=== PATIENT | male | born 1945 | race Caucasian/White ===

== ENCOUNTER → 2017-02-28 | Outpatient (CLI) | payer MEDICARE, OTHER ==
[2017-02-28 10:41] LABS: Prostate Specific Antigen 2.44 ng/mL (0.00-4.00)
== END | disposition home or self-care (01) ==
LOC: LABWHC1 07:01
PROVIDERS: ATTEND Internal Medicine Interventional Cardiology
DX: E78.2 Mixed hyperlipidemia (principal)
CPT/HCPCS: 36415; 80061; 84153; 84450; 84460

== ENCOUNTER → 2018-01-12 | Outpatient (CLI) | payer MEDICARE, OTHER ==
[2018-01-12 19:12] LABS: ALT 25 U/L (21-72); AST 18 U/L (17-59); Alkaline Phosphatase 74 U/L (38-126); Anion Gap 9 mmol/L; Blood Urea Nitrogen 16 mg/dL (9-20); Calcium 9.3 mg/dL (8.4-10.2); Carbon Dioxide 29 mmol/L (22-30); Chloride 97 mmol/L (98-107); Cholesterol 132 mg/dL (<200); Glucose 93 mg/dL (74-99); HDL Cholesterol 58 mg/dL (40-60); LDL Cholesterol,Calculated 61 mg/dL (0-99); Sodium 135 mmol/L (137-145); Total Bilirubin 1.5 mg/dL (0.2-1.3); Total Protein 6.9 g/dL (6.3-8.2); Triglycerides 64 mg/dL (<150)
[2018-01-13 01:30] LABS: Hemoglobin A1C 5.9 % (4.0-6.0)
== END | disposition home or self-care (01) ==
LOC: MMGSC 10:31
PROVIDERS: ATTEND Family Medicine
DX: E78.5 Hyperlipidemia, unspecified (principal); I10 Essential (primary) hypertension; R73.02 Impaired glucose tolerance (oral)
CPT/HCPCS: 36415; 80053; 80061; 83036

== ENCOUNTER → 2018-02-25 | Outpatient (CLI) | payer MEDICARE, OTHER ==
[2018-02-25 09:28] LABS: ALT 17 U/L (21-72); AST 16 U/L (17-59); Albumin 3.7 g/dL (3.5-5.0); Alkaline Phosphatase 64 U/L (38-126); Anion Gap 10 mmol/L; Blood Urea Nitrogen 16 mg/dL (9-20); Calcium 9.1 mg/dL (8.4-10.2); Carbon Dioxide 27 mmol/L (22-30); Chloride 100 mmol/L (98-107); Cholesterol 114 mg/dL (<200); Glucose 102 mg/dL (74-99); HDL Cholesterol 59 mg/dL (40-60); LDL Cholesterol,Calculated 47 mg/dL (0-99); Sodium 137 mmol/L (137-145); Total Bilirubin 1.4 mg/dL (0.2-1.3); Total Protein 6.6 g/dL (6.3-8.2); Triglycerides 41 mg/dL (<150)
== END | disposition home or self-care (01) ==
LOC: LABWHC1 08:19
PROVIDERS: ATTEND Internal Medicine Interventional Cardiology
DX: E78.2 Mixed hyperlipidemia (principal)
CPT/HCPCS: 36415; 80053; 80061

== ENCOUNTER 2018-03-07 07:54 | Day surgery (SDC) | payer MEDICARE, OTHER ==
[2018-03-03 11:42] VITALS: BMI 29.5
[~2018-03-07 07:54] MED LIST: LACTATED RINGERS 1,000 ML IV SCH; LIDOCAINE 1% 20 ML VIAL (10MG/ML) FOR IV START INTRADERMA PRN
[2018-03-07 08:36] VITALS: TEMP 97.8
[2018-03-07] MEDS ORDERED: PROPOFOL 10 MG/ML 20 ML VIAL IV ONE (09:14)
--- NOTE | 2018-03-07 09:59 | P.PCN ---
Date of Procedure: 03/07/18 Procedure(s) Performed: Procedure: Colonoscopy and biopsy and polypectomy. Preoperative diagnosis: Positive cologuard test. Postoperative diagnosis: 1. 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 2. Two sigmoid polyps snared at 30 and 50 cm from the anal verge. 3. Significant sigmoid diverticulosis with no evidence of acute diverticulitis or strictures. Preparation: HalfLytely prep. Sedation: Was provided by anesthesia. Brief clinical history: The patient is a 72-year-old male who is scheduled for this evaluation because of finding of cologuard positive test. The patient has no abdominal complaints, overt bleeding or anemia. No family history of colon cancer. This would be his first colonoscopy. Procedure: With the patient on his left lateral decubitus position and after informed consent and adequate sedation, the perianal area was inspected and it did not show any fissures or fistulas. There were no masses felt on digital rectal examination. The Olympus CFQ 160L video colonoscope was then inserted in the rectum in the usual fashion and advanced to the cecum. There was an extensive, flat and spread out polypoid area in the proximal right colon covering circumferentially a segment of 5-7 cm probably representing tubulovillous adenoma. Multiple biopsies obtained to rule out cancer. I also obtained picture of that area. There was significant diverticulosis in the sigmoid with no evidence of acute diverticulitis or strictures. At 50 cm from the anal verge, there was a medium-sized flat polyp which I removed piecemeal with the snare and at 30 cm from the anal verge, there was a pedunculated polyp measuring around 2 cm which was snared and retrieved by suctioning it to the tip of the endoscope and withdrawing the endoscope and restarting the examination. I retroflexed the endoscope in the rectum before the endoscope was withdrawn. The patient tolerated the procedure well. Plan: I summarized the findings to the patient. Will await pathology results and make further plans. I will keep you updated on his progress. He will follow up with you as planned.
[2018-03-07 10:01] VITALS: RESP 16
[2018-03-07 10:12] VITALS: BP 137/90; PULSE 83
== END 2018-03-07 10:43 | disposition home or self-care (01) ==
LOC: ORWHC2ENDO 07:54
DX: D12.2 Benign neoplasm of ascending colon (principal); D12.5 Benign neoplasm of sigmoid colon; K57.30 Diverticulosis of large intestine without perforation or abscess without bleeding; I10 Essential (primary) hypertension; E78.5 Hyperlipidemia, unspecified; J44.9 Chronic obstructive pulmonary disease, unspecified; M19.90 Unspecified osteoarthritis, unspecified site; I48.91 Unspecified atrial fibrillation; E66.9 Obesity, unspecified; Z68.29 Body mass index [BMI] 29.0-29.9, adult; Z79.02 Long term (current) use of antithrombotics/antiplatelets; Z79.899 Other long term (current) drug therapy
CPT/HCPCS: 88305; 45380; 45385; J2704

== ENCOUNTER → 2018-04-05 | Outpatient (CLI) | payer MEDICARE, OTHER ==
[2018-04-05 08:38] LABS: Anisocytosis Slight; HCT 41.1 % (39.0-53.0); HGB 13.2 gm/dL (13.0-17.5); Hypochromasia Slight; MCH 26.7 pg (25.0-35.0); MCHC 32.1 g/dL (31.0-37.0); MCV 83.4 fL (80.0-100.0); Mean Platelet Volume 7.1; Platelet Count 291 k/uL (150-450); RBC 4.93 m/uL (4.30-5.90); RDW 16.4 % (11.5-15.5); WBC 6.4 k/uL (3.8-10.6)
[2018-04-05 09:02] LABS: Anion Gap 13 mmol/L; Blood Urea Nitrogen 14 mg/dL (9-20); Carbon Dioxide 25 mmol/L (22-30); Chloride 98 mmol/L (98-107); Potassium 4.7 mmol/L (3.5-5.1); Sodium 136 mmol/L (137-145)
== END | disposition home or self-care (01) ==
LOC: LABPAT 08:01
PROVIDERS: ATTEND Internal Medicine Interventional Cardiology
DX: Z01.812 Encounter for preprocedural laboratory examination (principal); I25.10 Atherosclerotic heart disease of native coronary artery without angina pectoris
CPT/HCPCS: 36415; 80051; 82565; 84520; 85027

== ENCOUNTER 2018-04-18 06:19 | Day surgery (SDC) | payer MEDICARE, OTHER ==
[2018-04-07 12:11] VITALS: BMI 29.5
[2018-04-18] MEDS ORDERED: NITROGLYCERIN SL TABS 0.4 MG TAB SUBLINGUAL PRN (06:22)
[2018-04-18] MEDS ORDERED: ASPIRIN 325 MG TAB PO STA (06:22)
[2018-04-18] MEDS ORDERED: ATORVASTATIN 80 MG TAB PO STA (06:22)
[2018-04-18] MEDS ORDERED: ALPRAZolam 0.5 MG TAB PO PRN (06:22)
[2018-04-18] MEDS ORDERED: ALPRAZolam 0.25 MG TAB PO PRN (06:22)
[2018-04-18] MEDS ORDERED: SODIUM CHLORIDE 0.9% 1,000 ML in EMPTY BAG 1 BAG IV ONE (06:22)
[2018-04-18 06:53] VITALS: TEMP 97.55
[2018-04-18] MEDS ORDERED: VERAPAMIL 2.5 MG/ML 2 ML AMP ONE (07:14)
[2018-04-18] MEDS ORDERED: diphenhydrAMINE 50 MG/ML 1 ML VIAL ONE (07:25)
[2018-04-18] MEDS ORDERED: fentaNYL (PF) 50 MCG/ML 2 ML AMP ONE (07:25)
[2018-04-18] MEDS ORDERED: diphenhydrAMINE 50 MG/ML 1 ML VIAL IVP ONE (07:37)
[2018-04-18] MEDS ORDERED: fentaNYL (PF) 50 MCG/ML 2 ML AMP IV ONE (07:37)
[2018-04-18] MEDS ORDERED: IV FLUID CONTINUATION 950 ML IV ONE (07:38)
[2018-04-18] MEDS ORDERED: LIDOCAINE 2% INJ 20 MG/ML SQ ONE (07:43)
[2018-04-18] MEDS ORDERED: VERAPAMIL SYRINGE (5 MG/10 ML) INTRAARTER ONE (07:45)
[2018-04-18] MEDS ORDERED: HEPARIN SODIUM 1,000 UN/ML (10ML VL) ONE (07:54)
[2018-04-18] MEDS ORDERED: HEPARIN SODIUM 1,000 UN/ML (10ML VL) IV ONE (07:55)
[2018-04-18] MEDS ORDERED: IOPAMIDOL-370 125ML BTL INJ ONE (07:58)
[2018-04-18] MEDS ORDERED: RX INFO: IV CONTRAST WAS GIVEN 1 EACH MISC MISCELLANE PRN (08:18)
[2018-04-18] MEDS ORDERED: SODIUM CHLORIDE 0.9% 1,000 ML IV SCH (08:30)
--- NOTE | 2018-04-18 08:51 | CC ---
CARDIAC CATHETERIZATION REPORT Mr. Frank is a 72-year-old male with a known history of chronic persistent atrial fibrillation, history of hypertension who has been complaining of symptoms of dyspnea. He underwent a myocardial perfusion imaging that revealed evidence of inducible ischemia involving the inferior wall. In view of that, recommendation was made regarding cardiac catheterization. The procedure as well as the risks and the complications were discussed with the patient who is in full understanding and agreement. PROCEDURE: Patient was brought to [facility] in a fasting semi-sedated state after receiving fentanyl and Benadryl and achieving moderate conscious sedated state. He was using Xylocaine anesthesia in the Seldinger technique, a 6-Guamanian sheath was introduced in the right radial artery. Selective right and left angiography performed using 5-Guamanian 3.5 bend right right and left Taylor catheter. Multiple views of the coronary artery including hemiaxial views were obtained. Following that 5-Guamanian tight pigtail catheter was introduced in the left ventricle and 30-degree ABRAHAM view of the left ventricle was obtained. Following that, the catheter and sheaths were removed. Hemostasis was obtained with deployment of a TR band. There was no immediate complication. Patient was returned to his room in stable condition. Of note, the patient received 5000 units of intravenous heparin as well as intra- arterial verapamil. FINDINGS: FLUOROSCOPY: There was calcification involving the left anterior descending artery. LEFT MAIN: This is a large-sized vessel trifurcating in the left circumflex, left anterior descending artery and ramus intermedius. Left main coronary artery has no evidence of high-grade stenosis. LEFT ANTERIOR DESCENDING ARTERY: This is a large-sized vessel reaching to the apex with a wraparound apex segment giving rise to a small diagonal branch proximally. After the takeoff of the diagonal branch and first septal life sciences manager, there is tubular lesion of about 40% without any evidence of high-grade stenosis. LEFT CIRCUMFLEX: This is a nondominant vessel giving rise to large obtuse marginal branch. The left circumflex obtuse marginal branch has intimal disease of about 30% to 40% without any evidence of high-grade stenosis. RAMUS INTERMEDIUS: This is a small size vessel that has intimal disease without any evidence of high-grade stenosis. RIGHT CORONARY ARTERY: This is a dominant vessel large in caliber bifurcating distally PDA and posterolateral segment and branches. The right coronary artery in mid segment has an eccentric lesion of about 30% to 40%. The rest of the vessel has no high-grade stenosis. LEFT VENTRICULOGRAM: Left ventriculogram was performed in 30-degree ABRAHAM view and revealed normal left ventricular size asystolic function, ejection fraction 60%. There was no significant mitral regurgitation. HEMODYNAMICS: There was no gradient across the aortic valve. The left ventricular end- diastolic pressure was 16 to 20 mmHg. CONCLUSION: 1. Mild to moderate triple-vessel coronary artery disease. 2. Calcified left anterior descending artery. 3. Normal left ventricular size and systolic function. RECOMMENDATION: In view of finding anatomy, I recommend continue medical therapy with aggressive coronary risk modifications being initiated. Those findings and recommendation were discussed with the patient and his family and are in full understanding and agreement. Duration of procedure is 18 minutes. MMODL / PETEN: [id number] /
[2018-04-18] MEDS ORDERED: amLODIPine 5 MG TAB PO SCH (09:00)
[2018-04-18] MEDS ORDERED: CHOLECALCIFEROL 1,000 UNIT TAB PO SCH (09:00)
[2018-04-18] MEDS ORDERED: METOPROLOL TARTRATE 50 MG TAB PO SCH (09:00)
--- NOTE | 2018-04-18 09:00 | LTR ---
April 18, 2018 Re: Curtis Frank Dear Dr. Rivas: I had the opportunity to perform cardiac catheterization on Mr. Frank at [facility] on the 18 of April and a full copy of the procedure note will be forwarded to you. In brief, he was found to have [id number] coronary artery disease without any significant progression compared with the images obtained in 2015. Based on those findings, I recommend continue medical therapy with aggressive coronary risk modification that has been initiated. Thank you again for allowing me the opportunity to participate in his care. Please feel free to call for any questions. Sincerely yours, MD ARLET SalmeronL / PETEN: [id number] /
[2018-04-18 12:06] VITALS: RESP 16
[2018-04-18 13:35] VITALS: BP 152/78; PULSE 63
[2018-04-19] MEDS ORDERED: NON-FORMULARY DRUG (Lovastatin 20 MG) PO SCH (08:20)
== END 2018-04-18 13:35 | disposition home or self-care (01) ==
LOC: CATHCVL 06:19
PROVIDERS: ATTEND Internal Medicine Interventional Cardiology
DX: I25.10 Atherosclerotic heart disease of native coronary artery without angina pectoris (principal); I25.84 Coronary atherosclerosis due to calcified coronary lesion; I10 Essential (primary) hypertension; I42.8 Other cardiomyopathies; E78.2 Mixed hyperlipidemia; F17.210 Nicotine dependence, cigarettes, uncomplicated; Z82.49 Family history of ischemic heart disease and other diseases of the circulatory system; I48.1 Persistent atrial fibrillation; Z79.01 Long term (current) use of anticoagulants; Z79.899 Other long term (current) drug therapy
CPT/HCPCS: 93458; C1894; C1769; J2001; J1200; J3010; J1644; Q9967

== ENCOUNTER → 2018-11-17 | Outpatient (CLI) | payer MEDICARE, OTHER ==
[2018-11-17 07:31] LABS: Anisocytosis Slight; HCT 34.8 % (39.0-53.0); HGB 10.6 gm/dL (13.0-17.5); Hypochromasia Marked; MCH 24.6 pg (25.0-35.0); MCHC 30.5 g/dL (31.0-37.0); MCV 80.9 fL (80.0-100.0); Mean Platelet Volume 7.4; Platelet Count 304 k/uL (150-450); RDW 16.2 % (11.5-15.5); WBC 6.8 k/uL (3.8-10.6)
[2018-11-17 16:02] LABS: ALT 11 U/L (10-49); AST 15 U/L (14-35); Alkaline Phosphatase 80 U/L (41-126); Calcium 8.6 mg/dL (8.7-10.3); Carbon Dioxide 26.8 mmol/L (21.6-31.8); Chloride 102 mmol/L (96-109); Cholesterol 111 mg/dL (0-200); Glucose 105 mg/dL (70-110); Potassium 4.6 mmol/L (3.5-5.5); Sodium 135 mmol/L (135-145); Total Bilirubin 1.2 mg/dL (0.3-1.2); Triglycerides <50.0 mg/dL (0.0-149.0); VLDL Calculation 9.98 mg/dL (5.00-40.00)
== END ==
LOC: LABWHC1 06:52
PROVIDERS: ATTEND Family Medicine
DX: Z00.00 Encounter for general adult medical examination without abnormal findings (principal); E78.2 Mixed hyperlipidemia
CPT/HCPCS: 36415; 80053; 80061; 84439; 84443; 85027

== ENCOUNTER 2019-01-16 10:40 | Day surgery (SDC) | payer MEDICARE, OTHER ==
[2019-01-12 10:58] VITALS: BMI 31.7
[2019-01-16 11:23] VITALS: TEMP 97.1
[2019-01-16] MEDS ORDERED: PROPOFOL 10 MG/ML 20 ML VIAL IV ONE (12:07)
[2019-01-16] MEDS ORDERED: LIDOCAINE 1% INJ 10MG/ML (20 ML MDV) ONE (12:07)
[2019-01-16] MEDS ORDERED: KETAMINE 10 MG/ML 20 ML VIAL ONE (12:07)
[2019-01-16 12:46] VITALS: RESP 18
--- NOTE | 2019-01-16 12:54 | P.PCN ---
Date of Procedure: 01/16/19 Procedure(s) Performed: Procedure: 1. Esophagogastroduodenoscopy and biopsy. 2. Colonoscopy and biopsy. Preoperative diagnosis: Anemia, history of positive cologuard and history of tubulovillous adenoma. Postoperative diagnosis: 1. Hiatal hernia with low-grade distal esophagitis. 2. Gastritis and duodenitis. 3. Sigmoid diverticulosis with no evidence of acute diverticulitis or strictures. 4. Previously described extensive flat and spread out polypoid area in the proximal right colon and is again visualized and biopsied. Preparation: HalfLytely prep. Sedation: Was provided by anesthesia. Brief clinical history: The patient is a 73-year-old male who was evaluated in the office last month because of positive cologuard test. The patient has anemia with decreased MCV but no overt bleeding. He had colonoscopy with me in February 2018 and had an extensive spread out lesion in the right colon that on biopsies showed tubulovillous adenoma with no dysplasia. 2 sigmoid polyps were snared at that time and those showed tubulovillous adenoma with no dysplasia. This evaluation is to assess for a possible upper GI source of bleeding and re- evaluate the right colon area to make further plans. Procedure: With the patient on his left lateral decubitus position and after informed consent and adequate sedation, I passed the Olympus GIF H190 video upper endoscope through the cricopharyngeus down the esophagus. There was a small sliding hiatal hernia but no obvious esophagitis or complicated reflux disease. The endoscope was then passed into the stomach which was insufflated with air and inspected in detail including the retroflex view in the cardia. There was some mottling and erythema in the antrum and few erosions but no ulcers or bleeding. Pyloric channel did not show any ulcers. Duodenal bulb showed erythema, edema and multiple erosions but no ulcers or active bleeding. Post bulbar area and descending duodenum appeared within normal limits. I obtained biopsies from the antrum and esophagus then the endoscope was withdrawn and I proceeded with the colonoscopy. The perianal area was inspected and it did not show any fissures or fistulas. There were no masses felt on digital rectal examination. The Olympus CFH 190L video colonoscope was then inserted in the rectum in the usual fashion and advanced to the cecum. There was extensive, flat and spread out polypoid area in the proximal right colon covering circumferentially a segment of 5-7 cm as previously described. A picture and multiple biopsies were obtained. There was significant diverticulosis in the sigmoid with no evidence of acute diverticulitis or strictures. No other pathology was noted. I retroflexed the endoscope in the rectum before the endoscope was withdrawn. The patient tolerated the procedure well. Plan: I summarized the findings to the patient. Will await pathology results and make further plans. Consideration can be made for resection of the involved area in the right colon if cleared by you and by surgery. I will keep you updated on his progress.
[2019-01-16 13:02] VITALS: BP 131/82; PULSE 75
== END 2019-01-16 13:36 | disposition home or self-care (01) ==
LOC: ORWHC2ENDO 10:40
DX: D12.2 Benign neoplasm of ascending colon (principal); K29.50 Unspecified chronic gastritis without bleeding; K20.9 Esophagitis, unspecified; D64.9 Anemia, unspecified; K57.30 Diverticulosis of large intestine without perforation or abscess without bleeding; K29.80 Duodenitis without bleeding; Z86.010 Personal history of colon polyps; I10 Essential (primary) hypertension; M19.90 Unspecified osteoarthritis, unspecified site; I48.91 Unspecified atrial fibrillation; E78.5 Hyperlipidemia, unspecified; I25.10 Atherosclerotic heart disease of native coronary artery without angina pectoris; E66.9 Obesity, unspecified; Z68.31 Body mass index [BMI] 31.0-31.9, adult; Z79.01 Long term (current) use of anticoagulants; Z79.899 Other long term (current) drug therapy
CPT/HCPCS: 45380; 43239; 88305; J2001; J2704

== ENCOUNTER 2019-03-27 11:07 | Inpatient (IN) | payer MEDICARE, OTHER ==
[2019-03-27] MEDS ORDERED: IPRATROPIUM-ALBUTEROL 3 ML NEB INHALATION STA (11:22)
[2019-03-27 11:46] LABS: Anisocytosis Slight; Basophils # (A) 0.1 k/uL (0-0.2); Basophils % (A) 1 %; Eosinophils # (A) 0.4 k/uL (0-0.7); Eosinophils % (A) 5 %; HCT 33.9 % (39.0-53.0); HGB 10.1 gm/dL (13.0-17.5); Hypochromasia Marked; Lymphocytes # (A) 1.4 k/uL (1.0-4.8); Lymphocytes % (A) 19 %; MCHC 29.7 g/dL (31.0-37.0); MCV 74.2 fL (80.0-100.0); Mean Platelet Volume 7.9; Microcytosis Slight; Monocytes # (A) 0.6 k/uL (0-1.0); Monocytes % (A) 9 %; Neutrophils # (A) 4.5 k/uL (1.3-7.7); Neutrophils % (A) 63 %; Platelet Count 329 k/uL (150-450); Poikilocytosis Slight; RBC 4.57 m/uL (4.30-5.90); RDW 16.8 % (11.5-15.5); WBC 7.1 k/uL (3.8-10.6)
--- NOTE | 2019-03-27 11:49 | ED ---
SOB HPI - General Chief Complaint: Shortness of Breath Stated Complaint: fluid on lungs Time Seen by Provider: 03/27/19 11:17 Source: patient, RN notes reviewed, old records reviewed Mode of arrival: ambulatory Limitations: no limitations - History of Present Illness Initial Comments: This is a 73-year-old male the ER for evaluation. He is presented today for evaluation of shortness of breath. Patient has long history of smoking with risk factors for heart disease no history of heart failure. Recent travel to and from [place] in a car, he has significant swelling of his lower extremities and significant shortness of breath. Positive cough no fever. No current chest pain. MD Complaint: shortness of breath, cough -: days(s), week(s) Severity: moderate Severity scale (1-10): 4 Consistency: constant Improves With: oxygen, rest Worsens With: exertion Known History Of: COPD, congestive heart failure Context: recent URI Associated Symptoms: chest pain, pain with inspiration Treatments Prior to Arrival: none - Related Data Home Medications Medication Instructions Recorded Confirmed Lovastatin [Mevacor] 20 mg PO MOWEFR 04/29/15 03/27/19 Metoprolol Tartrate [Lopressor] 100 mg PO BID 03/03/18 03/27/19 amLODIPine [Norvasc] 5 mg PO DAILY 03/03/18 03/27/19 Apixaban [Eliquis] 5 mg PO DAILY 01/12/19 03/27/19 Furosemide [Lasix] 20 mg PO DAILY 03/27/19 03/27/19 Allergies Allergy/AdvReac Type Severity Reaction Status Date / Time No Known Allergies Allergy Verified 03/27/19 11:19 Review of Systems ROS Statement: Those systems with pertinent positive or pertinent negative responses have been documented in the HPI. ROS Other: All systems not noted in ROS Statement are negative. Past Medical History Past Medical History: Atrial Fibrillation, Hyperlipidemia, Hypertension, Osteoa rthritis (OA) Additional Past Medical History / Comment(s): ARTHRITIS RIGHT ANKLE- USES CANE PRN. hx:A-Fib tx with cardioversion History of Any Multi-Drug Resistant Organisms: None Reported Past Surgical History: Heart Catheterization, Orthopedic Surgery, Tonsillectomy Additional Past Surgical History / Comment(s): ORIF LEFT ELBOW X 3. LEFT GANGLION CYST. , CARDIOVERSION, fx- rt femur repair with plates and screws 03/29 Past Anesthesia/Blood Transfusion Reactions: No Reported Reaction Past Psychological History: No Psychological Hx Reported Smoking Status: Current every day smoker Past Alcohol Use History: Daily Past Drug Use History: None Reported - Past Family History Daughter(s) Family Medical History: Neurologic Disorder Father Family Medical History: Myocardial Infarction (ME) Mother Family Medical History: Cancer Sister(s) Family Medical History: Myocardial Infarction (ME) General Exam Limitations: no limitations General appearance: alert, in no apparent distress, anxious Head exam: Present: atraumatic, normocephalic, normal inspection Eye exam: Present: normal appearance, PERRL, EOMI. Absent: scleral icterus, conjunctival injection, periorbital swelling ENT exam: Present: normal exam, mucous membranes moist Neck exam: Present: normal inspection. Absent: tenderness, meningismus, lymphadenopathy Respiratory exam: Present: respiratory distress, wheezes, accessory muscle use, decreased breath sounds, prolonged expiratory. Absent: rales, rhonchi, stridor Cardiovascular Exam: Present: regular rate, normal rhythm, normal heart sounds. Absent: systolic murmur, diastolic murmur, rubs, gallop, clicks GI/Abdominal exam: Present: soft, normal bowel sounds. Absent: distended, tenderness, guarding, rebound, rigid Extremities exam: Present: normal inspection, full ROM, normal capillary refill. Absent: tenderness, pedal edema, joint swelling, calf tenderness Back exam: Present: normal inspection Neurological exam: Present: alert, oriented X3, CN II-XII intact Psychiatric exam: Present: normal affect, normal mood Skin exam: Present: warm, dry, intact, normal color. Absent: rash Course Vital Signs 03/27/19 03/27/19 03/27/19 11:11 12:11 12:20 Temperature 98 F Pulse Rate 74 69 74 Respiratory 24 Rate Blood Pressure 126/71 O2 Sat by Pulse 94 L Oximetry 03/27/19 13:11 Temperature Pulse Rate 69 Respiratory 22 Rate Blood Pressure 145/93 O2 Sat by Pulse 95 Oximetry - Reevaluation(s) Reevaluation #1: 03/27/19 12:35 Medical record is reviewed Reevaluation #2: 03/27/19 12:35 Patient feels short of breath despite breathing treatment Medical Decision Making - Medical Decision Making 73 male the ER for shortness of breath persistent shortness of breath history of COPD and heart disease. Heart failure. Patient be admitted for cardiology and pulmonology evaluation. Breathing treatments and monitoring of cardiopulmonary status - Lab Data Result diagrams: 03/27/19 11:35 03/27/19 11:35 Lab Results 03/27/19 03/27/19 03/27/19 Range/Units 11:35 11:35 11:35 WBC 7.1 (3.8-10.6) k/uL RBC 4.57 (4.30-5.90) m/uL Hgb 10.1 L (13.0-17.5) gm/dL Hct 33.9 L (39.0-53.0) % MCV 74.2 L (80.0-100.0) fL MCH 22.0 L (25.0-35.0) pg MCHC 29.7 L (31.0-37.0) g/dL RDW 16.8 H (11.5-15.5) % Plt Count 329 (150-450) k/uL Neutrophils % 63 % Lymphocytes % 19 % Monocytes % 9 % Eosinophils % 5 % Basophils % 1 % Neutrophils # 4.5 (1.3-7.7) k/uL Lymphocytes # 1.4 (1.0-4.8) k/uL Monocytes # 0.6 (0-1.0) k/uL Eosinophils # 0.4 (0-0.7) k/uL Basophils # 0.1 (0-0.2) k/uL Hypochromasia Marked Poikilocytosis Slight Anisocytosis Slight Microcytosis Slight PT (9.0-12.0) sec INR (<1.2) APTT (22.0-30.0) sec Sodium 133 L (137-145) mmol/L Potassium 4.4 (3.5-5.1) mmol/L Chloride 96 L (98-107) mmol/L Carbon Dioxide 29 (22-30) mmol/L Anion Gap 8 mmol/L BUN 18 (9-20) mg/dL Creatinine 0.85 (0.66-1.25) mg/dL Est GFR (CKD-EPI)AfAm >90 (>60 ml/min/1.73 sqM) Est GFR (CKD-EPI)NonAf 88 (>60 ml/min/1.73 sqM) Glucose 106 H (74-99) mg/dL Calcium 9.4 (8.4-10.2) mg/dL Magnesium 1.6 (1.6-2.3) mg/dL Total Bilirubin 1.6 H (0.2-1.3) mg/dL AST 13 L (17-59) U/L ALT 24 (21-72) U/L Alkaline Phosphatase 96 (38-126) U/L Troponin I (0.000-0.034) ng/mL NT-Pro-B Natriuret Pep 2980 pg/mL Total Protein 7.0 (6.3-8.2) g/dL Albumin 3.9 (3.5-5.0) g/dL 03/27/19 03/27/19 Range/Units 11:35 11:35 WBC (3.8-10.6) k/uL RBC (4.30-5.90) m/uL Hgb (13.0-17.5) gm/dL Hct (39.0-53.0) % MCV (80.0-100.0) fL MCH (25.0-35.0) pg MCHC (31.0-37.0) g/dL RDW (11.5-15.5) % Plt Count (150-450) k/uL Neutrophils % % Lymphocytes % % Monocytes % % Eosinophils % % Basophils % % Neutrophils # (1.3-7.7) k/uL Lymphocytes # (1.0-4.8) k/uL Monocytes # (0-1.0) k/uL Eosinophils # (0-0.7) k/uL Basophils # (0-0.2) k/uL Hypochromasia Poikilocytosis Anisocytosis Microcytosis PT 10.9 (9.0-12.0) sec INR 1.0 (<1.2) APTT 28.1 (22.0-30.0) sec Sodium (137-145) mmol/L Potassium (3.5-5.1) mmol/L Chloride (98-107) mmol/L Carbon Dioxide (22-30) mmol/L Anion Gap mmol/L BUN (9-20) mg/dL Creatinine (0.66-1.25) mg/dL Est GFR (CKD-EPI)AfAm (>60 ml/min/1.73 sqM) Est GFR (CKD-EPI)NonAf (>60 ml/min/1.73 sqM) Glucose (74-99) mg/dL Calcium (8.4-10.2) mg/dL Magnesium (1.6-2.3) mg/dL Total Bilirubin (0.2-1.3) mg/dL AST (17-59) U/L ALT (21-72) U/L Alkaline Phosphatase (38-126) U/L Troponin I <0.012 (0.000-0.034) ng/mL NT-Pro-B Natriuret Pep pg/mL Total Protein (6.3-8.2) g/dL Albumin (3.5-5.0) g/dL - EKG Data -: EKG Interpreted by Me (EKG shows undetermined rhythm rate of 77, QRS 02, QTc 482) - Radiology Data Radiology results: report reviewed (Chest x-rays positive for CHF), image reviewed Disposition Clinical Impression: Congestive heart failure, Acute pulmonary edema, Acute exacerbation of chronic obstructive airways disease Disposition: ADMITTED IP TO THIS HOSP Condition: Good Is patient prescribed a controlled substance at d/c from ED?: No Referrals: Summer Vickers MD [Primary Care Provider] - 1-2 days
[2019-03-27 11:55] LABS: ALT 24 U/L (21-72); AST 13 U/L (17-59); Albumin 3.9 g/dL (3.5-5.0); Alkaline Phosphatase 96 U/L (38-126); Anion Gap 8 mmol/L; Blood Urea Nitrogen 18 mg/dL (9-20); Calcium 9.4 mg/dL (8.4-10.2); Carbon Dioxide 29 mmol/L (22-30); Chloride 96 mmol/L (98-107); Glucose 106 mg/dL (74-99); Magnesium 1.6 mg/dL (1.6-2.3); Potassium 4.4 mmol/L (3.5-5.1); Sodium 133 mmol/L (137-145); Total Bilirubin 1.6 mg/dL (0.2-1.3)
[2019-03-27 11:58] LABS: Partial Thromboplastin Time 28.1 sec (22.0-30.0); Prothrombin Time 10.9 sec (9.0-12.0)
--- NOTE | 2019-03-27 12:11 | XR ---
EXAMINATION TYPE: XR chest 2V DATE OF EXAM: 03/27/2019 COMPARISON: 03/18/2016 HISTORY: Difficulty breathing TECHNIQUE: Frontal and lateral views of the chest are obtained. FINDINGS: There is a new small right pleural effusion and mild pulmonary vascular congestion with en larged cardiac mediastinal silhouette. Right basilar airspace disease is also new. No acute osseous p athology. Minimal degenerative change of the thoracic spine. Small hiatal hernia is present. IMPRESSION: New mild pulmonary vascular congestion and small right pleural effusion with right basil ar atelectasis favors decompensated congestive heart failure.
[2019-03-27] MEDS ORDERED: methylPREDNISolone SOD SUCCI 125 MG/2 ML VIAL IV STA (13:10)
[2019-03-27] MEDS ORDERED: IPRATROPIUM-ALBUTEROL 3 ML NEB INHALATION PRN (13:10)
[2019-03-27] MEDS ORDERED: ASPIRIN 325 MG TAB PO STA (13:10)
[2019-03-27] MEDS: FUROSEMIDE 10 MG/ML 4 ML VIAL IV SCH ×2 (14:00→19:59)
[2019-03-27] MEDS: IPRATROPIUM-ALBUTEROL 3 ML NEB INHALATION SCH ×2 (15:37→20:56)
--- NOTE | 2019-03-27 17:15 | CONS ---
CONSULTATION Mr. Frank is a 73-year-old male with known history of chronic persistent atrial fibrillation, history of coronary artery disease, chronic tobacco use and hyperlipidemia who presented from Dr. Rivas's office with symptoms of dyspnea. He was recently seen in our office with worsening peripheral edema and was initiated on diuretics, with some improvement in his peripheral edema and some weight loss. He had an x-ray done today at Dr. Rivas's office that revealed a pleural effusion. The patient continues to have dyspnea on exertion with no significant improvement. He has no chest pain. He has some cough. No wheezing. No clear PND or orthopnea. He is trying to quit smoking. He is better with his tobacco use. In the past his left ventricular systolic function was preserved and he underwent cardiac catheterization in April of 2018, was found to have mild to moderate triple-vessel coronary artery disease with preserved systolic function. His coronary risk factors are remarkable for smoking, hypertension and hyperlipidemia. He is nondiabetic. HOME MEDICATIONS: Include: 1. Eliquis 5 mg twice a day. 2. Amlodipine 5 mg daily. 3. Metoprolol tartrate 100 mg twice a day. 4. Lovastatin 20 mg 6 days a week. 5. Lasix 20 mg daily. REVIEW OF SYSTEMS: RESPIRATORY SYSTEM: He has chronic dyspnea on exertion with chronic obstructive lung disease. GI SYSTEM: No recent GI bleeding. No peptic ulcer disease. SYSTEM: No dysuria or hematuria. NERVOUS SYSTEM: No stroke or seizure. PHYSICAL EXAMINATION: He is a 73-year-old male, alert, oriented, in no apparent distress, lying supine. Blood pressure 145/90 with a heart rate in the 70s. HEAD: Normocephalic. Eyes: Sclerae anicteric. NECK: Good carotid upstroke. No bruit. LUNGS: Diffuse decreased breath sounds bilaterally with decreased breath sounds at the bases, more noted on the right base. HEART: Irregularly irregular. S1, S2. No S3, with a systolic murmur heard at the base. No diastolic murmur. No rub. ABDOMEN: Soft, nontender, obese. Bowel sounds. No organomegaly. EXTREMITIES: Plus 2 edema bilaterally. LAB DATA: Lab data revealed a hemoglobin of 10.1, MCV of 74.2, BUN and creatinine of 18 and 0.8. Troponin less than 0.012. NT proBNP of 2980. Chest x-ray is consistent with CHF with a right-sided effusion. EKG revealed atrial fibrillation with nonspecific ST-T wave changes with a rate of 77. IMPRESSION: 1. Findings consistent with congestive heart failure with a preserved systolic function. 2. Probably an element of chronic obstructive pulmonary disease. 3. Chronic tobacco use. 4. Mild to moderate coronary artery disease. 5. Chronic persistent atrial fibrillation. 6. Anemia, microcytic, of unclear etiology. No documentation of bleeding in the past. 7. History of hypertension. 8. Hyperlipidemia. RECOMMENDATIONS: From the cardiac standpoint, I will start him on IV Lasix. I will resume his anticoagulation as well as beta svetlana. I will obtain a repeat echocardiogram. The effusion does not appear to be large enough that thoracentesis is needed at this point. Depending on his progress, further recommendations will be made. Thank you for this consult. Will follow with you. FRANK / LOVE: [phone] /
[2019-03-27] MEDS ORDERED: NALOXONE 0.4 MG/ML 1 ML VIAL IV PRN (18:39)
[2019-03-27] MEDS ORDERED: ACETAMINOPHEN TAB 325 MG TAB PO PRN (18:39)
--- NOTE | 2019-03-27 18:43 | P.HPIM ---
History of Present Illness H&P Date: 03/27/19 Chief Complaint: Shortness of breath 73 year old M with PMH of hypertension and hyperlipidemia presents the ED for shortness of breath. Patient reports dyspnea on exertion is in ongoing since December. Prior to December, patient reports his exercise tolerance to be at least 1 mile which is been progressively getting worse, can't walk more than 1/4 of a block this time. Patient also reports swelling from his toes to his knees that improve with lower extremity elevation. also reports that the patient has been fatigued and generalized weakness. Of note, patient reports going to [place] in December, drove both ways. Patient reports smoking one half packs per day for the past 60 years. He has no diagnosis of COPD or CHF. Patient reports seeing Dr. Guzman for atrial fibrillation, underwent cardioversion 2-3 years ago. Patient denies any headache, nausea, vomiting, fever, chest pain, palpitations, changes in urination or bowel habits. No changes in appetite or weight. Patient denies dizziness, numbness/weakness/tingling of the extremities. He does complain of dry cough. In the ED, vital signs are stable. CBC showed anemia with hemoglobin at 10.1, microcytosis. Correlation panel was negative. CMP showed a sodium of 133, chloride of 96, glucose of 106. Total bilirubin is 1.6, AST of 13. Troponin was less than 0.012, EKG showing sinus rhythm with prolonged QT. BNP was 2980 with chest x-ray showing signs of decompensated CHF. Patient is admitted for COPD and CHF exacerbation. Cardiology was consulted. Review of Systems Pertinent positives and negatives as discussed in HPI, a complete review of systems was performed and all other systems are negative. Past Medical History Past Medical History: Atrial Fibrillation, Hyperlipidemia, Hypertension, Osteoarthritis (OA) Additional Past Medical History / Comment(s): Afib, nonischemic cardiomyopathy per past medical record but pt states he is not aware of this, past arthritis R ankle, colon polyps-benign, hiatal hernis, gastritis, duodenitis, recent bilateral ankle edema-started on lasix History of Any Multi-Drug Resistant Organisms: None Reported Past Surgical History: Heart Catheterization, Orthopedic Surgery, Tonsillectomy Additional Past Surgical History / Comment(s): 01/2019 EGD with bx and colonoscopy with bx, ORIF LEFT ELBOW X 3, LEFT GANGLION CYST. , CARDIOVERSION, fx- rt femur repair with plates and screws 03/29 Past Anesthesia/Blood Transfusion Reactions: No Reported Reaction Smoking Status: Current every day smoker - Past Family History Daughter(s) Family Medical History: Neurologic Disorder Additional Family Medical History / Comment(s): Daughter is . Father Family Medical History: Myocardial Infarction (OK) Additional Family Medical History / Comment(s): Father of a OK at the age of 60yrs. Mother Family Medical History: Cancer Additional Family Medical History / Comment(s): Mother of cancer at the age of 81 yrs. Pt cannot recall type of cancer. Sister(s) Family Medical History: Myocardial Infarction (OK) Additional Family Medical History / Comment(s): Sister of a OK at the age of 48yrs. Medications and Allergies Home Medications Medication Instructions Recorded Confirmed Type Lovastatin [Mevacor] 20 mg PO MOWEFR 04/29/15 03/27/19 History Metoprolol Tartrate [Lopressor] 100 mg PO BID 03/03/18 03/27/19 History amLODIPine [Norvasc] 5 mg PO DAILY 03/03/18 03/27/19 History Apixaban [Eliquis] 5 mg PO DAILY 01/12/19 03/27/19 History Furosemide [Lasix] 20 mg PO DAILY 03/27/19 03/27/19 History Allergies Allergy/AdvReac Type Severity Reaction Status Date / Time No Known Allergies Allergy Verified 03/27/19 11:19 Physical Exam Vitals: Vital Signs Temp Pulse Resp BP Pulse Ox 03/27/19 16:32 97 F L 85 22 156/98 97 03/27/19 16:00 86 22 144/93 03/27/19 15:50 76 03/27/19 15:37 76 03/27/19 15:30 76 22 138/87 03/27/19 15:00 24 157/83 03/27/19 14:30 66 22 150/95 03/27/19 14:00 75 22 145/93 96 03/27/19 13:30 75 20 145/93 98 03/27/19 13:11 69 22 145/93 95 03/27/19 13:00 74 22 133/82 95 03/27/19 12:20 74 03/27/19 12:11 69 03/27/19 12:00 133/81 05/14/19 11:11 98 F 74 24 126/71 94 L Intake and Output 03/27/19 03/27/19 03/27/19 06:59 14:59 22:59 Output Total 2189 Balance -2189 Output: Urine 2189 Other: # Voids 3 Weight 102.058 kg 102.27 kg General: [non toxic], [no distress], [appears at stated age] Derm: [warm], [dry] Head: [atraumatic], [normocephalic], [symmetric] Eyes: [EOMI], [no lid lag], [anicteric sclera] Mouth: [no lip lesion], [mucus membranes moist] Cardiovascular: [S1S2 reg], [no murmur], [positive posterior tibial pulse bilateral], Lungs: [Clear to auscultation bilaterally], [rales at the bases] , [no accessory muscle use] Abdominal: [soft], [ nontender to palpation], [no guarding], [no appreciable organomegaly] Ext: [no gross muscle atrophy], [1+ lower extremity edema, left greater than right], [no contractures] Neuro: [ CN II-XI grossly intact], [no focal neuro deficits] Psych: [Alert], [oriented], [appropriate affect] Results CBC & Chem 7: 03/27/19 11:35 03/27/19 11:35 Labs: Abnormal Lab Results - Last 24 Hours (Table) 03/27/19 03/27/19 Range/Units 11:35 11:35 Hgb 10.1 L (13.0-17.5) gm/dL Hct 33.9 L (39.0-53.0) % MCV 74.2 L (80.0-100.0) fL MCH 22.0 L (25.0-35.0) pg MCHC 29.7 L (31.0-37.0) g/dL RDW 16.8 H (11.5-15.5) % Sodium 133 L (137-145) mmol/L Chloride 96 L (98-107) mmol/L Glucose 106 H (74-99) mg/dL Total Bilirubin 1.6 H (0.2-1.3) mg/dL AST 13 L (17-59) U/L Thrombosis Risk Factor Assmnt - Choose All That Apply Any of the Below Risk Factors Present?: Yes Each Factor Represents 1 point: Obesity (BMI >25), Swollen legs (current) Other Risk Factors: Yes Each Risk Factor Represents 2 Points: Age 61-74 years Other congenital or acquired thrombophilia - If yes, enter type in comment: No Thrombosis Risk Factor Assessment Total Risk Factor Score: 4 Thrombosis Risk Factor Assessment Level: Moderate Risk Assessment and Plan Assessment: Assessment and Plan Shortness of breath likely secondary to mixed COPD and CHF exacerbation. COPD exacerbation CHF exacerbation Atrial fibrillation Hypertension Anemia Active smoker Obesity Patient is afebrile with no leukocytosis. Troponin is less than 0.012, EKG showing sinus rhythm with prolonged QT. BNP 2980, Chest x-ray showing mild pulmonary vascular congestion and small right pleural effusion. Plan: Optimize COPD medications. Trend 2/EKG to rule out ACS. Lasix IV for diuresis of CHF exacerbation. Follow cardiology consult. Follow pulmonology consult. Active smoker. Plan: DuoNeb 4 times a day scheduled and as needed for shortness of breath and wheezing. Continue Solu-Medrol IV. O2 per NC to maintain O2 saturation greater than 92%. Follow pulmonology consult. Plan: Diuresis with Lasix 40 mg IV twice a day. Continue metoprolol by mouth. Strict intake and output. Daily weights. Follow-up echocardiogram. Follow cardiology consultation. Plan: Continue metoprolol for rate control. Continue Eliquis for anticoagulation. Keep K > 4 and Mg > 2. Follow cardiology consultation. BP 156/98. Plan: Continue metoprolol and amlodipine. Monitor vitals, adjust medications as necessary. Hemoglobin 10.1 with microcytosis. Unknown etiology. Plan: Daily CBC. Follow iron studies. Transfuse if hemoglobin less than 7. Contributes to COPD. Plan: Nicotine patch. Quit. BMI 33.3. Plan: Structured weight loss program. DVT prophylaxis: [SCD boots] Discussed with: [Patient and family] Anticipated discharge: [2 days] Anticipated discharge place: [Home] A total of [45] minutes was spent on the care of this complex patient more than 50% of the time was spent in counseling and care coordination. Patient would like to make his decision-maker in the case that he can't make decisions for himself. Patient reiterates that he would like to remain full code.
[2019-03-27] MEDS: methylPREDNISolone SOD SUCCI 125 MG/2 ML VIAL IV SCH ×2 (18:47→22:29)
[2019-03-27] MEDS: NICOTINE 21MG/24HR PATCH TRANSDERM SCH (18:48)
[2019-03-27] MEDS: METOPROLOL TARTRATE 50 MG TAB PO SCH (19:59)
[2019-03-27] MEDS: APIXABAN 5 MG TAB PO SCH (19:59)
[2019-03-28 05:59] LABS: Glucose,Whole Blood 181 mg/dL (75-99)
[2019-03-28] MEDS: methylPREDNISolone SOD SUCCI 125 MG/2 ML VIAL IV SCH ×4 (06:08→23:20)
[2019-03-28] MEDS: INSULIN ASPART (NovoLOG) 100 UNIT/ML VIAL SQ SCH ×4 (06:08→21:17)
[2019-03-28 07:08] LABS: Anisocytosis Slight; HCT 34.7 % (39.0-53.0); HGB 10.2 gm/dL (13.0-17.5); Hypochromasia Marked; MCH 21.7 pg (25.0-35.0); MCHC 29.4 g/dL (31.0-37.0); MCV 73.6 fL (80.0-100.0); Mean Platelet Volume 7.1; Microcytosis Slight; Platelet Count 336 k/uL (150-450); Poikilocytosis Slight; RBC 4.71 m/uL (4.30-5.90); RDW 16.5 % (11.5-15.5); WBC 3.7 k/uL (3.8-10.6)
[2019-03-28 07:34] LABS: Anion Gap 9 mmol/L; Blood Urea Nitrogen 17 mg/dL (9-20); Calcium 9.4 mg/dL (8.4-10.2); Carbon Dioxide 32 mmol/L (22-30); Chloride 92 mmol/L (98-107); Glucose 163 mg/dL (74-99); Potassium 4.1 mmol/L (3.5-5.1); Sodium 133 mmol/L (137-145)
[2019-03-28] MEDS: amLODIPine 5 MG TAB PO SCH (08:23)
[2019-03-28] MEDS: ATORVASTATIN 10 MG TAB PO SCH (08:23)
[2019-03-28] MEDS: METOPROLOL TARTRATE 50 MG TAB PO SCH ×2 (08:23→20:16)
[2019-03-28] MEDS: APIXABAN 5 MG TAB PO SCH ×2 (08:23→20:16)
[2019-03-28] MEDS: NICOTINE 21MG/24HR PATCH TRANSDERM SCH (08:24)
[2019-03-28] MEDS: FUROSEMIDE 10 MG/ML 4 ML VIAL IV SCH ×2 (08:24→20:16)
[2019-03-28] MEDS: IPRATROPIUM-ALBUTEROL 3 ML NEB INHALATION SCH ×4 (08:40→19:36)
[2019-03-28] MEDS ORDERED: ENOXAPARIN 40 MG/0.4 ML SYRINGE SQ SCH (09:00)
[2019-03-28] MEDS ORDERED: APIXABAN 5 MG TAB PO SCH (09:00)
[2019-03-28 11:10] VITALS: BMI 31.4
--- NOTE | 2019-03-28 11:36 | P.PN ---
Subjective Progress Note Date: 03/28/19 Principal diagnosis: CHF, COPD exacerbation Patient was seen and examined. No acute events overnight. Patient reports significant improvement in his breathing but continues to complain shortness of breath with exertion. Ambulated to the nurses station for coffee this morning. He denies any chest pain or palpitations. No fever or chills. No nausea or vomiting. Lost about 12 pounds overnight. Objective - Vital Signs Vital signs: Vital Signs Temp 97.4 F L 03/28/19 07:45 Pulse 80 03/28/19 11:16 Resp 20 03/28/19 11:16 BP 144/79 03/28/19 07:45 Pulse Ox 92 L 03/28/19 07:45 Intake & Output 03/27/19 03/28/19 03/28/19 18:59 06:59 18:59 Intake Total 100 220 Output Total 2190 1600 0 Balance -2089 -1599 220 Weight 102.27 kg 96.6 kg Intake: IV 20 Invasive Line 1 20 Oral 100 200 Output: Urine 2189 1600 0 Other: Voiding Method Urinal Urinal # Voids 3 1 - Exam General: [non toxic], [no distress], [appears at stated age] Derm: [warm], [dry] Head: [atraumatic], [normocephalic], [symmetric] Eyes: [EOMI], [no lid lag], [anicteric sclera] Mouth: [no lip lesion], [mucus membranes moist] Cardiovascular: [S1S2 reg], [no murmur], [positive posterior tibial pulse bilateral], Lungs: [Clear to auscultation bilaterally], [no rales or rhonchi] , [no accessory muscle use] Abdominal: [soft], [ nontender to palpation], [no guarding], [no appreciable organomegaly] Ext: [no gross muscle atrophy], [1+ lower extremity edema, left greater than right], [no contractures] Neuro: [ CN II-XI grossly intact], [no focal neuro deficits] Psych: [Alert], [oriented], [appropriate affect] - Labs CBC & Chem 7: 03/28/19 06:20 03/28/19 06:20 Labs: Abnormal Lab Results - Last 24 Hours (Table) 03/27/19 03/27/19 03/28/19 Range/Units 11:35 11:35 05:58 WBC (3.8-10.6) k/uL Hgb 10.1 L (13.0-17.5) gm/dL Hct 33.9 L (39.0-53.0) % MCV 74.2 L (80.0-100.0) fL MCH 22.0 L (25.0-35.0) pg MCHC 29.7 L (31.0-37.0) g/dL RDW 16.8 H (11.5-15.5) % Sodium 133 L (137-145) mmol/L Chloride 96 L (98-107) mmol/L Carbon Dioxide (22-30) mmol/L Glucose 106 H (74-99) mg/dL POC Glucose (mg/dL) 181 H (75-99) mg/dL Total Bilirubin 1.6 H (0.2-1.3) mg/dL AST 13 L (17-59) U/L 03/28/19 03/28/19 Range/Units 06:20 06:20 WBC 3.7 L (3.8-10.6) k/uL Hgb 10.2 L (13.0-17.5) gm/dL Hct 34.7 L (39.0-53.0) % MCV 73.6 L (80.0-100.0) fL MCH 21.7 L (25.0-35.0) pg MCHC 29.4 L (31.0-37.0) g/dL RDW 16.5 H (11.5-15.5) % Sodium 133 L (137-145) mmol/L Chloride 92 L (98-107) mmol/L Carbon Dioxide 32 H (22-30) mmol/L Glucose 163 H (74-99) mg/dL POC Glucose (mg/dL) (75-99) mg/dL Total Bilirubin (0.2-1.3) mg/dL AST (17-59) U/L Assessment and Plan Assessment: Assessment and Plan Shortness of breath likely secondary to mixed COPD and CHF exacerbation. COPD exacerbation CHF exacerbation Atrial fibrillation Hypertension Anemia Active smoker Obesity Patient is afebrile with no leukocytosis. Troponin is less than 0.0123, EKG showing sinus rhythm with prolonged QT, ACS ruled out. BNP 2980, Chest x-ray showing mild pulmonary vascular congestion and small right pleural effusion. Plan: Optimize COPD medications. Lasix IV for diuresis of CHF exacerbation. Follow cardiology consult. Follow pulmonology consult. Active smoker. Plan: DuoNeb 4 times a day scheduled and as needed for shortness of breath and wheezing. Continue Solu-Medrol IV. O2 per NC to maintain O2 saturation greater than 92%. Follow pulmonology consult. Plan: Diuresis with Lasix 40 mg IV twice a day. Continue metoprolol by mouth. Strict intake and output. Daily weights. Follow-up echocardiogram. Follow cardiology consultation. Plan: Continue metoprolol for rate control. Continue Eliquis for anticoagulation. Keep K > 4 and Mg > 2. Follow cardiology consultation. BP 144/79. Plan: Continue metoprolol and amlodipine. Monitor vitals, adjust medications as necessary. Hemoglobin 10.1 with microcytosis. Unknown etiology. Plan: Daily CBC. Follow iron studies. Transfuse if hemoglobin less than 7. Contributes to COPD. Plan: Nicotine patch. Quit. BMI 33.3. Plan: Structured weight loss program. Patient made of his CHF exacerbation, also COPD exacerbation. Diuresing well on Lasix IV. Echocardiogram read pending. Follow cardiology recommendations. Likely DC in 1-2 days.
[2019-03-28 11:41] LABS: Glucose,Whole Blood 138 mg/dL (75-99)
--- NOTE | 2019-03-28 12:37 | ECHOF ---
Referral Reason:cad MEASUREMENTS -------- HEIGHT: 177.8 cm WEIGHT: 102.1 kg BP: 157/83 RVIDd: 5.0 cm (< 3.3) IVSd: 1.1 cm (0.6 - 1.1) LVIDd: 5.1 cm (3.9 - 5.3) LVPWd: 1.1 cm (0.6 - 1.1) IVSs: 1.8 cm LVIDs: 3.0 cm LVPWs: 1.5 cm LAESV Index (A-L): 51.11 ml/m Ao Diam: 3.5 cm (2.0 - 3.7) AV Cusp: 2.1 cm (1.5 - 2.6) LA Diam: 4.3 cm (2.7 - 3.8) MV EXCURSION: 23.427 mm (> 18.000) MV EF SLOPE: 125 mm/s (70 - 150) EPSS: 0.4 cm MV E Cortez: 1.00 m/s MV DecT: 147 ms MV A Cort[place]: 0.24 m/s MV E/A Ratio: 4.19 RAP: 20.00 mmHg RVSP: 58.29 mmHg FINDINGS -------- Sinus rhythm. This was a technically adequate study. The left ventricular size is normal. Left ventricular wall thickness is normal. Overall left vent ricular systolic function is normal with, an EF between 55 - 60 %. The right ventricle is severely enlarged. LA is severely dilated >40 ml/m2 The right atrium is mildly enlarged. Interatrial and interventricular septum intact. Aortic valve is trileaflet and is mildly thickened. The mitral valve leaflets are mildly thickened. Mild mitral regurgitation is present. Moderate tricuspid regurgitation present. There is moderate to severe pulmonary hypertension. The right ventricular systolic pressure, as measured by Doppler, is 58.29mmHg. Trace/mild (physiologic) pulmonic regurgitation. The aortic root size is normal. The inferior vena cava is dilated with no significant inspiratory collapse which is consistent estima naresh right atrial pressure of >20 mmHg. There is no pericardial effusion. CONCLUSIONS -------- 1. Sinus rhythm. 2. This was a technically adequate study. 3. The left ventricular size is normal. 4. Left ventricular wall thickness is normal. 5. Overall left ventricular systolic function is normal with, an EF between 55 - 60 %. 6. The right ventricle is severely enlarged. 7. LA is severely dilated >40 ml/m2 8. The right atrium is mildly enlarged. 9. Interatrial and interventricular septum intact. 10. Aortic valve is trileaflet and is mildly thickened. 11. The mitral valve leaflets are mildly thickened. 12. Mild mitral regurgitation is present. 13. Moderate tricuspid regurgitation present. 14. There is moderate to severe pulmonary hypertension. 15. The right ventricular systolic pressure, as measured by Doppler, is 58.29mmHg. 16. Trace/mild (physiologic) pulmonic regurgitation. 17. The aortic root size is normal. 18. The inferior vena cava is dilated with no significant inspiratory collapse which is consistent es timated right atrial pressure of >20 mmHg. 19. There is no pericardial effusion. PCAS: Ev Castaneda RDCS
--- NOTE | 2019-03-28 12:50 | P.PN ---
Subjective Progress Note Date: 03/28/19 Is is a 73-year-old gentleman with history of chronic persistent atrial fibrillation, coronary artery disease, chronic tobacco use, hyperlipidemia, hypertension, who presented to the hospital with symptoms of worsening dyspnea. He had been seen in cardiology's office recently because of worsening peripheral edema and was initiated on diuretics. He did have some improvement in his edema, but continued to have progressively worsening breathing for this reason came to the hospital for further evaluation and treatment in the past his left ventricular systolic function was preserved, he underwent a cardiac catheterization in April 2018 and was found to have mild to moderate triple-vessel coronary artery disease with preserved systolic function. Patient had been seen yesterday in consultation by Dr. Guzman, and was initiated on IV Lasix. Patient diuresed well through the night last night. His weight is down 6 kg from yesterday, white blood cell count 3.7, hemoglobin 10.2, platelet count 336. Sodium 133, potassium 4.1, BUN 17 and creatinine 0.8. Echocardiogram with Doppler study revealed an ejection fraction of 55-60%. Moderate tricuspid regurgitation. Objective - Vital Signs Vital signs: Vital Signs Temp 97.4 F L 03/28/19 07:45 Pulse 79 03/28/19 11:52 Resp 20 03/28/19 11:16 BP 144/79 03/28/19 07:45 Pulse Ox 92 L 03/28/19 07:45 Intake & Output 03/27/19 03/28/19 03/28/19 18:59 06:59 18:59 Intake Total 100 220 Output Total 2190 1600 0 Balance -2089 -1599 220 Weight 102.27 kg 96.6 kg Intake: IV 20 Invasive Line 1 20 Oral 100 200 Output: Urine 2190 1600 0 Other: Voiding Method Urinal Urinal # Voids 3 1 - Exam PHYSICAL EXAMINATION: GENERAL: 73-year-old gentleman in no acute distress at the time of my examination HEENT: Head is atraumatic, normocephalic. Pupils equal, round. Sclera anicteric. Conjunctiva are clear. Mucous membranes of the mouth are moist. Neck is supple. There is no elevated jugular venous pressure. No carotid bruit is heard. HEART EXAMINATION: Heart S1 and S2 irregularly irregular a systolic murmur is heard CHEST EXAMINATION: Lungs are clear to auscultation and precussion. No chest wall tenderness is noted on palpation or with deep breathing. ABDOMEN: Soft, obese, nontender. Bowel sounds are heard. No organomegaly noted. EXTREMITIES: 2+ peripheral pulses with 2+ evidence of peripheral edema and no calf tenderness noted]. NEUROLOGIC [ptient is awake, alert and oriented X3. . - Labs CBC & Chem 7: 03/28/19 06:20 03/28/19 06:20 Labs: Abnormal Lab Results - Last 24 Hours (Table) 03/28/19 03/28/19 03/28/19 Range/Units 05:58 06:20 06:20 WBC 3.7 L (3.8-10.6) k/uL Hgb 10.2 L (13.0-17.5) gm/dL Hct 34.7 L (39.0-53.0) % MCV 73.6 L (80.0-100.0) fL MCH 21.7 L (25.0-35.0) pg MCHC 29.4 L (31.0-37.0) g/dL RDW 16.5 H (11.5-15.5) % Sodium 133 L (137-145) mmol/L Chloride 92 L (98-107) mmol/L Carbon Dioxide 32 H (22-30) mmol/L Glucose 163 H (74-99) mg/dL POC Glucose (mg/dL) 181 H (75-99) mg/dL 03/28/19 Range/Units 11:30 WBC (3.8-10.6) k/uL Hgb (13.0-17.5) gm/dL Hct (39.0-53.0) % MCV (80.0-100.0) fL MCH (25.0-35.0) pg MCHC (31.0-37.0) g/dL RDW (11.5-15.5) % Sodium (137-145) mmol/L Chloride (98-107) mmol/L Carbon Dioxide (22-30) mmol/L Glucose (74-99) mg/dL POC Glucose (mg/dL) 138 H (75-99) mg/dL Assessment and Plan Plan: Assessment and plan #1 diastolic congestive heart failure acute on chronic #2 COPD #3 chronic nicotine dependence #4 mild to moderate coronary artery disease #5 chronic persistent atrial fibrillation #6 anemia, microcytic #7 hypertension #8 hyperlipidemia Plan From cardiology's perspective, we will recommend to continue the patient on his current dose of IV Lasix, continue to monitor his intake and output along with daily weights and daily lytes BUN and creatinine. DNP note has been reviewed, I agree with a documented findings and plan of care. Patient was seen and examined.
[2019-03-28] MEDS ORDERED: ASPIRIN 325 MG TAB PO SCH (13:12)
[2019-03-28 17:13] LABS: Glucose,Whole Blood 194 mg/dL (75-99)
[2019-03-28] MEDS: SYMBICORT 160-4.5 MCG INHALER INHALATION SCH (19:36)
[2019-03-28 21:57] LABS: Glucose,Whole Blood 193 mg/dL (75-99)
--- NOTE | 2019-03-29 02:50 | CONS ---
CONSULTATION PULMONARY/CRITICAL CARE CONSULTATION: March 28, 2019 REASON FOR THE CONSULTATION: Shortness of breath. This is a 73-year-old male who was sent in for evaluation. The patient apparently presents with shortness of breath. The patient has a 60 pack-year history of tobacco use at more than 1 pack a day. He continues to smoke up until recently. The patient apparently was seen in the emergency room and was admitted with a diagnosis of shortness of breath secondary to chronic obstructive pulmonary disease exacerbation, but also CHF. The patient did develop significant swelling of the lower extremities. The patient did cough, but is not producing much or any phlegm. There is no fever or chills. There is no chest pain or chest discomfort. The patient was admitted to the hospital on March 27 through the emergency room. I was asked to see the patient for some underlying COPD, although he apparently has an appointment to see me sometime in early April. That was made in advance. He is feeling much better now. He states that he probably will be discharged home tomorrow. I told him never to smoke again and I also told him he needs to followup with me in the office. His primary care physician is Dr. Rivas in [place]. HOME MEDICATIONS: Include Mevacor, metoprolol, amlodipine, Eliquis, and Lasix. ALLERGIES: Denied. MEDICAL HISTORY: Included atrial fibrillation, hyperlipidemia, hypertension and DJD. He also has likely underlying COPD that he has not been tested. He also has DJD. SURGICAL HISTORY: Includes a heart catheterization, tonsillectomy, ORIF left elbow x3, left ganglion cyst, cardioversion, fractured right femur repair with plates and screws back in 2016. SOCIAL HISTORY: Positive for ongoing tobacco use. He has been smoking since the age of 14. He states he is now going to quit. He smokes about a pack a day but at times has smoked much more than that. He denies alcohol use or illicit drug use. FAMILY HISTORY: Positive for cardiac disease/myocardial infarction as well as cancer. REVIEW OF SYSTEMS: CONSTITUTIONAL: Negative. NEUROLOGIC: Negative. HEENT: Negative. CARDIOVASCULAR: Shortness of breath. PULMONARY: Shortness of breath, cough without phlegm. GI: Negative. : Negative. RHEUMATOLOGIC: Negative. IMMUNOLOGIC: Negative. ENDOCRINOLOGIC: Negative. DERMATOLOGIC: Negative. Current vital signs are reviewed. Temperature 98.2, heart rate 78, respiratory rate 16, blood pressure 144/77, mean 99, room air saturation 93%, on 2 L he was 100%. Appears in no acute distress. HEENT: Grossly unremarkable. Mucous membranes are moist. No oral lesions. NECK: Supple. Full range of motion. No adenopathy or thyromegaly. Neck veins are flat. CARDIOVASCULAR: Examination reveals regular rhythm and rate. Heart sounds are distant. S1, S2 normal. No distinct murmur noted. LUNGS: Reveal mostly clear but diminished breath sounds. No wheezes or rhonchi. Not much in the way of crackles either. ABDOMEN: Obese. Bowel sounds are heard. EXTREMITIES: Reveal some mild chronic venous stasis changes and some mild pitting edema. There is no evidence of cyanosis or clubbing. SKIN: Without rash. NEUROLOGIC: Brief but nonfocal. LABORATORY DATA: Includes a white count that was 3.7, hemoglobin 10.2, hematocrit 34.7, platelet count that is normal. Sodium 132, potassium 4.1, chloride 92, CO2 of 32, anion gap of 9. BUN and creatinine were 17 and 0.86. His initial troponins were negative x2. N terminal proBNP was 2980. Chest x-ray showed evidence of some fluid overload with a small right-sided pleural effusion. Medications are reviewed. Currently, he is on updrafts with DuoNeb, Solu-Medrol 60 mg q.6 and his usual cardiac medications. I will just add some Symbicort. He also was placed on some nicotine replacement. ASSESSMENT: 1. Shortness of breath, multifactorial, in part related to underlying congestive heart failure as well as chronic obstructive pulmonary disease exacerbation. 2. History of significant tobacco use for more than 60 years at more than 1 pack a day, likely the patient has likely the patient does have chronic obstructive pulmonary disease. 3. History of atrial fibrillation. 4. History of hyperlipidemia. 5. History of hypertension. 6. History of arthritis. 7. Previous history of cardioversion. 8. History of ongoing tobacco use with nicotine addiction. 9. Obesity. PLAN: The patient will have Symbicort added to the regimen. We will make sure that we see the patient in followup. The patient apparently already has an appointment to see me in early April. We will have him keep that appointment. We counseled him about the importance of smoking cessation. Overall though he is doing very well and feels much improved. Possible discharge tomorrow. MMODL / IJN: [id number] /
[2019-03-29 06:03] LABS: Glucose,Whole Blood 160 mg/dL (75-99)
[2019-03-29] MEDS: methylPREDNISolone SOD SUCCI 125 MG/2 ML VIAL IV SCH ×4 (06:31→23:21)
[2019-03-29] MEDS: INSULIN ASPART (NovoLOG) 100 UNIT/ML VIAL SQ SCH ×4 (06:32→21:15)
[2019-03-29] MEDS: SYMBICORT 160-4.5 MCG INHALER INHALATION SCH ×2 (07:49→20:57)
[2019-03-29] MEDS: IPRATROPIUM-ALBUTEROL 3 ML NEB INHALATION SCH ×4 (07:49→20:57)
[2019-03-29] MEDS: NICOTINE 21MG/24HR PATCH TRANSDERM SCH (09:04)
[2019-03-29] MEDS: FUROSEMIDE 20 MG TAB PO SCH ×2 (09:04→17:00)
[2019-03-29] MEDS: APIXABAN 5 MG TAB PO SCH ×2 (09:05→21:14)
[2019-03-29] MEDS: METOPROLOL TARTRATE 50 MG TAB PO SCH ×2 (09:05→21:14)
[2019-03-29] MEDS: amLODIPine 5 MG TAB PO SCH (09:05)
--- NOTE | 2019-03-29 10:58 | PN ---
PROGRESS NOTE Mr. Frank is a 73-year-old male who presented with symptoms of worsening dyspnea, has a history of chronic tobacco use, chronic persistent atrial fibrillation with mild coronary disease. He is feeling better this morning. His breathing is better. His cough has improved. He denies any symptoms of chest pain. He denies any dizziness or palpitation. He denies any nausea. He has been ambulating. He continues to be on amlodipine 5 mg daily, Eliquis 5 mg twice a day, Lipitor 10 mg 5 times a week, Lasix 40 mg twice a day and metoprolol tartrate 100 mg twice a day, in addition to nicotine patch and methyl prednisolone. PHYSICAL EXAMINATION: Blood pressure 124/60 with a heart rate in 90s. LUNGS: With decreased air exchange, no wheezes. HEART: Irregular regular S1, S2. No S3. No rub. ABDOMEN: Soft, obese, nontender. EXTREMITIES: 1+ edema. LAB DATA: Revealed BUN and creatinine 17 and 0.86, potassium 4.1. IMPRESSION: 1. Worsening dyspnea with a combination of exacerbation of chronic obstructive pulmonary disease and evidence of congestive heart failure with preserved systolic function. 2. Chronic persistent atrial fibrillation. 3. Chronic tobacco use. 4. Hyperlipidemia. 5. Hypertension. RECOMMENDATION: I will switch him to oral diuretics today, increase his level of activity. If remains stable, I am hopeful he will be able to be discharged home tomorrow. MMOBDULIAL / PETEN: [id number] /
[2019-03-29 11:16] LABS: Glucose,Whole Blood 210 mg/dL (75-99)
--- NOTE | 2019-03-29 12:23 | P.PN ---
Subjective Progress Note Date: 03/29/19 Principal diagnosis: COPD exacerbation Patient was seen and examined. No acute events overnight. Patient reports slight improvement in his breathing from yesterday but states that his oxygen saturation went down. He is currently on 2 L saturating low 90s. He does not have O2 at home. Transitioned from IV Lasix to by mouth. Objective - Vital Signs Vital signs: Vital Signs Temp 97.6 F 03/29/19 11:26 Pulse 90 03/29/19 11:44 Resp 20 03/29/19 11:26 BP 131/71 03/29/19 11:26 Pulse Ox 90 L 03/29/19 11:26 Intake & Output 03/28/19 03/29/19 03/29/19 18:59 06:59 18:59 Intake Total 1160 20 240 Output Total 1000 Balance 160 20 240 Weight 96.6 kg 95.8 kg Intake: IV 30 20 Invasive Line 1 30 20 Oral 1130 240 Output: Urine 1000 Other: Voiding Method Urinal Urinal # Voids 2 2 - Exam General: [non toxic], [no distress], [appears at stated age] Derm: [warm], [dry] Head: [atraumatic], [normocephalic], [symmetric] Eyes: [EOMI], [no lid lag], [anicteric sclera] Mouth: [no lip lesion], [mucus membranes moist] Cardiovascular: [S1S2 reg], [no murmur], [positive posterior tibial pulse bilateral], Lungs: [Clear to auscultation bilaterally], [no rales or rhonchi] , [no acce ssory muscle use] Abdominal: [soft], [ nontender to palpation], [no guarding], [no appreciable organomegaly] Ext: [no gross muscle atrophy], [1+ lower extremity edema, left greater than right], [no contractures] Neuro: [ CN II-XI grossly intact], [no focal neuro deficits] Psych: [Alert], [oriented], [appropriate affect] - Labs CBC & Chem 7: 03/28/19 06:20 03/28/19 06:20 Labs: Abnormal Lab Results - Last 24 Hours (Table) 03/28/19 03/28/19 03/29/19 Range/Units 16:58 20:42 06:01 POC Glucose (mg/dL) 194 H 193 H 160 H (75-99) mg/dL 03/29/19 Range/Units 11:14 POC Glucose (mg/dL) 210 H (75-99) mg/dL Assessment and Plan Assessment: Assessment and Plan Shortness of breath likely secondary to mixed COPD and CHF exacerbation. COPD exacerbation CHF exacerbation Atrial fibrillation Hypertension Anemia Active smoker Obesity Patient is afebrile with no leukocytosis. Troponin is less than 0.0123, EKG showing sinus rhythm with prolonged QT, ACS ruled out. BNP 2980, Chest x-ray showing mild pulmonary vascular congestion and small right pleural effusion. Plan: Optimize COPD medications. Lasix for diuresis of CHF exacerbation. Follow cardiology consult. Follow pulmonology consult. Active smoker. Plan: DuoNeb 4 times a day scheduled and as needed for shortness of breath and wheezing. Continue Solu-Medrol IV. O2 per NC to maintain O2 saturation greater than 92%. Follow pulmonology consult. Echocardiogram shows EF between 55-60% with moderate to severe pulmonary hypertension. Plan: Transition from Lasix IV to by mouth. Continue metoprolol by mouth. Strict intake and output. Daily weights. Follow cardiology consultation. Plan: Continue metoprolol for rate control. Continue Eliquis for anticoagulation. Keep K > 4 and Mg > 2. Follow cardiology consultation. BP 131/71. Plan: Continue metoprolol and amlodipine. Monitor vitals, adjust medications as necessary. Hemoglobin 10.1 with microcytosis. Unknown etiology. Plan: Daily CBC. Follow iron studies. Transfuse if hemoglobin less than 7. Contributes to COPD. Plan: Nicotine patch. Quit. BMI 31.2. Plan: Structured weight loss program. Patient made of his CHF exacerbation, also COPD exacerbation. Transition from Lasix IV to oral. Likely DC tomorrow as per cardiology recommendations. Need 6 minute walk test prior to discharge.
--- NOTE | 2019-03-29 13:04 | PN ---
PROGRESS NOTE DATE OF SERVICE: March 29, 2019. This is a patient we saw yesterday for shortness of breath. He is a pleasant 73-year- old male. We thought his shortness of breath was likely related primarily to CHF, but also to a component of COPD exacerbation. Anyway, the patient does have an appointment to see me in the office in early April. In addition to CHF and COPD, he has a history of chronic atrial fibrillation, hyperlipidemia, hypertension, arthritis, previous history of cardioversion, obesity, and history of ongoing tobacco use. He is feeling much better. He has been weaned off oxygen. He states he does not really have any shortness of breath. His saturations on room at rest is 94%. He denies any chest pain or chest pressure. He is not coughing or producing any phlegm. He is not wheezing. Current vital signs are reviewed. Temperature 97.6, heart rate 88, respiratory rate 20, room air saturation 94%. Blood pressure 131/71. Appears in no acute distress. HEENT examination is grossly unremarkable. Mucous membranes are moist. No oral lesions. NECK: Supple. Full range of motion. No adenopathy. Neck veins are flat. CARDIOVASCULAR: Examination reveals regular rhythm and rate. Heart sounds are distant. Heart rate 88 beats per minute. S1, S2 normal. No murmur noted. LUNGS: Reveal diminished breath sounds throughout. A few scattered rhonchi noted. There is no wheezes or crackles. Breath sounds are equal. ABDOMEN: Soft, but obese. Bowel sounds are heard. EXTREMITIES: Are intact. No cyanosis or clubbing. There is some mild edema. Some mild chronic venous stasis changes as well. SKIN: Without rash. NEUROLOGIC: Examination is brief but nonfocal. Labs are reviewed. No new labs today to speak of. Chest x-ray was reviewed yesterday. ASSESSMENT: 1. Shortness of breath, multifactorial, in part related to underlying congestive heart failure, but also chronic obstructive pulmonary disease exacerbation. 2. History of significant tobacco use for more than 60 years at more than 1 pack a day, likely causing the patient to have chronic obstructive pulmonary disease. 3. History of chronic atrial fibrillation. 4. History of hyperlipidemia. 5. History of hypertension. 6. History of arthritis. 7. Previous history of cardioversion. 8. History of ongoing tobacco use with nicotine addiction until this admission. 9. Obesity. 10.Rule out sleep apnea syndrome. PLAN: The patient will see me in the office. I would like to get him set up for sleep study. In addition, he will have complete pulmonary function test. Will reassess him at that time. Additional recommendations and suggestions are forthcoming. We counseled him about the importance of smoking cessation. He does understand. FRANK / PETEN: [phone] /
[2019-03-29 14:19] LABS: Iron Saturation 3.01 (15.00-50.00)
[2019-03-29 16:25] LABS: Glucose,Whole Blood 158 mg/dL (75-99)
[2019-03-29 20:45] LABS: Glucose,Whole Blood 162 mg/dL (75-99)
[2019-03-30 06:05] LABS: Glucose,Whole Blood 153 mg/dL (75-99)
[2019-03-30] MEDS: methylPREDNISolone SOD SUCCI 125 MG/2 ML VIAL IV SCH ×2 (06:33→11:59)
[2019-03-30] MEDS: INSULIN ASPART (NovoLOG) 100 UNIT/ML VIAL SQ SCH ×2 (06:33→11:59)
[2019-03-30] MEDS: IPRATROPIUM-ALBUTEROL 3 ML NEB INHALATION SCH ×2 (07:00→11:43)
[2019-03-30] MEDS: SYMBICORT 160-4.5 MCG INHALER INHALATION SCH (07:00)
[2019-03-30 08:34] LABS: Calcium 9.3 mg/dL (8.4-10.2); Potassium 4.4 mmol/L (3.5-5.1)
[2019-03-30 08:48] VITALS: BP 133/63; RESP 18; TEMP 97.6
[2019-03-30] MEDS: APIXABAN 5 MG TAB PO SCH (08:51)
[2019-03-30] MEDS: amLODIPine 5 MG TAB PO SCH (08:51)
[2019-03-30] MEDS: METOPROLOL TARTRATE 50 MG TAB PO SCH (08:51)
[2019-03-30] MEDS: FUROSEMIDE 20 MG TAB PO SCH (08:51)
[2019-03-30] MEDS: ATORVASTATIN 10 MG TAB PO SCH (08:51)
[2019-03-30] MEDS: NICOTINE 21MG/24HR PATCH TRANSDERM SCH (08:52)
--- NOTE | 2019-03-30 09:27 | PN ---
PROGRESS NOTE Mr. Frank is a 73-year-old male with a known history of chronic persistent atrial fibrillation, history of chronic tobacco use, who presented with symptoms of progressive dyspnea with evidence of congestive heart failure as well as exacerbation of COPD. He is feeling much better since yesterday. He is ambulating. He denies any dizziness. No palpitation. He denies any nausea. He denies any palpitations. He had an echocardiogram that showed a preserved systolic function with mild mitral and moderate tricuspid regurgitation with moderate pulmonary hypertension. He continues to be at this time on amlodipine 5 mg daily, Eliquis 5 mg twice a day, Lipitor 10 mg 6 times a week, furosemide 40 mg orally twice a day, methylprednisolone, metoprolol tartrate 100 mg twice a day. PHYSICAL EXAMINATION: Blood pressure 133/70 with the heart rate in the 80s. LUNGS: With decreased air exchange, no wheezes. HEART: Irregular, irregular. S1, S2. No S3. No rub with a systolic murmur. ABDOMEN: Soft, nontender. EXTREMITIES: Trace edema. LAB DATA: Lab data revealed BUN and creatinine 37 and 1.0. Potassium 4.4. IMPRESSION: 1. Symptoms of progressive dyspnea with a combination of congestive heart failure with preserved systolic function and exacerbation of chronic obstructive pulmonary disease. 2. Chronic persistent atrial fibrillation, anticoagulated. 3. Chronic obstructive lung disease with chronic tobacco use. 4. Hypertension. 5. Hyperlipidemia. RECOMMENDATION: From the cardiac standpoint, he is stable. We will continue present therapy. I would expect he should be able to be discharged home soon and followed as an outpatient. MMODL / IJN: [id number] /
--- NOTE | 2019-03-30 10:28 | P.DS ---
Providers Date of admission: 03/28/19 15:05 Expected date of discharge: 03/30/19 Attending physician: Sammie Dawson MD Consults: 03/27/19 13:10 Consult Physician Routine Consulting Provider: Ingrid Echevarria Consult Reason/Comments: copd Do you want consulting provider notified?: Yes Consult Physician Routine Consulting Provider: Vipul Guzman Consult Reason/Comments: chf Do you want consulting provider notified?: Yes Primary care physician: [facility] Course: 73 year old M with PMH of hypertension and hyperlipidemia presents the ED for shortness of breath. Patient reports dyspnea on exertion is in ongoing since December. Prior to December, patient reports his exercise tolerance to be at least 1 mile which is been progressively getting worse, can't walk more than 1/4 of a block this time. Patient also reports swelling from his toes to his knees that improve with lower extremity elevation. also reports that the patient has been fatigued and generalized weakness. Of note, patient reports going to [place] in December, drove both ways. Patient reports smoking one half packs per day for the past 60 years. He has no diagnosis of COPD or CHF. Patient reports seeing Dr. Guzman for atrial fibrillation, underwent cardioversion 2-3 years ago. Patient denies any headache, nausea, vomiting, fever, chest pain, palpitations, changes in urination or bowel habits. No changes in appetite or weight. Patient denies dizziness, numbness/weakness/tingling of the extremities. He does complain of dry cough. In the ED, vital signs are stable. CBC showed anemia with hemoglobin at 10.1, microcytosis. Correlation panel was negative. CMP showed a sodium of 133, chloride of 96, glucose of 106. Total bilirubin is 1.6, AST of 13. Troponin was less than 0.012, EKG showing sinus rhythm with prolonged QT. BNP was 2980 with chest x-ray showing signs of decompensated CHF. Patient is admitted for COPD and CHF exacerbation. Cardiology was consulted. Regarding his shortness of breath, this was thought to be secondary to mixed COPD and preserved CHF exacerbation. Patient is afebrile with no leukocytosis. Troponin was less than 0.0123 with EKG showing sinus rhythm and prolonged QT. Acute coronary syndrome was ruled out. BNP was 2980, chest x-ray showing mild pulmonary vascular congestion and small right pleural effusion. For his COPD, patient started on DuoNeb 4 times a day scheduled and as needed for shortness of breath and wheezing. He was started on Solu-Medrol and transitioned to prednisone on discharge. Echocardiogram was performed which showed an EF between 55-60% with moderate to severe pulmonary hypertension. Patient was initially diuresed with Lasix IV which was transitioned to oral on discharge. He was continued on metoprolol. Cardiology and pulmonology was involved in his case. Patient was seen and examined prior to discharge. No acute events overnight. Patient reports significant improvement in his breathing since admission. He denies any cough, shortness of breath or palpitations. No chest pain. Ambulating the hallways without any difficulties. General: [non toxic], [no distress], [appears at stated age] Derm: [warm], [dry] Head: [atraumatic], [normocephalic], [symmetric] Eyes: [EOMI], [no lid lag], [anicteric sclera] Mouth: [no lip lesion], [mucus membranes moist] Cardiovascular: [S1S2 reg], [no murmur], [positive posterior tibial pulse bilateral], Lungs: [Clear to auscultation bilaterally], [no rales or rhonchi] , [no accessory muscle use] Abdominal: [soft], [ nontender to palpation], [no guarding], [no appreciable organomegaly] Ext: [no gross muscle atrophy], [no lower extremity edema, left greater than right], [no contractures] Neuro: [ CN II-XI grossly intact], [no focal neuro deficits] Psych: [Alert], [oriented], [appropriate affect Assessment and Plan Shortness of breath likely secondary to mixed COPD and CHF exacerbation. Hypochloremic metabolic alkalosis COPD exacerbation CHF exacerbation Atrial fibrillation Hypertension Anemia Active smoker Obesity Patient is afebrile with no leukocytosis. Troponin is less than 0.0123, EKG showing sinus rhythm with prolonged QT, ACS ruled out. BNP 2980, Chest x-ray showing mild pulmonary vascular congestion and small right pleural effusion. Plan: Optimize COPD medications. Lasix for diuresis of CHF exacerbation. Follow cardiology consult. Follow pulmonology consult. Chloride 91 Bicarbonate 34. Likely secondary to Lasix. Plan: Repeat BMP in the outpatient setting. Active smoker. Plan: DuoNeb 4 times a day scheduled and as needed for shortness of breath and wheezing. Transitioned Solu-Medrol to prednisone. O2 per NC to maintain O2 saturation greater than 92%. Follow pulmonology consult. Echocardiogram shows EF between 55-60% with moderate to severe pulmonary hypertension. Plan: Transition from Lasix IV to by mouth. Continue metoprolol by mouth. Strict intake and output. Daily weights. Follow cardiology consultation. Plan: Continue metoprolol for rate control. Continue Eliquis for anticoagulation. Keep K > 4 and Mg > 2. Follow cardiology consultation. BP 133/63. Plan: Continue metoprolol and amlodipine. Monitor vitals, adjust medications as necessary. Hemoglobin 10.1 with microcytosis. Unknown etiology. Plan: Daily CBC. Follow iron studies. Transfuse if hemoglobin less than 7. Contributes to COPD. Plan: Nicotine patch. Quit. BMI 31.3. Plan: Structured weight loss program. Patient made of his CHF exacerbation, also COPD exacerbation. Transition from Lasix IV to oral. Obtain 6 minute walk test for possible discharge. Prescription sent for nebulizer machine. DC home on prednisone. Pertinent Studies: Chest x-ray, echocardiogram Patient Condition at Discharge: Stable Plan - Discharge Summary Discharge Rx Participant: No New Discharge Prescriptions: New predniSONE [Deltasone] 40 mg PO DAILY #4 tablet Ipratropium-Albuterol Nebulize [Duoneb 0.5 mg-3 mg/3 ml Soln] 3 ml INHALATION RT-QID #90 ampul.neb Apixaban [Eliquis] 5 mg PO BID tab Furosemide [Lasix] 40 mg PO BID@0900,1600 #60 tab Budesonide-Formot 160-4.5 Mcg [Symbicort 160-4.5 Mcg Inhaler] 2 puff INHALATION RT-BID #1 inhaler Continue Lovastatin [Mevacor] 20 mg PO MOWEFR amLODIPine [Norvasc] 5 mg PO DAILY Metoprolol Tartrate [Lopressor] 100 mg PO BID Discontinued Apixaban [Eliquis] 5 mg PO DAILY Furosemide [Lasix] 20 mg PO DAILY Discharge Medication List Lovastatin [Mevacor] 20 mg PO MOWEFR 04/29/15 [History] Metoprolol Tartrate [Lopressor] 100 mg PO BID 03/03/18 [History] amLODIPine [Norvasc] 5 mg PO DAILY 03/03/18 [History] Apixaban [Eliquis] 5 mg PO BID tab 03/30/19 [Rx] Budesonide-Formot 160-4.5 Mcg [Symbicort 160-4.5 Mcg Inhaler] 2 puff INHALATION RT-BID #1 inhaler 03/30/19 [Rx] Furosemide [Lasix] 40 mg PO BID@0900,1600 #60 tab 03/30/19 [Rx] Ipratropium-Albuterol Nebulize [Duoneb 0.5 mg-3 mg/3 ml Soln] 3 ml INHALATION RT-QID #90 ampul.neb 03/30/19 [Rx] predniSONE [Deltasone] 40 mg PO DAILY #4 tablet 03/30/19 [Rx] Follow up Appointment(s)/Referral(s): Summer Vickers MD [Primary Care Provider] - 04/10/19 9:45 am (Tuesday) Vipul Guzman MD [STAFF PHYSICIAN] - 1 Week Pranav Su DO [Doctor of Osteopathic Medicine] - 1 Week Ambulatory/Diagnostic Orders: Basic Metabolic Panel [LAB.AMB] Time Frame: 3 Days, Location: None Selected Activity/Diet/Wound Care/Special Instructions: Diet: Low-salt diet Follow-up with PCP within 1-2 days of discharge. Follow-up with cardiology within 1 week of discharge. Follow-up with pulmonology within 1 week of discharge. Physical medications as advised. Repeat BMP in 3 days. Follow-up results with PCP. Discharge Disposition: HOME SELF-CARE
--- NOTE | 2019-03-30 10:58 | P.PN ---
Subjective Progress Note Date: 03/30/19 Principal diagnosis: Shortness of breath, multifactorial, related to underlying congestive heart failure, and acute exacerbation of COPD On 03/30/2019 patient seen in follow-up on selective care unit, he is awake and alert, in no acute distress, he is on room air, he is been ambulating about the room, tolerating activity well, pulse ox is 93%, patient is afebrile, hemodynamically stable, no couplets a worsening shortness of breath or chest pain, patient is on oral Lasix, nebulized bronchodilator, IV steroids, clinically improved, and his echocardiogram showed preserved left ventricular systolic function with an EF of 55-60% mild mitral regurgitation, moderate tricuspid regurgitation, moderate to severe pulmonary hypertension with right- sided pressures of 58 mmHg. Lung sounds are clear, minimal crackles at the bases, patient overall is stable, he is been cleared for discharge by cardiology, and he is going home today. His weight is down by 5.9 kg since admission. Improved lower extremity edema. Objective - Vital Signs Vital signs: Vital Signs Temp 97.6 F 03/30/19 08:20 Pulse 95 03/30/19 08:20 Resp 18 03/30/19 08:20 BP 133/63 03/30/19 08:20 Pulse Ox 93 L 03/30/19 08:20 Intake & Output 03/29/19 03/30/19 03/30/19 18:59 06:59 18:59 Intake Total 1054 480 236 Output Total 300 Balance 754 480 236 Weight 96.1 kg Intake: Oral 1054 480 236 Output: Urine 300 Other: Voiding Method Urinal # Voids 2 - Constitutional General appearance: Present: average body habitus, cooperative, no acute distress - EENT Eyes: Present: PERRLA ENT: Present: NA/AT - Neck Carotids: bilateral: upstroke normal Thyroid: bilateral: normal size - Respiratory Respiratory: bilateral: diminished - Cardiovascular Rhythm: irregularly irregular Heart sounds: normal: S1, S2 - Peripheral edema leg Peripheral Edema: bilateral: Trace ankle Peripheral Edema: bilateral: Trace - Neurologic Neurologic: Present: CNII-XII intact - Musculoskeletal Musculoskeletal: Present: gait normal - Psychiatric Psychiatric: Present: A&O x's 3, appropriate affect, intact judgment & insight - Labs CBC & Chem 7: 03/28/19 06:20 03/30/19 06:32 Labs: Abnormal Lab Results - Last 24 Hours (Table) 03/29/19 03/29/19 03/29/19 Range/Units 05:15 11:14 16:24 Sodium (137-145) mmol/L Chloride (98-107) mmol/L Carbon Dioxide (22-30) mmol/L BUN (9-20) mg/dL Glucose (74-99) mg/dL POC Glucose (mg/dL) 210 H 158 H (75-99) mg/dL Iron 13 L (65-175) ug/dL Iron Saturation 3.01 L (15.00-50.00) Ferritin 13.2 L (22.0-322.0) ng/mL 03/29/19 03/30/19 03/30/19 Range/Units 20:44 06:04 06:32 Sodium 135 L (137-145) mmol/L Chloride 91 L (98-107) mmol/L Carbon Dioxide 34 H (22-30) mmol/L BUN 37 H (9-20) mg/dL Glucose 111 H (74-99) mg/dL POC Glucose (mg/dL) 162 H 153 H (75-99) mg/dL Iron (65-175) ug/dL Iron Saturation (15.00-50.00) Ferritin (22.0-322.0) ng/mL - Imaging and Cardiology Chest x-ray: report reviewed Assessment and Plan Plan: Assessment: 1. Dyspnea multifactorial, related to acute exacerbation of chronic congestive heart failure with diastolic dysfunction, and acute exacerbation of chronic objective pulmonary disease #2. Chronic and tobacco use for more than 60 years of more than pack a day #3. History of chronic atrial fibrillation on chronic anticoagulation with Eliquis, with history of cardioversion #4. Hypertension #5. Hyperlipidemia #6. arthritis #7. Obesity #8. Rule out obstructive sleep apnea syndrome Plan: She is doing well, breathing easier, vital signs stable, no complaints of shortness of breath or chest pain, has been diuresed, has been treated with IV steroids and nebulized treatments, from pulmonary perspective patient is stable for discharge home today. I performed a history & physical examination of the patient and discussed their management with my nurse practitioner, Juana Wright. I reviewed the nurse practitioner's note and agree with the documented findings and plan of care. Lung sounds are positive for limited crackles at the bases. The findings and the impression was discussed with the patient. I attest to the documentation by the nurse practitioner. Time with Patient: Less than 30
[2019-03-30 11:41] LABS: Glucose,Whole Blood 138 mg/dL (75-99)
[2019-03-30 11:56] VITALS: PULSE 82
== END 2019-03-30 12:55 | disposition home or self-care (01) | DRG 190 ==
LOC: EC 11:07 → 3SCARD 13:10 → OBSVTOIN 03-28 15:05
PROVIDERS: ADMIT Family Medicine; ATTEND Family Medicine
DX: J44.1 Chronic obstructive pulmonary disease with (acute) exacerbation (principal); I50.33 Acute on chronic diastolic (congestive) heart failure; E87.3 Alkalosis; I42.9 Cardiomyopathy, unspecified; I11.0 Hypertensive heart disease with heart failure; E66.9 Obesity, unspecified; E78.5 Hyperlipidemia, unspecified; I27.20 Pulmonary hypertension, unspecified; I48.2 Chronic atrial fibrillation; M19.90 Unspecified osteoarthritis, unspecified site; I25.10 Atherosclerotic heart disease of native coronary artery without angina pectoris; I08.1 Rheumatic disorders of both mitral and tricuspid valves; F17.200 Nicotine dependence, unspecified, uncomplicated; D50.9 Iron deficiency anemia, unspecified; I87.8 Other specified disorders of veins; T50.1X5A Adverse effect of loop [high-ceiling] diuretics, initial encounter; Z90.89 Acquired absence of other organs; Z98.890 Other specified postprocedural states; Z68.33 Body mass index [BMI] 33.0-33.9, adult; Z79.01 Long term (current) use of anticoagulants; Z79.899 Other long term (current) drug therapy; Z80.9 Family history of malignant neoplasm, unspecified; Z82.49 Family history of ischemic heart disease and other diseases of the circulatory system
CPT/HCPCS: 36415; 71046; 80048; 80053; 82728; 83540; 83550; 83735; 83880; 84484; 85025; 85027; 85610; 85730; 93005; 93306; 94640; 94760; 96374; 96375; 99285

== ENCOUNTER → 2019-05-10 | Outpatient (CLI) | payer MEDICARE, OTHER ==
[2019-05-10 11:07] LABS: African American GFR (CKD) 87.4 (60.0-200.0); Anion Gap 8.3 mmol/L (4.00-12.00); Calcium 9.5 mg/dL (8.7-10.3); Carbon Dioxide 26.7 mmol/L (21.6-31.8); LDL Cholesterol,Calculated 57.4 mg/dL (0.0-131.0); Potassium 5.2 mmol/L (3.5-5.5); Total Bilirubin 1.2 mg/dL (0.2-1.2); VLDL Calculation 10.6 mg/dL (5.00-40.00)
== END | disposition home or self-care (01) ==
LOC: LABWHC1 07:31
PROVIDERS: ATTEND Internal Medicine Interventional Cardiology
DX: E78.2 Mixed hyperlipidemia (principal)
CPT/HCPCS: 36415; 80053; 80061

== ENCOUNTER → 2019-06-05 | Outpatient (CLI) | payer MEDICARE, OTHER ==
--- NOTE | 2019-06-05 20:14 | CONS ---
CONSULTATION Referring physician is Dr. Guzman. This is a 73-year-old male patient coming in to be investigated for sleep apnea upon the request of Dr. Guzman. The patient is known to have COPD and chronic atrial fibrillation along with hypertension and coronary artery disease and hyperlipidemia. He is accompanied today by his . He has been noted to have snoring and occasional witnessed apneas. He goes to bed between 9-11 p.m. Wakes up between 5 and 6 a.m. in the morning. Averaging around 6-7 hours of sleep. He is currently retired from . He is still smoking half to 1 pack of cigarettes a day. His room air pulse ox is in the order of 92-93 percent. No major hypersomnia or sleepiness. [place] score is 0. No recent weight gain. He weighs around 216 pounds and his current BMI is at 33.8. No sleep paralysis. No hallucinations. No cataplexy. No naps during the day. No history of any motor vehicle accident because of feeling drowsy or sleepy. PAST MEDICAL HISTORY: Chronic atrial fibrillation, coronary artery disease, hypertension, hyperlipidemia and COPD. PAST SURGICAL HISTORY: Includes elbow surgeries,/ORIF with a cast in addition to a right femur surgery with ORIF. DRUG ALLERGIES: Not known. OUTPATIENT MEDICATION LIST: Includes Eliquis 5 mg twice a day, lovastatin 20 mg p.o. 3 times a week, Norvasc 5 mg p.o. daily, Lopressor 100 mg twice a day, Lasix 20 mg p.o. b.i.d. and iron pills. SOCIAL HISTORY: Chronic smoker between half to 1 pack of cigarettes a day. Smoking more than 60 years and drinks around 4 beers a day and 2-3 cups of coffee in the morning. No history of alcohol use. No history of any substance abuse. FAMILY HISTORY: Mother of metastatic breast cancer. Father of heart attack. No family history of obstructive sleep apnea. REVIEW OF SYSTEMS: Fourteen-point review of system was done and positive findings were all mentioned above in the history of present illness. No fever. No recent weight gain or weight loss. He has history of snoring. He is a mouth breather. No cough or sputum production, or hemoptysis. He has positive snoring and some exertional dyspnea and hypoxemia. He has no angina. No palpitation. He has chronic atrial fibrillation. No nausea vomiting or diarrhea. No heartburn. No hematuria. No dementia. No body aches or pains at this point in time. No falls. No wounds or ulceration of the skin. PHYSICAL EXAMINATION: BP is 149/83, pulse 84, respirations 16, temp 98.2. Saturation 93% on room air. Weight is 216, height 5 feet 7 inches. [place] score is at 0. BMI 33.8. Neck size is 17-1/4 of an inch. GENERAL APPEARANCE: Calm, comfortable. HEENT atraumatic, normocephalic. NECK: Supple. Short neck. Crowding of posterior pharynx is present with Mallampati class 4. No goiter or neck masses. LUNGS: Diminished breath sounds bilaterally. Scattered expiratory wheezes. HEART: Sounds are irregular rhythm. Normal S1, S2. No S3, S4. No murmurs. ABDOMEN: Obese, soft, nontender, no direct tenderness, rebound tenderness or guarding. EXTREMITIES: Trace edema. There is no cyanosis or clubbing. NEUROLOGIC: Alert and oriented x3. There are no focal neurological deficits. PSYCHIATRIC: Negative for anxiety or depression. SKIN is negative for any wounds or ulceration. IMPRESSION: 1. Snoring with occasional witnessed apneas. Consider sleep apnea. Never the less, the patient has no major hypersomnia or sleepiness. [place] score is down to 0. 2. Obesity, BMI 33.8. 3. Mallampati class IV with significant crowding of posterior pharynx. The patient wears dentures. 4. Chronic atrial fibrillation. 5. Coronary artery disease. 6. Hypertension. 7. Hyperlipidemia. 8. Obesity, BMI 33.8. 9. Chronic obstructive pulmonary disease. 10.Chronic hypoxic respiratory failure with a pulse ox on room air is around 93%. PLAN: 1. Encourage weight loss. 2. Smoking cessation counseling was done. 3. Cut down alcohol drinking especially at nighttime. 4. Implement good sleep hygiene measures. 5. Proceed with a home sleep study to screen the patient for obstructive sleep apnea and treat accordingly. MMODL / IJN: [id number] /
== END | disposition home or self-care (01) ==
LOC: SLEEP 13:29
PROVIDERS: ATTEND Internal Medicine Critical Care Medicine
DX: J96.11 Chronic respiratory failure with hypoxia (principal); E66.9 Obesity, unspecified; I48.2 Chronic atrial fibrillation; I25.10 Atherosclerotic heart disease of native coronary artery without angina pectoris; I10 Essential (primary) hypertension; E78.5 Hyperlipidemia, unspecified; J44.9 Chronic obstructive pulmonary disease, unspecified; F17.210 Nicotine dependence, cigarettes, uncomplicated; Z68.33 Body mass index [BMI] 33.0-33.9, adult; Z79.01 Long term (current) use of anticoagulants; Z79.899 Other long term (current) drug therapy
CPT/HCPCS: 99211

== ENCOUNTER → 2019-08-08 | Outpatient (CLI) | payer MEDICARE, OTHER | END | disposition home or self-care (01) | LOC: CPPFTMAIN 07:20 | PROVIDERS: ATTEND Internal Medicine Critical Care Medicine | DX: J44.9 Chronic obstructive pulmonary disease, unspecified (principal); J98.8 Other specified respiratory disorders | CPT/HCPCS: 94060; 94726; 94729 ==

== ENCOUNTER → 2019-09-10 | Outpatient (CLI) | payer MEDICARE, OTHER ==
[2019-09-10 12:09] LABS: Chol/HDL Ratio 2.66; LDL Cholesterol,Calculated 69.4 mg/dL (0.0-131.0); VLDL Calculation 13.6 mg/dL (5.00-40.00)
== END | disposition home or self-care (01) ==
LOC: LABWHC1 07:44
PROVIDERS: ATTEND Nurse Practitioner Adult Health
DX: E78.2 Mixed hyperlipidemia (principal)
CPT/HCPCS: 36415; 80061; 84450; 84460

== ENCOUNTER → 2020-01-21 | Outpatient (CLI) | payer MEDICARE, OTHER ==
[2020-01-21 08:49] LABS: HCT 53.1 % (39.0-53.0); HGB 17.4 gm/dL (13.0-17.5); MCH 32.7 pg (25.0-35.0); MCHC 32.7 g/dL (31.0-37.0); MCV 100.1 fL (80.0-100.0); Mean Platelet Volume 7.5; Platelet Count 254 k/uL (150-450); RBC 5.31 m/uL (4.30-5.90); RDW 13.4 % (11.5-15.5); WBC 7.4 k/uL (3.8-10.6)
[2020-01-21 16:17] LABS: African American GFR (CKD) 103.4 (60.0-200.0); Albumin 4.1 g/dL (3.80-4.90); Albumin/Globulin Ratio 1.78 (1.60-3.17); Anion Gap 5.6 mmol/L (4.00-12.00); BUN/Creat Ratio 16.25 Ratio (12.00-20.00); Calcium 9.3 mg/dL (8.7-10.3); Carbon Dioxide 29.4 mmol/L (21.6-31.8); Globulin 2.3 g/dL (1.6-3.3); Non-African American GFR(CKD) 89.2 (60.0-200.0); Potassium 5.3 mmol/L (3.5-5.5); Total Bilirubin 1.6 mg/dL (0.3-1.2); Total Protein 6.4 g/dL (6.2-8.2)
== END | disposition home or self-care (01) ==
LOC: LABWHC1 08:03
PROVIDERS: ATTEND Family Medicine
DX: I48.91 Unspecified atrial fibrillation (principal); D64.9 Anemia, unspecified
CPT/HCPCS: 36415; 80053; 85027

== ENCOUNTER 2020-06-23 13:52 | Observation (INO) | payer MEDICARE, OTHER ==
[2020-06-23 14:27] LABS: Basophils # (A) 0.1 k/uL (0-0.2); Basophils % (A) 1 %; Eosinophils # (A) 0.4 k/uL (0-0.7); Eosinophils % (A) 4 %; HCT 52.9 % (39.0-53.0); HGB 17.4 gm/dL (13.0-17.5); Lymphocytes # (A) 1.2 k/uL (1.0-4.8); Lymphocytes % (A) 11 %; MCH 32.9 pg (25.0-35.0); MCHC 32.8 g/dL (31.0-37.0); MCV 100.2 fL (80.0-100.0); Mean Platelet Volume 7.4; Monocytes # (A) 1.1 k/uL (0-1.0); Monocytes % (A) 10 %; Neutrophils # (A) 7.9 k/uL (1.3-7.7); Neutrophils % (A) 73 %; Platelet Count 306 k/uL (150-450); RBC 5.28 m/uL (4.30-5.90); RDW 13.1 % (11.5-15.5); WBC 10.8 k/uL (3.8-10.6)
--- NOTE | 2020-06-23 14:49 | ED ---
General Adult HPI - General Chief complaint: Recheck/Abnormal Lab/Rx Stated complaint: Leg/Back Pain Time Seen by Provider: 06/23/20 13:58 Source: patient, EMS, RN notes reviewed, old records reviewed Mode of arrival: EMS Limitations: no limitations - History of Present Illness Initial comments: 74-year-old male presenting with flank pain, leg pain, and bruising. Patient developed right lower back pain and flank pain radiating into his leg several we eks ago, approximately 4 days ago the patient noted a developing bruise on his inner thigh and scrotum on the right. He denies trauma. He states that he had been prescribed a steroid Dosepak by his primary care physician for his pain which was thought to be attributed to sciatica. He states that his flank pain and pain rating into his leg have not improved. He noticed this developing bruise approximate 4 days prior and has had persistent pain. He denies any pain distal to the knee. He has history of both tobacco use and he is a daily drinker. Patient denies any trauma but states that he's having difficulty ambulating secondary to the pain. - Related Data Home Medications Medication Instructions Recorded Confirmed Lovastatin [Mevacor] 20 mg PO MOWEFR 04/29/15 03/27/19 Metoprolol Tartrate [Lopressor] 100 mg PO BID 03/03/18 03/27/19 amLODIPine [Norvasc] 5 mg PO DAILY 03/03/18 03/27/19 Previous Rx's Medication Instructions Recorded Apixaban [Eliquis] 5 mg PO BID tab 03/30/19 Budesonide-Formot 160-4.5 Mcg 2 puff INHALATION RT-BID #1 inhaler 03/30/19 [Symbicort 160-4.5 Mcg Inhaler] Furosemide [Lasix] 40 mg PO BID@0900,1600 #60 tab 03/30/19 Ipratropium-Albuterol Nebulize 3 ml INHALATION RT-QID #90 03/30/19 [Duoneb 0.5 mg-3 mg/3 ml Soln] ampul.neb predniSONE [Deltasone] 40 mg PO DAILY #4 tablet 03/30/19 Allergies Allergy/AdvReac Type Severity Reaction Status Date / Time No Known Allergies Allergy Verified 06/23/20 14:03 Review of Systems ROS Statement: Those systems with pertinent positive or pertinent negative responses have been documented in the HPI. ROS Other: All systems not noted in ROS Statement are negative. Past Medical History Past Medical History: Atrial Fibrillation, Hyperlipidemia, Hypertension, Osteoarthritis (OA) Additional Past Medical History / Comment(s): Afib, nonischemic cardiomyopathy per past medical record but pt states he is not aware of this, past arthritis R ankle, colon polyps-benign, hiatal hernis, gastritis, duodenitis, recent bilateral ankle edema-started on lasix History of Any Multi-Drug Resistant Organisms: None Reported Past Surgical History: Heart Catheterization, Orthopedic Surgery, Tonsillectomy Additional Past Surgical History / Comment(s): 01/2019 EGD with bx and colonoscopy with bx, ORIF LEFT ELBOW X 3, LEFT GANGLION CYST. , CARDIOVERSION, fx- rt femur repair with plates and screws 03/29 Past Anesthesia/Blood Transfusion Reactions: No Reported Reaction Past Psychological History: No Psychological Hx Reported Smoking Status: Current every day smoker Past Alcohol Use History: Daily Past Drug Use History: None Reported - Past Family History Daughter(s) Family Medical History: Neurologic Disorder Additional Family Medical History / Comment(s): Daughter is . Father Family Medical History: Myocardial Infarction (SC) Additional Family Medical History / Comment(s): Father of a SC at the age of 60yrs. Mother Family Medical History: Cancer Additional Family Medical History / Comment(s): Mother of cancer at the age of 81 yrs. Pt cannot recall type of cancer. Sister(s) Family Medical History: Myocardial Infarction (SC) Additional Family Medical History / Comment(s): Sister of a SC at the age of 48yrs. General Exam Limitations: no limitations General appearance: alert, in no apparent distress Head exam: Present: atraumatic, normocephalic Eye exam: Present: normal appearance, PERRL, EOMI ENT exam: Present: normal exam Neck exam: Present: normal inspection. Absent: tenderness, meningismus Respiratory exam: Present: normal lung sounds bilaterally. Absent: respiratory distress, wheezes Cardiovascular Exam: Present: regular rate, irregular rhythm GI/Abdominal exam: Present: soft. Absent: distended, tenderness, guarding exam: Present: other (Scrotal ecchymosis, no tenderness, no induration, fluctuance no crepitus) Extremities exam: Present: other (Large hematoma and ecchymosis right groin, pedal pulses are present bilaterally. Compartments are soft, no tenderness. Range of motion of the right hip and knee are within normal limits.) Back exam: Present: CVA tenderness (R), paraspinal tenderness Neurological exam: Present: alert, oriented X3, CN II-XII intact. Absent: motor sensory deficit Psychiatric exam: Present: normal affect, normal mood Skin exam: Present: warm, dry, intact, other (Large ecchymosis as above) Course Vital Signs 06/23/20 06/23/20 06/23/20 13:59 14:56 15:20 Temperature 97.3 F L Pulse Rate 79 89 84 Respiratory 18 18 18 Rate Blood Pressure 167/105 148/91 144/86 O2 Sat by Pulse 98 96 96 Oximetry 06/23/20 06/23/20 06/23/20 15:30 16:00 18:03 Temperature Pulse Rate 82 89 84 Respiratory 16 16 16 Rate Blood Pressure 140/80 136/92 144/100 O2 Sat by Pulse 95 97 96 Oximetry EKG Findings - EKG Comments: EKG Findings:: Atrial fibrillation, controlled rate of 81, QRS duration 96, QTC [address] segment elevation. Medical Decision Making - Medical Decision Making 74-year-old male with worsening flank pain, low back pain, and right leg pain. Patient has normal pulse exam. He has a large hematoma and ecchymosis on the medial thigh as well as scrotum. There is no crepitus, no induration, no fluctuance. Patient has stable hemoglobin. He has a normal lactic acid. He has an elevated bilirubin. He has a normal CK. CT shows arterial flow with no active bleeding into the bilateral lower extremities. No aneurysm or dissection. He does have some stenosis in the left superficial femoral artery as well as diffuse muscular edema suggestive of a myositis. He does have a normal CK. Given his difficulty in breathing will admit. Case is been discussed with Dr. Johnson who accepts admission. - Lab Data Result diagrams: 06/23/20 14:14 06/23/20 14:50 Lab Results 06/23/20 06/23/20 06/23/20 Range/Units 14:14 14:14 14:14 WBC 10.8 H (3.8-10.6) k/uL RBC 5.28 (4.30-5.90) m/uL Hgb 17.4 (13.0-17.5) gm/dL Hct 52.9 (39.0-53.0) % MCV 100.2 H (80.0-100.0) fL MCH 32.9 (25.0-35.0) pg MCHC 32.8 (31.0-37.0) g/dL RDW 13.1 (11.5-15.5) % Plt Count 306 (150-450) k/uL Neutrophils % 73 % Lymphocytes % 11 % Monocytes % 10 % Eosinophils % 4 % Basophils % 1 % Neutrophils # 7.9 H (1.3-7.7) k/uL Lymphocytes # 1.2 (1.0-4.8) k/uL Monocytes # 1.1 H (0-1.0) k/uL Eosinophils # 0.4 (0-0.7) k/uL Basophils # 0.1 (0-0.2) k/uL PT 11.1 (9.0-12.0) sec INR 1.1 (<1.2) APTT 25.3 (22.0-30.0) sec Sodium (137-145) mmol/L Potassium (3.5-5.1) mmol/L Chloride (98-107) mmol/L Carbon Dioxide (22-30) mmol/L Anion Gap mmol/L BUN (9-20) mg/dL Creatinine (0.66-1.25) mg/dL Est GFR (CKD-EPI)AfAm (>60 ml/min/1.73 sqM) Est GFR (CKD-EPI)NonAf (>60 ml/min/1.73 sqM) Glucose (74-99) mg/dL Plasma Lactic Acid Eric 1.2 (0.7-2.0) mmol/L Calcium (8.4-10.2) mg/dL Total Bilirubin (0.2-1.3) mg/dL AST (17-59) U/L ALT (4-49) U/L Alkaline Phosphatase (38-126) U/L Creatine Kinase (55-170) U/L CK-MB (CK-2) (0.0-2.4) ng/mL Total Protein (6.3-8.2) g/dL Albumin (3.5-5.0) g/dL Amylase (30-110) U/L Lipase (23-300) U/L Urine Color Urine Appearance (Clear) Urine pH (5.0-8.0) Ur Specific [place] (1.001-1.035) Urine Protein (Negative) Urine Glucose (UA) (Negative) Urine Ketones (Negative) Urine Blood (Negative) Urine Nitrite (Negative) Urine Bilirubin (Negative) Urine Urobilinogen (<2.0) mg/dL Ur Leukocyte Esterase (Negative) Urine RBC (0-5) /hpf Urine WBC (0-5) /hpf Urine Mucus (None) /hpf 06/23/20 06/23/20 06/23/20 Range/Units 14:50 14:50 14:50 WBC (3.8-10.6) k/uL RBC (4.30-5.90) m/uL Hgb (13.0-17.5) gm/dL Hct (39.0-53.0) % MCV (80.0-100.0) fL MCH (25.0-35.0) pg MCHC (31.0-37.0) g/dL RDW (11.5-15.5) % Plt Count (150-450) k/uL Neutrophils % % Lymphocytes % % Monocytes % % Eosinophils % % Basophils % % Neutrophils # (1.3-7.7) k/uL Lymphocytes # (1.0-4.8) k/uL Monocytes # (0-1.0) k/uL Eosinophils # (0-0.7) k/uL Basophils # (0-0.2) k/uL PT (9.0-12.0) sec INR (<1.2) APTT (22.0-30.0) sec Sodium 133 L (137-145) mmol/L Potassium 4.8 (3.5-5.1) mmol/L Chloride 97 L (98-107) mmol/L Carbon Dioxide 29 (22-30) mmol/L Anion Gap 7 mmol/L BUN 19 (9-20) mg/dL Creatinine 0.64 L (0.66-1.25) mg/dL Est GFR (CKD-EPI)AfAm >90 (>60 ml/min/1.73 sqM) Est GFR (CKD-EPI)NonAf >90 (>60 ml/min/1.73 sqM) Glucose 104 H (74-99) mg/dL Plasma Lactic Acid Eric (0.7-2.0) mmol/L Calcium 9.1 (8.4-10.2) mg/dL Total Bilirubin 3.5 H (0.2-1.3) mg/dL AST 24 (17-59) U/L ALT 17 (4-49) U/L Alkaline Phosphatase 68 (38-126) U/L Creatine Kinase 27 L (55-170) U/L CK-MB (CK-2) 1.2 (0.0-2.4) ng/mL Total Protein 6.1 L (6.3-8.2) g/dL Albumin 3.6 (3.5-5.0) g/dL Amylase 42 (30-110) U/L Lipase 90 (23-300) U/L Urine Color Urine Appearance (Clear) Urine pH (5.0-8.0) Ur Specific [place] (1.001-1.035) Urine Protein (Negative) Urine Glucose (UA) (Negative) Urine Ketones (Negative) Urine Blood (Negative) Urine Nitrite (Negative) Urine Bilirubin (Negative) Urine Urobilinogen (<2.0) mg/dL Ur Leukocyte Esterase (Negative) Urine RBC (0-5) /hpf Urine WBC (0-5) /hpf Urine Mucus (None) /hpf 06/23/20 Range/Units 15:56 WBC (3.8-10.6) k/uL RBC (4.30-5.90) m/uL Hgb (13.0-17.5) gm/dL Hct (39.0-53.0) % MCV (80.0-100.0) fL MCH (25.0-35.0) pg MCHC (31.0-37.0) g/dL RDW (11.5-15.5) % Plt Count (150-450) k/uL Neutrophils % % Lymphocytes % % Monocytes % % Eosinophils % % Basophils % % Neutrophils # (1.3-7.7) k/uL Lymphocytes # (1.0-4.8) k/uL Monocytes # (0-1.0) k/uL Eosinophils # (0-0.7) k/uL Basophils # (0-0.2) k/uL PT (9.0-12.0) sec INR (<1.2) APTT (22.0-30.0) sec Sodium (137-145) mmol/L Potassium (3.5-5.1) mmol/L Chloride (98-107) mmol/L Carbon Dioxide (22-30) mmol/L Anion Gap mmol/L BUN (9-20) mg/dL Creatinine (0.66-1.25) mg/dL Est GFR (CKD-EPI)AfAm (>60 ml/min/1.73 sqM) Est GFR (CKD-EPI)NonAf (>60 ml/min/1.73 sqM) Glucose (74-99) mg/dL Plasma Lactic Acid Eric (0.7-2.0) mmol/L Calcium (8.4-10.2) mg/dL Total Bilirubin (0.2-1.3) mg/dL AST (17-59) U/L ALT (4-49) U/L Alkaline Phosphatase (38-126) U/L Creatine Kinase (55-170) U/L CK-MB (CK-2) (0.0-2.4) ng/mL Total Protein (6.3-8.2) g/dL Albumin (3.5-5.0) g/dL Amylase (30-110) U/L Lipase (23-300) U/L Urine Color Yellow Urine Appearance Cloudy (Clear) Urine pH 7.0 (5.0-8.0) Ur Specific [place] 1.032 (1.001-1.035) Urine Protein Negative (Negative) Urine Glucose (UA) Negative (Negative) Urine Ketones Negative (Negative) Urine Blood Negative (Negative) Urine Nitrite Negative (Negative) Urine Bilirubin Negative (Negative) Urine Urobilinogen 8.0 (<2.0) mg/dL Ur Leukocyte Esterase Small H (Negative) Urine RBC 1 (0-5) /hpf Urine WBC 7 H (0-5) /hpf Urine Mucus Rare H (None) /hpf Disposition Clinical Impression: Hematoma of right thigh, Myositis Disposition: ADMITTED IP TO THIS [facility] Condition: Stable Is patient prescribed a controlled substance at d/c from ED?: No Referrals: Summer Vickers MD [Primary Care Provider] - 1-2 days Decision to Admit Reason: Admit from EC Decision Date: 06/23/20 Decision Time: 18:33
[2020-06-23 14:59] LABS: INR 1.1 (<1.2); Partial Thromboplastin Time 25.3 sec (22.0-30.0); Prothrombin Time 11.1 sec (9.0-12.0)
[2020-06-23 15:18] LABS: ALT 17 U/L (4-49); AST 24 U/L (17-59); African American GFR (CKD) >90 (>60 ml/min/1.73 sqM); Albumin 3.6 g/dL (3.5-5.0); Alkaline Phosphatase 68 U/L (38-126); Amylase 42 U/L (30-110); Anion Gap 7 mmol/L; Blood Urea Nitrogen 19 mg/dL (9-20); Calcium 9.1 mg/dL (8.4-10.2); Carbon Dioxide 29 mmol/L (22-30); Chloride 97 mmol/L (98-107); Glucose 104 mg/dL (74-99); Lipase 90 U/L (23-300); Non-African American GFR(CKD) >90 (>60 ml/min/1.73 sqM); Potassium 4.8 mmol/L (3.5-5.1); Sodium 133 mmol/L (137-145); Total Bilirubin 3.5 mg/dL (0.2-1.3); Total Protein 6.1 g/dL (6.3-8.2)
[2020-06-23 16:21] LABS: Appearance,Urine Cloudy (Clear); Bilirubin,Urine Negative (Negative); Blood,Urine Negative (Negative); Color,Urine Yellow; Glucose,Urine (UA) Negative (Negative); Ketones,Urine Negative (Negative); Leukocyte Esterase,Urine Small (Negative); Mucus,Urine Rare /hpf; Nitrite,Urine Negative (Negative); Protein,Urine Negative (Negative); RBC,Urine 1 /hpf (0-5); Specific Gravity,Urine 1.032 (1.001-1.035); WBC,Urine 7 /hpf (0-5)
--- NOTE | 2020-06-23 16:39 | CT ---
EXAM: CT ANGIOGRAPHY OF THE ABDOMEN, PELVIS AND LOWER EXTREMITIES DATE OF SERVICE: 06/23/2020 INDICATION: Abdominal pain, flank pain, ecchymosis of left leg. No known injury. COMPARISON: None. TECHNIQUE: Multiple thin slice sub-millimeter images were obtained through the abdomen, pelvis, and l ower extremities after administration of contrast. Patient was given Isovue 370, 100 cc intravenousl y. 3-D reconstructed images were generated on a separate workstation. Maximum intensity projection i mages were obtained and reviewed. FINDINGS: CTA Abdomen and pelvis: Precontrast imaging demonstrates no evidence of intramural hematoma or retroperitoneal hematoma. The abdominal aorta does not demonstrate aneurysmal dilatation. Calcified atherosclerotic disease of the abdominal aorta by iliac vasculature. The origins of the superior mesenteric artery, inferior m esenteric artery, and celiac axis are patent. The bilateral single renal arteries are patent, with a pproximately 50% narrowing of the right renal artery ostium. The iliac vessels are patent without estefany dence of aneurysm or occlusion. Lower extremities: Multifocal narrowing of the left superficial femoral artery of greater than 50%. Multiple foci of atherosclerotic calcific plaquing are seen involving both superficial femoral arteri es. The bilateral popliteal arteries are not opacified, nor are the infrapopliteal arteries of the bi lateral lower extremities. 3-dimensional and MIP images are consistent with the above findings. VISCERA: Cardiomegaly. Calcified coronary artery disease. No pericardial effusion. Mild bibasilar atelectasis. Heterogenous liver and spleen likely due to early arterial enhancement. Cholelithiasis. No intrahepat ic or extra hepatic biliary ductal dilatation. Pancreas normal. No hydronephrosis. 3.1 cm simple left renal cyst. There is thickened left adrenal gland. Right adrenal gland is normal. No evidence of bowel obstruction. Colonic diverticulosis. No acute diverticulitis. No pneumoperitoneu m or free fluid. Urinary bladder normal. There is mild edema of the inferior scrotum. No lymphadenopa thy. MUSCULOSKELETAL: Degenerative changes of the spine and hips. Old right femoral fracture deformity wit h intramedullary nail and femoral head fixation screw. There is haziness and edema involving the musc les of the bilateral buttocks, right anterior and posterior thigh, left posterior thigh, and posterio r compartments of the bilateral lower legs. The right posterior thigh demonstrates anasarca and poste rior skin thickening. IMPRESSIONS: 1. CTA runoff examination with contrast opacification to the level of the distal superficial femoral arteries. Popliteal and infrapopliteal runoff is not evaluated. 2. No evidence of abdominal aortic aneurysm, dissection, or rupture. 3. Significant stenosis of the right renal artery ostium. 4. Multifocal significant stenosis of the left superficial femoral artery. 5. Hazy, edematous appearance involving several muscle groups including the bilateral buttocks, the a nterior and posterior compartments of the right thigh, the posterior compartment of the left thigh, a nd the posterior compartments of the bilateral lower extremities. Differential includes myositis. The re is also edema and skin thickening of the posterior right thigh, which may represent cellulitis. Dr. Gay Doll discussed findings with Dr. Pranav Mireles via the phone on 06/23/2020 at 4:25 PM, and results were acknowledged.
[2020-06-23] MEDS ORDERED: HYDROmorphone 1 MG/ML 1 ML SYRINGE IVP STA (17:23)
[2020-06-23] MEDS ORDERED: ACETAMINOPHEN TAB 325 MG TAB PO PRN (18:27)
[2020-06-23] MEDS ORDERED: NALOXONE 0.4 MG/ML 1 ML VIAL IV PRN (18:27)
[2020-06-23] MEDS ORDERED: HYDROmorphone 0.5 MG/0.5 ML SYRINGE IVP PRN (18:27)
[2020-06-23] MEDS: SODIUM CHLORIDE 0.9% 1,000 ML IV SCH (20:42)
[2020-06-23] MEDS ORDERED: cloNIDine HCL 0.2 MG TAB PO PRN (23:39)
[2020-06-23] MEDS ORDERED: CYCLOBENZAPRINE 10 MG TAB PO SCH (23:45)
[2020-06-24] MEDS: METOPROLOL TARTRATE 50 MG TAB PO SCH ×2 (00:01→08:18)
--- NOTE | 2020-06-24 00:02 | P.HPIM ---
History of Present Illness H&P Date: 06/23/20 Chief Complaint: flank and low back pain radiating to the leg 74 year old male with hypertension , P afib, hyperlipidemia patient comes in with 4 days history of enlarging echymosis and bruising over his right inner thing and scrotum. he denies any associated injury trauma or fall. he is on eliquis for Afib, and has recently finished a five day course of medrol dose pack 2 days ago, he adds, that for the past few weeks he has been experiencing right flank pain and low back pain that radiates to his right thigh, denies any focal neuro deficits associated, however pain today was limiting his ability to stand up or walk for which he decided to come to the hospital . he saw his PCP for it, who has prescribed him 5 day course of medrole dose pack for suspected acute sciatica causing the pain that he just finished 2 days ago . he otherwise, denies any other bleeding, denies any injuries, denies hematuria or bloody bowel movement. he denies any chest pain or trouble breathing, denies fever, chills. or any other rashes. he admits to daily drinking of alcohol, and tobacco smoking, no other drugs. in the ED, CTA of the abd pelvis, rule out any AAA, or disection , no evidence of active bleeding, it did show edema around the muscles over his lower extremities especially behind his right thigh , creatine kinase level is normal , hemoglobin level is normal , however elevated total bilirubin level. EKG showed rate controlled Afib Review of Systems Pertinent positives as noted in HPI. All other systems were reviewed and are n egative Past Medical History Past Medical History: Atrial Fibrillation, Hyperlipidemia, Hypertension, Osteoarthritis (OA) Additional Past Medical History / Comment(s): Afib, nonischemic cardiomyopathy per past medical record but pt states he is not aware of this, past arthritis R ankle, colon polyps-benign, hiatal hernis, gastritis, duodenitis, recent bilateral ankle edema-started on lasix History of Any Multi-Drug Resistant Organisms: None Reported Past Surgical History: Heart Catheterization, Orthopedic Surgery, Tonsillectomy Additional Past Surgical History / Comment(s): 01/2019 EGD with bx and colonoscopy with bx, ORIF LEFT ELBOW X 3, LEFT GANGLION CYST. , CARDIOVERSION, fx- rt femur repair with plates and screws 03/29 Past Anesthesia/Blood Transfusion Reactions: No Reported Reaction Past Psychological History: No Psychological Hx Reported Smoking Status: Current every day smoker Past Alcohol Use History: Daily Past Drug Use History: None Reported - Past Family History Daughter(s) Family Medical History: Neurologic Disorder Additional Family Medical History / Comment(s): Daughter is . Father Family Medical History: Myocardial Infarction ([place]) Additional Family Medical History / Comment(s): Father of a NC at the age of 60yrs. Mother Family Medical History: Cancer Additional Family Medical History / Comment(s): Mother of cancer at the age of 81 yrs. Pt cannot recall type of cancer. Sister(s) Family Medical History: Myocardial Infarction ([place]) Additional Family Medical History / Comment(s): Sister of a NC at the age of 48yrs. Medications and Allergies Home Medications Medication Instructions Recorded Confirmed Type Metoprolol Tartrate [Lopressor] 100 mg PO BID 03/03/18 06/23/20 History amLODIPine [Norvasc] 5 mg PO DAILY 03/03/18 06/23/20 History Apixaban [Eliquis] 5 mg PO BID 06/23/20 06/23/20 History Cyclobenzaprine [Flexeril] 10 mg PO HS 06/23/20 06/23/20 History Ferrous Sulfate [Feosol] 325 mg PO DAILY 06/23/20 06/23/20 History Allergies Allergy/AdvReac Type Severity Reaction Status Date / Time No Known Allergies Allergy Verified 06/23/20 22:04 Physical Exam Vitals: Vital Signs Temp Pulse Resp BP Pulse Ox 06/23/20 18:03 84 16 144/100 96 06/23/20 16:00 89 16 136/92 97 06/23/20 15:30 82 16 140/80 95 06/23/20 15:20 84 18 144/86 96 06/23/20 14:56 89 18 148/91 96 06/23/20 13:59 97.3 F L 79 18 167/105 98 Intake and Output 06/23/20 06/23/20 06/23/20 06:59 14:59 22:59 Other: Weight 95.254 kg Constitutional: No acute distress, conversant, pleasant Eyes: Anicteric sclerae, moist conjunctiva, Pupils equal round reactive to light ENMT: NC/AT Oropharynx clear, no erythema, or exudates Neck: Supple, FROM, no masses, or JVD No carotid bruits No thyromegaly Lungs: Clear to auscultation Clear to percussion Normal respiratory effort, no accessory muscle use Cardiovascular: Heart irregular in rate and rhythm, No murmurs, gallops, or rubs No peripheral edema Abdominal: Soft Nontender, no guarding, rebound or rigidity Abdomen moving with respiration Normoactive bowel sounds No hepatomegaly, No splenomegaly No palpable mass No abdominal wall hernia noted Skin: large echymosis involving right inner thigh extending to the right side of the scrotum , soft to palpation , no tenderness, no warmth to the touch , slight induration over the lower third of the inner thigh , no open wounds no active bleeding , otherwise Normal temperature, tone, texture, turgor chronic skin congestion and varicose veins over bilateral lower third of the legs and feet. Extremities: No digital cyanosis No clubbing Pedal pulses intact and symmetrical Radial pulses intact and symmetrical No calf tenderness Psychiatric: Alert and oriented to person, place and time Appropriate affect fair judgement Neuro Muscles Strength 5/5 in all 4 extremities Sensation to light touch grossly present throughout Cranial nerves II-XII grossly intact No focal sensory deficits Lymphatics: no palpable cervical or supraclavicular , or inguinal lymph nodes Results CBC & Chem 7: 06/23/20 14:14 06/23/20 14:50 Labs: Abnormal Lab Results - Last 24 Hours (Table) 06/23/20 06/23/20 06/23/20 Range/Units 14:14 14:50 14:50 WBC 10.8 H (3.8-10.6) k/uL MCV 100.2 H (80.0-100.0) fL Neutrophils # 7.9 H (1.3-7.7) k/uL Monocytes # 1.1 H (0-1.0) k/uL Sodium 133 L (137-145) mmol/L Chloride 97 L (98-107) mmol/L Creatinine 0.64 L (0.66-1.25) mg/dL Glucose 104 H (74-99) mg/dL Total Bilirubin 3.5 H (0.2-1.3) mg/dL Creatine Kinase (55-170) U/L Total Protein 6.1 L (6.3-8.2) g/dL Ur Leukocyte Esterase (Negative) Urine WBC (0-5) /hpf Urine Mucus (None) /hpf Blood Bank Comment Sent to [facility] A Reference Lab Result See [facility] REF Reports A 06/23/20 06/23/20 Range/Units 14:50 15:56 WBC (3.8-10.6) k/uL MCV (80.0-100.0) fL Neutrophils # (1.3-7.7) k/uL Monocytes # (0-1.0) k/uL Sodium (137-145) mmol/L Chloride (98-107) mmol/L Creatinine (0.66-1.25) mg/dL Glucose (74-99) mg/dL Total Bilirubin (0.2-1.3) mg/dL Creatine Kinase 27 L (55-170) U/L Total Protein (6.3-8.2) g/dL Ur Leukocyte Esterase Small H (Negative) Urine WBC 7 H (0-5) /hpf Urine Mucus Rare H (None) /hpf Blood Bank Comment Reference Lab Result Assessment and Plan Assessment: acute sudden onset echymosis over right inner thigh lower back pain P afib hypertension hyperlipidemia plan close monitoring of hemoglobin hold Eliquis resume blood pressure meds norvasc and metoprolol clonidin PRN for systolic blood pressure >180 pain control muscle relaxant orthopedic eval CODE STATUS:full code DVT prophylaxis: on eliquis , currently on hold secondary to right thigh hematoma Discussed with: Patient, ER, RN Anticipated length of stay < than [address]: home A total of 75 minutes was spent on the care of this complex patient more than 50% of the time was spent in counseling and care coordination.
[2020-06-24] MEDS ORDERED: LORazepam 2 MG/ML INJ IV PRN ×3 (00:03)
[2020-06-24 05:45] LABS: Basophils # (A) 0.1 k/uL (0-0.2); Basophils % (A) 1 %; Eosinophils # (A) 0.6 k/uL (0-0.7); Eosinophils % (A) 5 %; HCT 51.4 % (39.0-53.0); HGB 16.7 gm/dL (13.0-17.5); Lymphocytes # (A) 1.3 k/uL (1.0-4.8); Lymphocytes % (A) 12 %; MCH 33.1 pg (25.0-35.0); MCHC 32.4 g/dL (31.0-37.0); Macrocytosis Slight; Mean Platelet Volume 7.5; Monocytes % (A) 9 %; Neutrophils # (A) 8.1 k/uL (1.3-7.7); Neutrophils % (A) 72 %; Platelet Count 274 k/uL (150-450); RBC 5.04 m/uL (4.30-5.90); RDW 12.7 % (11.5-15.5); WBC 11.3 k/uL (3.8-10.6)
[2020-06-24] MEDS: SODIUM CHLORIDE 0.9% 1,000 ML IV SCH ×2 (05:51→13:59)
[2020-06-24 06:00] LABS: ALT 15 U/L (4-49); AST 20 U/L (17-59); African American GFR (CKD) >90 (>60 ml/min/1.73 sqM); Albumin 3.2 g/dL (3.5-5.0); Alkaline Phosphatase 61 U/L (38-126); Anion Gap 4 mmol/L; Bilirubin, Delta 0.3 mg/dL (0.0-0.2); Bilirubin,Unconjugated 3.1 mg/dL (0.0-1.1); Blood Urea Nitrogen 16 mg/dL (9-20); Calcium 8.8 mg/dL (8.4-10.2); Carbon Dioxide 30 mmol/L (22-30); Chloride 96 mmol/L (98-107); Glucose 101 mg/dL (74-99); Non-African American GFR(CKD) >90 (>60 ml/min/1.73 sqM); Potassium 3.8 mmol/L (3.5-5.1); Sodium 130 mmol/L (137-145); Total Bilirubin 3.4 mg/dL (0.2-1.3); Total Protein 5.6 g/dL (6.3-8.2)
[2020-06-24] MEDS ORDERED: amLODIPine 5 MG TAB PO SCH (09:00)
--- NOTE | 2020-06-24 13:23 | P.CNOR ---
History of Present Illness - [facility] Consult date: 06/24/20 Requesting physician: Stephen Estrada Consult reason: low back pain History of present illness: Patient is a pleasant 74-year-old male who is seen exam at bedside for consultation was placed for low back pain. Patient states prior to his admission in the hospital he has been experiencing right-sided low back pain for 10 days without injury. Since his admission his symptoms have completely subsided. He is not currently experiencing any low back pain. He denies any lower extremity weakness radiculopathy bilaterally. He is able to ambulate without difficulty. He has no complaints at the bedside in regards to his lumbar spine. Patient is currently being seen and examined by medicine for further evaluation in regards to ecchymosis and swelling along the right medial thigh and scrotum which had been worsening over the past [address] angiogram was performed in the emergency room to rule out AAA or dissection. Patient is known to be on anticoagulation medication. This medication is currently being held. He is voiding without any difficulty. He does not feel he needs further evaluation regards to his lumbar spine. He would be willing to follow-up outpatient setting as needed. He does have a history of previous right hip fracture with subsequent surgical fixation performed by Dr. Palomares. Patient's past medical history includes atrial fibrillation, hyperlipidemia, and hypertension. Past Medical History Past Medical History: Atrial Fibrillation, Hyperlipidemia, Hypertension, Osteoarthritis (OA) Additional Past Medical History / Comment(s): Afib, nonischemic cardiomyopathy per past medical record but pt states he is not aware of this, past arthritis R ankle, colon polyps-benign, hiatal hernis, gastritis, duodenitis, recent bilateral ankle edema-started on lasix History of Any Multi-Drug Resistant Organisms: None Reported Past Surgical History: Heart Catheterization, Orthopedic Surgery, Tonsillectomy Additional Past Surgical History / Comment(s): 01/2019 EGD with bx and colonoscopy with bx, ORIF LEFT ELBOW X 3, LEFT GANGLION CYST. , CARDIOVERSION, fx- rt femur repair with plates and screws 03/29 Past Anesthesia/Blood Transfusion Reactions: No Reported Reaction Past Psychological History: No Psychological Hx Reported Smoking Status: Current every day smoker Past Alcohol Use History: Daily Past Drug Use History: None Reported - Past Family History Daughter(s) Family Medical History: Neurologic Disorder Additional Family Medical History / Comment(s): Daughter is . Father Family Medical History: Myocardial Infarction ([place]) Additional Family Medical History / Comment(s): Father of a [place] at the age of 60yrs. Mother Family Medical History: Cancer Additional Family Medical History / Comment(s): Mother of cancer at the age of 81 yrs. Pt cannot recall type of cancer. Sister(s) Family Medical History: Myocardial Infarction ([place]) Additional Family Medical History / Comment(s): Sister of a SC at the age of 48yrs. Medications and Allergies Home Medications Medication Instructions Recorded Confirmed Type Metoprolol Tartrate [Lopressor] 100 mg PO BID 03/03/18 06/23/20 History amLODIPine [Norvasc] 5 mg PO DAILY 03/03/18 06/23/20 History Apixaban [Eliquis] 5 mg PO BID 06/23/20 06/23/20 History Cyclobenzaprine [Flexeril] 10 mg PO HS 06/23/20 06/23/20 History Ferrous Sulfate [Feosol] 325 mg PO DAILY 06/23/20 06/23/20 History Allergies Allergy/AdvReac Type Severity Reaction Status Date / Time No Known Allergies Allergy Verified 06/23/20 22:04 Physical Examination Physical exam: Patient is awake, alert, and oriented 3 Vital signs stable Good chest excursion with deep inspiration and expiration Abdomen soft nontender Examination of lumbar spine reveals skin is intact with no abrasions, lacerations, or bruises; no erythema, purulence or signs of infection No pain with palpation over the lumbar spine or over the sacroiliac joints bilaterally Dorsiflexion, plantarflexion, and extensor hallucis longus positive sustained bilaterally Lower extremity strength 5/5 bilaterally Some coldness to palpation over the feet bilaterally Normal sensation to palpation of the bilateral feet and ankles Straight leg test negative bilateral lower extremities No signs or symptoms of DVT; no calf pain No pain with internal and external rotation of the hips bilaterally Neurovascularly intact Results CT angiogram reviewed for orthopedic purposes taken on 06/23/2020: Overall alignment of the visualized thoracic and lumbar spine is well maintained with no evidence of spondylolisthesis; no evidence of vertebral body compression fracture; evidence of right intramedullary nail fixation were previous right hip fracture; haziness and edema involving muscles of the bilateral buttocks, right anterior thigh, right posterior thigh, left posterior thigh, and posterior compartments of the bilateral lower extremities - Labs Labs: Abnormal Lab Results - Last 24 Hours (Table) 06/23/20 06/23/20 06/23/20 Range/Units 14:14 14:50 14:50 WBC 10.8 H (3.8-10.6) k/uL MCV 100.2 H (80.0-100.0) fL Neutrophils # 7.9 H (1.3-7.7) k/uL Monocytes # 1.1 H (0-1.0) k/uL Sodium 133 L (137-145) mmol/L Chloride 97 L (98-107) mmol/L Creatinine 0.64 L (0.66-1.25) mg/dL Glucose 104 H (74-99) mg/dL Total Bilirubin 3.5 H (0.2-1.3) mg/dL Unconjugated Bilirubin (0.0-1.1) mg/dL Delta Bilirubin (0.0-0.2) mg/dL Creatine Kinase (55-170) U/L Total Protein 6.1 L (6.3-8.2) g/dL Albumin (3.5-5.0) g/dL Ur Leukocyte Esterase (Negative) Urine WBC (0-5) /hpf Urine Mucus (None) /hpf Blood Bank Comment Sent to [facility] A Reference Lab Result See [facility] REF Reports A 06/23/20 06/23/20 06/23/20 Range/Units 14:50 15:56 18:49 WBC (3.8-10.6) k/uL MCV (80.0-100.0) fL Neutrophils # (1.3-7.7) k/uL Monocytes # (0-1.0) k/uL Sodium (137-145) mmol/L Chloride (98-107) mmol/L Creatinine (0.66-1.25) mg/dL Glucose (74-99) mg/dL Total Bilirubin (0.2-1.3) mg/dL Unconjugated Bilirubin (0.0-1.1) mg/dL Delta Bilirubin (0.0-0.2) mg/dL Creatine Kinase 27 L (55-170) U/L Total Protein (6.3-8.2) g/dL Albumin (3.5-5.0) g/dL Ur Leukocyte Esterase Small H (Negative) Urine WBC 7 H (0-5) /hpf Urine Mucus Rare H (None) /hpf Blood Bank Comment Sent to [facility] A Reference Lab Result 06/24/20 06/24/20 Range/Units 05:30 05:30 WBC 11.3 H (3.8-10.6) k/uL MCV 102.0 H (80.0-100.0) fL Neutrophils # 8.1 H (1.3-7.7) k/uL Monocytes # (0-1.0) k/uL Sodium 130 L (137-145) mmol/L Chloride 96 L (98-107) mmol/L Creatinine (0.66-1.25) mg/dL Glucose 101 H (74-99) mg/dL Total Bilirubin 3.4 H (0.2-1.3) mg/dL Unconjugated Bilirubin 3.1 H (0.0-1.1) mg/dL Delta Bilirubin 0.3 H (0.0-0.2) mg/dL Creatine Kinase (55-170) U/L Total Protein 5.6 L (6.3-8.2) g/dL Albumin 3.2 L (3.5-5.0) g/dL Ur Leukocyte Esterase (Negative) Urine WBC (0-5) /hpf Urine Mucus (None) /hpf Blood Bank Comment Reference Lab Result H & H 06/23/20 06/24/20 Range/Units 14:14 05:30 Hgb 17.4 16.7 (13.0-17.5) gm/dL Hct 52.9 51.4 (39.0-53.0) % Coagulation 06/23/20 Range/Units 14:14 INR 1.1 (<1.2) Result Diagrams: 06/24/20 05:30 06/24/20 05:30 Assessment and Plan Assessment: Assessment: Right-sided low back pain for 10 days without known injury resolved Haziness and edema involving muscles of the bilateral buttocks, right anterior t high, right posterior thigh, left posterior thigh, and posterior compartments of the bilateral lower extremities Right medial thigh and scrotal ecchymosis and swelling of unknown cause History of atrial fibrillation on anticoagulation Hypertension Hyperlipidemia History of right hip intramedullary nail fixation for previous fracture (1) Acute right-sided low back pain Current Visit: Yes Status: Acute Code(s): M54.5 - LOW BACK PAIN SNOMED Code(s): 028446546 (2) History of atrial fibrillation Current Visit: Yes Status: Acute Code(s): Z86.79 - PERSONAL HISTORY OF OTHER DISEASES OF THE CIRCULATORY SYSTEM SNOMED Code(s): 176158252 (3) Hypertension Current Visit: Yes Status: Acute Code(s): I10 - ESSENTIAL (PRIMARY) HYPERTENSION SNOMED Code(s): 45116818 (4) Hyperlipidemia Current Visit: Yes Status: Acute Code(s): E78.5 - HYPERLIPIDEMIA, UNSPECIFIED SNOMED Code(s): 64592061 (5) History of fracture of right hip Current Visit: Yes Status: Acute Code(s): Z87.81 - PERSONAL HISTORY OF (HEALED) TRAUMATIC FRACTURE SNOMED Code(s): 752652168 (6) Hematoma of right thigh Current Visit: Yes Status: Acute Code(s): S70.11XA - CONTUSION OF RIGHT THIGH, INITIAL ENCOUNTER SNOMED Code(s): 14514609600490755 Plan: Plan: 1. After physical examination of the patient, reviewing available imaging, and further discussion with the patient, we will plan to continue conservative treatment at this time. Patient states he is not experiencing any low back pain currently. He was expressing right-sided low back pain for approximately 10 days prior to admittance to the hospital. His symptoms have completely resolved. He denies any lower extremity weakness radiculopathy bilaterally. At this time he does not feel he needs any further evaluation regards to his spine. From an orthopedic spine standpoint, patient is clear for discharge was cleared by other medical providers. We will plan to have him follow-up in the outpatient setting on an as-needed basis. We did discuss if he has an exacerbation of the symptoms he may call the office to set up a follow-up appointment time. At that time patient may follow-up with Evgeny Bentley PA-C or Dr. Shashank Mcginnis at [facility]. 2. Patient will continue to be seen examined by medicine for his other medical diagnoses including ecchymosis and swelling of the right medial thigh and scrotum Time with Patient: Greater than 30 (Including obtaining history, physical examination, reviewing of imaging, and dictation.)
[2020-06-24 15:36] VITALS: BP 129/71; PULSE 84; RESP 18; TEMP 97.7
--- NOTE | 2020-06-24 17:19 | P.GSCN ---
History of Present Illness Consult date: 06/24/20 Reason for Consult: Right groin hematoma, stenosis History of present illness: The patient is 74-year-old male who came in for complaints of right sided flank pain and leg pain . The pain started approximately 1-2 weeks ago, he had seen his primary care provider who started him on prednisone a week ago. Approximately 4 days ago he noticed some bruising to his right groin that progressively got worse. He denies any trauma or injury. He does have a past medical history of atrial fibrillation, hypertension, hyperlipidemia, alcohol abuse, and current smoker half to 1 pack per day for the past 60 years. Patient currently is taking Ahlquist for his atrial fibrillation. He states he's had 2 cardiac catheters most recent was 3-4 years ago. The patient states he also broke his right femur approximately 4 years ago and [facility] He denies any pain to his right lower extremity, denies any difficulty with walking. He states that the right back and flank pain has improved as well. Patient states he uses a walker at home due to imbalance issues. He denies any shortness of breath or chest pain, bleeding, or abdominal pain. The patient underwent a CT angiogram of the abdomen and pelvis and lower extremities. CTA runoff examination with contrast opacification to the left lobe of the distal superficial femoral arteries. Popliteal and infrapopliteal runoff is not evaluated. There is no evidence of abdominal aortic aneurysm, dissection, or rupture. Significant stenosis of the right renal artery ostium is seen. There is multifocal significant stenosis of the left superficial femoral artery. Hazy, edematous appearance involving several muscle groups including the bilateral buttocks, the anterior and posterior compartments of the right thigh, the posterior compartment of the left thigh, in the posterior compartments of the bilateral lower extremities. Differential includes myositis. There is also edema and skin thickening of the posterior right thigh, which may represent cellulitis. His WBC is 11.3, hemoglobin is 16.7, hematocrit 51.4, platelets are 274. INR is 1.1. Review of Systems A 14 point review of systems was completed. All pertinent positives and negatives as stated in the HPI Past Medical History Past Medical History: Atrial Fibrillation, Hyperlipidemia, Hypertension, Osteoarthritis (OA) Additional Past Medical History / Comment(s): Afib, nonischemic cardiomyopathy per past medical record but pt states he is not aware of this, past arthritis R ankle, colon polyps-benign, hiatal hernis, gastritis, duodenitis, recent bilateral ankle edema-started on lasix History of Any Multi-Drug Resistant Organisms: None Reported Past Surgical History: Heart Catheterization, Orthopedic Surgery, Tonsillectomy Additional Past Surgical History / Comment(s): 01/2019 EGD with bx and colonoscopy with bx, ORIF LEFT ELBOW X 3, LEFT GANGLION CYST. , CARDIOVERSION, fx- rt femur repair with plates and screws 03/29 Past Anesthesia/Blood Transfusion Reactions: No Reported Reaction Past Psychological History: No Psychological Hx Reported Smoking Status: Current every day smoker Past Alcohol Use History: Daily Past Drug Use History: None Reported - Past Family History Daughter(s) Family Medical History: Neurologic Disorder Additional Family Medical History / Comment(s): Daughter is . Father Family Medical History: Myocardial Infarction ([place]) Additional Family Medical History / Comment(s): Father of a [place] at the age of 60yrs. Mother Family Medical History: Cancer Additional Family Medical History / Comment(s): Mother of cancer at the age of 81 yrs. Pt cannot recall type of cancer. Sister(s) Family Medical History: Myocardial Infarction ([place]) Additional Family Medical History / Comment(s): Sister of a [place] at the age of 48yrs. Medications and Allergies Home Medications Medication Instructions Recorded Confirmed Type Metoprolol Tartrate [Lopressor] 100 mg PO BID 03/03/18 06/23/20 History amLODIPine [Norvasc] 5 mg PO DAILY 03/03/18 06/23/20 History Apixaban [Eliquis] 5 mg PO BID 06/23/20 06/23/20 History Cyclobenzaprine [Flexeril] 10 mg PO HS 06/23/20 06/23/20 History Ferrous Sulfate [Iron (65 MG 325 mg PO DAILY 06/23/20 06/23/20 History Elemental)] Allergies Allergy/AdvReac Type Severity Reaction Status Date / Time No Known Allergies Allergy Verified 06/23/20 22:04 Surgical - Exam Vital Signs Temp Pulse Resp BP Pulse Ox 97.3 F L 79 18 167/105 98 06/23/20 13:59 06/23/20 13:59 06/23/20 13:59 06/23/20 13:59 06/23/20 13:59 General appearance: The patient is alert, oriented, in no acute distress. HET: Head is normocephalic and atraumatic. Neck: Supple Heart: S1 S2. Regular rate and rhythm. Lungs: No crackles or wheezes are heard. Abdomen: Soft, nontender, nondistended with bowel sounds. No peritoneal signs. No palpable organomegaly or masses. Extremities: Palpable bilateral femoral and DP pulses. Right medial thigh with ecchymosis extending to right groin, no swelling or palpable hematoma. No pain to palpation. Neurological: No focal deficits. Strength and sensation are grossly intact. Results CT angiogram of the abdomen and pelvis with runoff as dictated in the HPI - Labs 06/24/20 05:30 06/24/20 05:30 Abnormal Lab Results - Last 24 Hours (Table) 06/23/20 06/23/20 06/23/20 Range/Units 14:14 14:50 14:50 WBC 10.8 H (3.8-10.6) k/uL MCV 100.2 H (80.0-100.0) fL Neutrophils # 7.9 H (1.3-7.7) k/uL Monocytes # 1.1 H (0-1.0) k/uL Sodium 133 L (137-145) mmol/L Chloride 97 L (98-107) mmol/L Creatinine 0.64 L (0.66-1.25) mg/dL Glucose 104 H (74-99) mg/dL Total Bilirubin 3.5 H (0.2-1.3) mg/dL Unconjugated Bilirubin (0.0-1.1) mg/dL Delta Bilirubin (0.0-0.2) mg/dL Creatine Kinase (55-170) U/L Total Protein 6.1 L (6.3-8.2) g/dL Albumin (3.5-5.0) g/dL Ur Leukocyte Esterase (Negative) Urine WBC (0-5) /hpf Urine Mucus (None) /hpf Blood Bank Comment Sent to [facility] A Reference Lab Result See [facility]K REF Reports A 06/23/20 06/23/20 06/23/20 Range/Units 14:50 15:56 18:49 WBC (3.8-10.6) k/uL MCV (80.0-100.0) fL Neutrophils # (1.3-7.7) k/uL Monocytes # (0-1.0) k/uL Sodium (137-145) mmol/L Chloride (98-107) mmol/L Creatinine (0.66-1.25) mg/dL Glucose (74-99) mg/dL Total Bilirubin (0.2-1.3) mg/dL Unconjugated Bilirubin (0.0-1.1) mg/dL Delta Bilirubin (0.0-0.2) mg/dL Creatine Kinase 27 L (55-170) U/L Total Protein (6.3-8.2) g/dL Albumin (3.5-5.0) g/dL Ur Leukocyte Esterase Small H (Negative) Urine WBC 7 H (0-5) /hpf Urine Mucus Rare H (None) /hpf Blood Bank Comment Sent to [facility] A Reference Lab Result 06/24/20 06/24/20 Range/Units 05:30 05:30 WBC 11.3 H (3.8-10.6) k/uL MCV 102.0 H (80.0-100.0) fL Neutrophils # 8.1 H (1.3-7.7) k/uL Monocytes # (0-1.0) k/uL Sodium 130 L (137-145) mmol/L Chloride 96 L (98-107) mmol/L Creatinine (0.66-1.25) mg/dL Glucose 101 H (74-99) mg/dL Total Bilirubin 3.4 H (0.2-1.3) mg/dL Unconjugated Bilirubin 3.1 H (0.0-1.1) mg/dL Delta Bilirubin 0.3 H (0.0-0.2) mg/dL Creatine Kinase (55-170) U/L Total Protein 5.6 L (6.3-8.2) g/dL Albumin 3.2 L (3.5-5.0) g/dL Ur Leukocyte Esterase (Negative) Urine WBC (0-5) /hpf Urine Mucus (None) /hpf Blood Bank Comment Reference Lab Result Diabetes panel 06/23/20 06/24/20 Range/Units 14:50 05:30 Sodium 133 L 130 L (137-145) mmol/L Potassium 4.8 3.8 (3.5-5.1) mmol/L Chloride 97 L 96 L (98-107) mmol/L Carbon Dioxide 29 30 (22-30) mmol/L BUN 19 16 (9-20) mg/dL Creatinine 0.64 L 0.70 (0.66-1.25) mg/dL Glucose 104 H 101 H (74-99) mg/dL Calcium 9.1 8.8 (8.4-10.2) mg/dL AST 24 20 (17-59) U/L ALT 17 15 (4-49) U/L Alkaline Phosphatase 68 61 (38-126) U/L Total Protein 6.1 L 5.6 L (6.3-8.2) g/dL Albumin 3.6 3.2 L (3.5-5.0) g/dL Calcium panel 06/23/20 06/24/20 Range/Units 14:50 05:30 Calcium 9.1 8.8 (8.4-10.2) mg/dL Albumin 3.6 3.2 L (3.5-5.0) g/dL Pituitary panel 06/23/20 06/24/20 Range/Units 14:50 05:30 Sodium 133 L 130 L (137-145) mmol/L Potassium 4.8 3.8 (3.5-5.1) mmol/L Chloride 97 L 96 L (98-107) mmol/L Carbon Dioxide 29 30 (22-30) mmol/L BUN 19 16 (9-20) mg/dL Creatinine 0.64 L 0.70 (0.66-1.25) mg/dL Glucose 104 H 101 H (74-99) mg/dL Calcium 9.1 8.8 (8.4-10.2) mg/dL Adrenal panel 06/23/20 06/24/20 Range/Units 14:50 05:30 Sodium 133 L 130 L (137-145) mmol/L Potassium 4.8 3.8 (3.5-5.1) mmol/L Chloride 97 L 96 L (98-107) mmol/L Carbon Dioxide 29 30 (22-30) mmol/L BUN 19 16 (9-20) mg/dL Creatinine 0.64 L 0.70 (0.66-1.25) mg/dL Glucose 104 H 101 H (74-99) mg/dL Calcium 9.1 8.8 (8.4-10.2) mg/dL Total Bilirubin 3.5 H 3.4 H (0.2-1.3) mg/dL AST 24 20 (17-59) U/L ALT 17 15 (4-49) U/L Alkaline Phosphatase 68 61 (38-126) U/L Total Protein 6.1 L 5.6 L (6.3-8.2) g/dL Albumin 3.6 3.2 L (3.5-5.0) g/dL Assessment and Plan Assessment: 1. Ecchymosis to right medial thigh 2. Peripheral vascular disease 3. Low back pain 4. Atrial fibrillation 5. Hypertension 6. Hyperlipidemia 7. Tobacco abuse 8. Alcohol abuse Plan: CTA abdomen and pelvis reviewed by Dr. Mcbride. There is no indication for any vascular surgical intervention at this time. Patient may be discharged from a vascular surgical standpoint. Patient to follow-up with vascular surgery after discharge. You for this consultation allowing us take part in the plan of care of your patient during his hospital stay. The above dictated assessment and findings were discussed with Dr. Mcbride. The impression and plan of care have been directed as dictated.
[2020-06-24] MEDS ORDERED: THIAMINE 100 MG TAB PO SCH (17:30)
--- NOTE | 2020-06-26 08:21 | P.DS ---
Providers Date of admission: 06/23/20 18:29 Expected date of discharge: 06/26/20 Attending physician: Sammie Dawson MD Consults: 06/23/20 23:42 Consult Physician Routine Consulting Provider: Roberta Mcginnis Consult Reason/Comments: lower back pain Do you want consulting provider notified?: Yes, Notify in am 06/24/20 08:53 Consult Physician Routine Consulting Provider: Christel Bose Consult Reason/Comments: hematoma, stenosis Do you want consulting provider notified?: Yes Primary care physician: [facility] Course: This is a late entry. Patient was seen on 06/24/2020. 74 year old male with hypertension , P afib, hyperlipidemia patient comes in with 4 days history of enlarging echymosis and bruising over his right inner thing and scrotum. he denies any associated injury trauma or fall. he is on eliquis for Afib, and has recently finished a five day course of medrol dose pack 2 days ago, he adds, that for the past few weeks he has been experiencing right flank pain and low back pain that radiates to his right thigh, denies any focal neuro deficits associated, however pain today was limiting his ability to stand up or walk for which he decided to come to the hospital . he saw his PCP for it, who has prescribed him 5 day course of medrole dose pack for suspected acute sciatica causing the pain that he just finished 2 days ago . he otherwise, denies any other bleeding, denies any injuries, denies hematuria or bloody bowel movement. he denies any chest pain or trouble breathing, denies fever, chills. or any other rashes. in the ED, CTA of the abd pelvis, rule out any AAA, or disection , no evidence of active bleeding, it did show edema around the muscles over his lower extremities especially behind his right thigh , creatine kinase level is normal , hemoglobin level is normal , however elevated total bilirubin level. EKG showed rate controlled Afib Eliquis was held. Orthopedic surgery was consulted and recommended vascular surgery consult. Vascular surgery was consulted and recommended no surgical intervention. Patient was cleared from both standpoints. Patient was seen and examined. He reports improvement in his swelling medial right thigh. He continues to report ecchymosis in that area. He denies any chest pain, shortness breath or palpitations. No nausea or vomiting. No fever or chills. General: [non toxic], [no distress], [appears at stated age] Derm: [warm], [dry] Head: [atraumatic], [normocephalic], [symmetric] Eyes: [EOMI], [no lid lag], [anicteric sclera] Mouth: [no lip lesion], [mucus membranes moist] Cardiovascular: [S1S2 reg], [no murmur], [positive DP pulse bilateral], Lungs: [CTA bilateral], [no rhonchi, no rales] , [no accessory muscle use] Abdominal: [soft], [ nontender to palpation], [no guarding], [no appreciable organomegaly] Ext: [no gross muscle atrophy], [no edema], [no contractures], ecchymosis right medial thigh nontender to palpation. Neuro: [no focal neuro deficits] Psych: [Alert], [oriented], [appropriate affect] Ecchymosis over the right inner thigh Hyponatremia Leukocytosis History of alcohol use Paroxysmal atrial fibrillation Hypertension Patient's hemoglobin has remained stable. He'll be restarted on Eliquis. Orthopedic surgery vascular surgery has cleared the patient for discharge. He has a sodium of 130 along with hypochloremia which is likely related to dehydration. Patient encouraged hydration by mouth. He has a mild leukocytosis of 11.3 likely related to the Medrol Dosepak he received in the outpatient setting. He has been on CIWA protocol while inpatient. Restart metoprolol for atrial fibrillation and hypertension. Will DC patient home today. Follow-up with orthopedic surgery within 1 week of discharge. Follow-up with PCP within 3 days of discharge. Patient verbalized understanding of the plan. Pertinent Studies: CTA Patient Condition at Discharge: Stable Plan - Discharge Summary Discharge Rx Participant: No New Discharge Prescriptions: Continue amLODIPine [Norvasc] 5 mg PO DAILY Metoprolol Tartrate [Lopressor] 100 mg PO BID Cyclobenzaprine [Flexeril] 10 mg PO HS Ferrous Sulfate [Iron (65 MG Elemental)] 325 mg PO DAILY Apixaban [Eliquis] 5 mg PO BID Discharge Medication List Metoprolol Tartrate [Lopressor] 100 mg PO BID 03/03/18 [History] amLODIPine [Norvasc] 5 mg PO DAILY 03/03/18 [History] Apixaban [Eliquis] 5 mg PO BID 06/23/20 [History] Cyclobenzaprine [Flexeril] 10 mg PO HS 06/23/20 [History] Ferrous Sulfate [Iron (65 MG Elemental)] 325 mg PO DAILY 06/23/20 [History] Follow up Appointment(s)/Referral(s): Evgeny Bentley PAC [PHYSICIAN DEVOPS ARCHITECT] - As Needed (Patient may follow-up with Evgeny Bentley PA-C or Dr. Shashank Mcginnis at [facility] on an as-needed basis following discharge. ) Summer Vickers MD [Primary Care Provider] - 1-2 days Patient Instructions/Handouts: Contusion in Adults (GEN) Discharge Disposition: HOME SELF-CARE
== END 2020-06-24 18:38 | disposition home or self-care (01) ==
LOC: EC 13:52 → 1SOBS 18:29
PROVIDERS: ADMIT Family Medicine; ATTEND Family Medicine
DX: S70.11XA Contusion of right thigh, initial encounter (principal); S30.22XA Contusion of scrotum and testes, initial encounter; M54.5 Low back pain; M54.16 Radiculopathy, lumbar region; E78.5 Hyperlipidemia, unspecified; I10 Essential (primary) hypertension; F17.210 Nicotine dependence, cigarettes, uncomplicated; M19.90 Unspecified osteoarthritis, unspecified site; F10.10 Alcohol abuse, uncomplicated; I42.8 Other cardiomyopathies; Z86.010 Personal history of colon polyps; K44.9 Diaphragmatic hernia without obstruction or gangrene; Z87.19 Personal history of other diseases of the digestive system; R60.0 Localized edema; Z98.890 Other specified postprocedural states; Z87.81 Personal history of (healed) traumatic fracture; Z82.0 Family history of epilepsy and other diseases of the nervous system; Z82.49 Family history of ischemic heart disease and other diseases of the circulatory system; Z80.9 Family history of malignant neoplasm, unspecified; Z79.01 Long term (current) use of anticoagulants; Z79.51 Long term (current) use of inhaled steroids; Z79.52 Long term (current) use of systemic steroids; Z79.899 Other long term (current) drug therapy; I70.202 Unspecified atherosclerosis of native arteries of extremities, left leg; I48.91 Unspecified atrial fibrillation
CPT/HCPCS: 96376; 96374; 99285; 36415; 93005; 86900; 86901; 80053 ×2; 85652; 82150; 82248; 82550; 82553; 83605; 83690; 85025 ×2; 85610; 85730; 86850; 86870; 86140; 86880; 81001; 75635; G0378 ×2; J1170 ×2; Q9967

== ENCOUNTER → 2020-08-08 | Outpatient (CLI) | payer MEDICARE, OTHER ==
[2020-08-08 16:17] LABS: African American GFR (CKD) 109.3 (60.0-200.0); Albumin 3.7 g/dL (3.80-4.90); Albumin/Globulin Ratio 2.06 (1.60-3.17); Anion Gap 6.7 mmol/L (4.00-12.00); BUN/Creat Ratio 17.14 Ratio (12.00-20.00); Carbon Dioxide 29.3 mmol/L (21.6-31.8); Chol/HDL Ratio 2.77; Globulin 1.8 g/dL (1.6-3.3); Non-African American GFR(CKD) 94.3 (60.0-200.0); Potassium 4.6 mmol/L (3.5-5.5); Total Bilirubin 1.6 mg/dL (0.2-1.2); Total Protein 5.5 g/dL (6.2-8.2)
== END | disposition home or self-care (01) ==
LOC: LABWHC1 08:16
PROVIDERS: ATTEND Internal Medicine Interventional Cardiology
DX: E78.2 Mixed hyperlipidemia (principal)
CPT/HCPCS: 36415; 80053; 80061

== ENCOUNTER → 2021-03-16 | Outpatient (CLI) | payer MEDICARE, OTHER ==
[2021-03-16 20:15] LABS: African American GFR (CKD) 97.9 (60.0-200.0); Non-African American GFR(CKD) 84.4 (60.0-200.0); Potassium 4.5 mmol/L (3.5-5.5)
== END | disposition home or self-care (01) ==
LOC: LABWHC1 08:56
PROVIDERS: ATTEND Internal Medicine Interventional Cardiology
DX: I10 Essential (primary) hypertension (principal)
CPT/HCPCS: 36415; 80051; 82565; 84520

== ENCOUNTER → 2021-06-30 | Outpatient (CLI) | payer MEDICARE, OTHER ==
[2021-06-30 15:54] LABS: African American GFR (CKD) 97.9 (60.0-200.0); Albumin 3.7 g/dL (3.80-4.90); Albumin/Globulin Ratio 1.54 (1.60-3.17); Anion Gap 2.5 mmol/L (4.00-12.00); BUN/Creat Ratio 14.44 Ratio (12.00-20.00); Calcium 8.8 mg/dL (8.7-10.3); Carbon Dioxide 32.5 mmol/L (21.6-31.8); Globulin 2.4 g/dL (1.6-3.3); Non-African American GFR(CKD) 84.4 (60.0-200.0); Potassium 4.8 mmol/L (3.5-5.5); Total Protein 6.1 g/dL (6.2-8.2)
== END | disposition home or self-care (01) ==
LOC: LABWHC1 07:11
PROVIDERS: ATTEND Internal Medicine Interventional Cardiology
DX: I25.10 Atherosclerotic heart disease of native coronary artery without angina pectoris (principal)
CPT/HCPCS: 36415; 80053

== ENCOUNTER 2021-10-15 12:37 | Inpatient (IN) | payer MEDICARE, OTHER ==
--- NOTE | 2021-10-15 13:33 | XR ---
EXAMINATION TYPE: XR chest 2V DATE OF EXAM: 10/15/2021 COMPARISON: Chest x-ray March 27, 2019 HISTORY: Difficulty in breathing for weeks. TECHNIQUE: Frontal and lateral views of the chest are obtained. FINDINGS: There are chronic parenchymal changes bilaterally redemonstrated. Small right pleural effu nely redemonstrated. New tiny left pleural effusion. The cardiac silhouette size is mildly enlarged w ith atherosclerotic aorta. The osseous structures are intact. IMPRESSION: Mild cardiomegaly and chronic parenchymal changes with small right pleural effusion and associated right basilar compressive atelectasis all redemonstrated without significant interval tate ge. New tiny left pleural effusion.
--- NOTE | 2021-10-15 13:55 | ED ---
General Adult HPI - General Chief complaint: Shortness of Breath Stated complaint: Low oxygen Time Seen by Provider: 10/15/21 12:51 Source: patient, RN notes reviewed, old records reviewed Mode of arrival: ambulatory Limitations: no limitations - History of Present Illness Initial comments: 75-year-old male presenting from primary care office for 2 weeks of dyspnea. And a 16 pound weight gain. He has history of CHF, CAD. He has noted increased lower extremity swelling as well as dyspnea. He denies cough or fever. He denies central chest pain. He has been vaccinated against coronavirus. - Related Data Home Medications Medication Instructions Recorded Confirmed Metoprolol Tartrate [Lopressor] 100 mg PO BID 03/03/18 10/15/21 amLODIPine [Norvasc] 5 mg PO DAILY 03/03/18 10/15/21 Apixaban [Eliquis] 5 mg PO BID 06/23/20 10/15/21 Ferrous Sulfate [Iron (65 MG 325 mg PO DAILY 06/23/20 10/15/21 Elemental)] Allergies Allergy/AdvReac Type Severity Reaction Status Date / Time No Known Allergies Allergy Verified 10/15/21 14:27 Review of Systems ROS Statement: Those systems with pertinent positive or pertinent negative responses have been documented in the HPI. ROS Other: All systems not noted in ROS Statement are negative. Past Medical History Past Medical History: Atrial Fibrillation, Hyperlipidemia, Hypertension, Osteoarthritis (OA) Additional Past Medical History / Comment(s): Afib, nonischemic cardiomyopathy per past medical record but pt states he is not aware of this, past arthritis R ankle, colon polyps-benign, hiatal hernis, gastritis, duodenitis, recent bilateral ankle edema-started on lasix History of Any Multi-Drug Resistant Organisms: None Reported Past Surgical History: Heart Catheterization, Orthopedic Surgery, Tonsillectomy Additional Past Surgical History / Comment(s): 01/2019 EGD with bx and colonoscopy with bx, ORIF LEFT ELBOW X 3, LEFT GANGLION CYST. , CARDIOVERSION, fx- rt femur repair with plates and screws 03/29 Past Anesthesia/Blood Transfusion Reactions: No Reported Reaction Past Psychological History: No Psychological Hx Reported Smoking Status: Current every day smoker Past Alcohol Use History: Daily Past Drug Use History: None Reported - Past Family History Daughter(s) Family Medical History: Neurologic Disorder Additional Family Medical History / Comment(s): Daughter is . Father Family Medical History: Myocardial Infarction ([place]) Additional Family Medical History / Comment(s): Father of a [place] at the age of 60yrs. Mother Family Medical History: Cancer Additional Family Medical History / Comment(s): Mother of cancer at the age of 81 yrs. Pt cannot recall type of cancer. Sister(s) Family Medical History: Myocardial Infarction ([place]) Additional Family Medical History / Comment(s): Sister of a [place] at the age of 48yrs. General Exam Limitations: no limitations General appearance: alert, in no apparent distress Head exam: Present: atraumatic, normocephalic Eye exam: Present: normal appearance, PERRL ENT exam: Present: normal exam Neck exam: Present: normal inspection. Absent: tenderness, meningismus Respiratory exam: Present: rales, decreased breath sounds. Absent: respiratory distress Cardiovascular Exam: Present: regular rate, irregular rhythm GI/Abdominal exam: Present: soft. Absent: distended, tenderness, guarding Extremities exam: Present: pedal edema. Absent: calf tenderness Neurological exam: Present: alert, oriented X3, CN II-XII intact. Absent: motor sensory deficit Psychiatric exam: Present: normal affect, normal mood Skin exam: Present: warm, dry, intact. Absent: cyanosis, diaphoretic Course Vital Signs 10/15/21 12:45 Temperature 98.9 F Pulse Rate 78 Respiratory 24 Rate Blood Pressure 146/89 O2 Sat by Pulse 84 L Oximetry EKG Findings - EKG Comments: EKG Findings:: EKG: H fibrillation, rightward axis, low voltage, rate of 79, QRS duration 86, QTC 456, no ST segment elevation. Medical Decision Making - Medical Decision Making 75-year-old male with 2 weeks of dyspnea, lower extremity edema, and weight gain. Patienthas history of atrial fibrillation, cardiomyopathy, CHF. His chest x-ray shows bilateral effusions. He has a negative troponin but significantly elevated BNP. He started on Lasix in the emergency department. He will be admitted to [facility]. Echo has been ordered. - Lab Data Result diagrams: 10/15/21 13:19 10/15/21 13:19 Lab Results 10/15/21 10/15/21 10/15/21 Range/Units 13:19 13:19 13:19 WBC 7.3 (3.8-10.6) k/uL RBC 4.50 (4.30-5.90) m/uL Hgb 15.8 (13.0-17.5) gm/dL Hct 48.3 (39.0-53.0) % MCV 107.4 H (80.0-100.0) fL MCH 35.1 H (25.0-35.0) pg MCHC 32.7 (31.0-37.0) g/dL RDW 13.9 (11.5-15.5) % Plt Count 219 (150-450) k/uL MPV 7.9 Neutrophils % 75 % Lymphocytes % 11 % Monocytes % 9 % Eosinophils % 2 % Basophils % 1 % Neutrophils # 5.5 (1.3-7.7) k/uL Lymphocytes # 0.8 L (1.0-4.8) k/uL Monocytes # 0.7 (0-1.0) k/uL Eosinophils # 0.2 (0-0.7) k/uL Basophils # 0.0 (0-0.2) k/uL Macrocytosis Moderate PT 11.1 (9.0-12.0) sec INR 1.1 (<1.2) APTT 27.8 (22.0-30.0) sec Sodium 136 L (137-145) mmol/L Potassium 3.8 (3.5-5.1) mmol/L Chloride 101 (98-107) mmol/L Carbon Dioxide 30 (22-30) mmol/L Anion Gap 5 mmol/L BUN 17 (9-20) mg/dL Creatinine 0.75 (0.66-1.25) mg/dL Est GFR (CKD-EPI)AfAm >90 (>60 ml/min/1.73 sqM) Est GFR (CKD-EPI)NonAf >90 (>60 ml/min/1.73 sqM) Glucose 107 H (74-99) mg/dL Plasma Lactic Acid Eric (0.7-2.0) mmol/L Calcium 8.9 (8.4-10.2) mg/dL Magnesium 1.5 L (1.6-2.3) mg/dL Total Bilirubin 2.8 H (0.2-1.3) mg/dL AST 23 (17-59) U/L ALT 10 (4-49) U/L Alkaline Phosphatase 95 (38-126) U/L Troponin I (0.000-0.034) ng/mL NT-Pro-B Natriuret Pep pg/mL Total Protein 6.3 (6.3-8.2) g/dL Albumin 3.4 L (3.5-5.0) g/dL Coronavirus (PCR) (Not Detectd) 10/15/21 10/15/21 10/15/21 Range/Units 13:19 13:19 13:19 WBC (3.8-10.6) k/uL RBC (4.30-5.90) m/uL Hgb (13.0-17.5) gm/dL Hct (39.0-53.0) % MCV (80.0-100.0) fL MCH (25.0-35.0) pg MCHC (31.0-37.0) g/dL RDW (11.5-15.5) % Plt Count (150-450) k/uL MPV Neutrophils % % Lymphocytes % % Monocytes % % Eosinophils % % Basophils % % Neutrophils # (1.3-7.7) k/uL Lymphocytes # (1.0-4.8) k/uL Monocytes # (0-1.0) k/uL Eosinophils # (0-0.7) k/uL Basophils # (0-0.2) k/uL Macrocytosis PT (9.0-12.0) sec INR (<1.2) APTT (22.0-30.0) sec Sodium (137-145) mmol/L Potassium (3.5-5.1) mmol/L Chloride (98-107) mmol/L Carbon Dioxide (22-30) mmol/L Anion Gap mmol/L BUN (9-20) mg/dL Creatinine (0.66-1.25) mg/dL Est GFR (CKD-EPI)AfAm (>60 ml/min/1.73 sqM) Est GFR (CKD-EPI)NonAf (>60 ml/min/1.73 sqM) Glucose (74-99) mg/dL Plasma Lactic Acid Eric 1.5 (0.7-2.0) mmol/L Calcium (8.4-10.2) mg/dL Magnesium (1.6-2.3) mg/dL Total Bilirubin (0.2-1.3) mg/dL AST (17-59) U/L ALT (4-49) U/L Alkaline Phosphatase (38-126) U/L Troponin I <0.012 (0.000-0.034) ng/mL NT-Pro-B Natriuret Pep 4710 pg/mL Total Protein (6.3-8.2) g/dL Albumin (3.5-5.0) g/dL Coronavirus (PCR) (Not Detectd) 10/15/21 Range/Units 13:19 WBC (3.8-10.6) k/uL RBC (4.30-5.90) m/uL Hgb (13.0-17.5) gm/dL Hct (39.0-53.0) % MCV (80.0-100.0) fL MCH (25.0-35.0) pg MCHC (31.0-37.0) g/dL RDW (11.5-15.5) % Plt Count (150-450) k/uL MPV Neutrophils % % Lymphocytes % % Monocytes % % Eosinophils % % Basophils % % Neutrophils # (1.3-7.7) k/uL Lymphocytes # (1.0-4.8) k/uL Monocytes # (0-1.0) k/uL Eosinophils # (0-0.7) k/uL Basophils # (0-0.2) k/uL Macrocytosis PT (9.0-12.0) sec INR (<1.2) APTT (22.0-30.0) sec Sodium (137-145) mmol/L Potassium (3.5-5.1) mmol/L Chloride (98-107) mmol/L Carbon Dioxide (22-30) mmol/L Anion Gap mmol/L BUN (9-20) mg/dL Creatinine (0.66-1.25) mg/dL Est GFR (CKD-EPI)AfAm (>60 ml/min/1.73 sqM) Est GFR (CKD-EPI)NonAf (>60 ml/min/1.73 sqM) Glucose (74-99) mg/dL Plasma Lactic Acid Eric (0.7-2.0) mmol/L Calcium (8.4-10.2) mg/dL Magnesium (1.6-2.3) mg/dL Total Bilirubin (0.2-1.3) mg/dL AST (17-59) U/L ALT (4-49) U/L Alkaline Phosphatase (38-126) U/L Troponin I (0.000-0.034) ng/mL NT-Pro-B Natriuret Pep pg/mL Total Protein (6.3-8.2) g/dL Albumin (3.5-5.0) g/dL Coronavirus (PCR) Not Detected (Not Detectd) Disposition Clinical Impression: Congestive heart failure Disposition: ADMITTED IP TO THIS HOSP Condition: Stable Is patient prescribed a controlled substance at d/c from ED?: No Referrals: Summer Vickers MD [Primary Care Provider] - 1-2 days Decision to Admit Reason: Admit from EC Decision Date: 10/15/21 Decision Time: 14:56
[2021-10-15 14:00] LABS: INR 1.1 (<1.2); Partial Thromboplastin Time 27.8 sec (22.0-30.0); Prothrombin Time 11.1 sec (9.0-12.0)
[2021-10-15 14:03] LABS: ALT 10 U/L (4-49); AST 23 U/L (17-59); African American GFR (CKD) >90 (>60 ml/min/1.73 sqM); Albumin 3.4 g/dL (3.5-5.0); Alkaline Phosphatase 95 U/L (38-126); Anion Gap 5 mmol/L; Blood Urea Nitrogen 17 mg/dL (9-20); Calcium 8.9 mg/dL (8.4-10.2); Carbon Dioxide 30 mmol/L (22-30); Chloride 101 mmol/L (98-107); Glucose 107 mg/dL (74-99); Magnesium 1.5 mg/dL (1.6-2.3); Non-African American GFR(CKD) >90 (>60 ml/min/1.73 sqM); Potassium 3.8 mmol/L (3.5-5.1); Sodium 136 mmol/L (137-145); Total Bilirubin 2.8 mg/dL (0.2-1.3); Total Protein 6.3 g/dL (6.3-8.2)
[2021-10-15 14:06] LABS: Basophils % (A) 1 %; Eosinophils # (A) 0.2 k/uL (0-0.7); Eosinophils % (A) 2 %; HCT 48.3 % (39.0-53.0); HGB 15.8 gm/dL (13.0-17.5); Lymphocytes # (A) 0.8 k/uL (1.0-4.8); Lymphocytes % (A) 11 %; MCH 35.1 pg (25.0-35.0); MCHC 32.7 g/dL (31.0-37.0); MCV 107.4 fL (80.0-100.0); Macrocytosis Moderate; Mean Platelet Volume 7.9; Monocytes # (A) 0.7 k/uL (0-1.0); Monocytes % (A) 9 %; Neutrophils # (A) 5.5 k/uL (1.3-7.7); Neutrophils % (A) 75 %; Platelet Count 219 k/uL (150-450); RDW 13.9 % (11.5-15.5); WBC 7.3 k/uL (3.8-10.6)
[2021-10-15] MEDS ORDERED: FUROSEMIDE 10 MG/ML 4 ML VIAL IV STA (14:38)
[2021-10-15] MEDS ORDERED: ACETAMINOPHEN TAB 325 MG TAB PO PRN (14:53)
[2021-10-15] MEDS ORDERED: NALOXONE 0.4 MG/ML 1 ML VIAL IV PRN (14:53)
[2021-10-15] MEDS ORDERED: IPRATROPIUM-ALBUTEROL 3 ML NEB INHALATION PRN (15:36)
--- NOTE | 2021-10-15 15:36 | P.HPIM ---
History of Present Illness H&P Date: 10/15/21 Chief Complaint: CC: shortness of breath Patient is a 75-year-old male with a past medical history of atrial fibrillation, hypertension and tobacco abuse who initially went to his PCPs office for evaluation of shortness of breath that started 2 weeks ago. At his P CPs office patient was satting in the mid 80s so he was sent to the ED for further evaluation. Patient states that he's gained 16 pounds in the last 2 weeks. Patient denies orthopnea or PND. Patient says that at baseline he is able to walk a block however now he gets short of breath with walking only 20 feet. Patient states that he does not eat any salt however when I asked him if he eats canned food he states that he eats a lot of canned food. Patient states that he is not aware that canned food contained a lot of salt. Patient says that he drinks up to 16 ounces of water daily. Patient denies any fever chills nausea vomiting. He denies any exposure to anyone with COVID-19. He denies any loss of taste or smell. In the ED patient was 84% on room air. Patient is now satting in the mid 90s on 6 L nasal cannula. Patient's labs were essentially unremarkable. His COVID-19 test was negative. Chest x-ray showed mild cardiomegaly with small bilateral pleural effusions. Patient has not received any intervention in the ED at the time of this dictation. Review of Systems 10 ROS reviewed and are negative except as noted in HPI Past Medical History Past Medical History: Atrial Fibrillation, Hyperlipidemia, Hypertension, Osteoarthritis (OA) Additional Past Medical History / Comment(s): Afib, nonischemic cardiomyopathy per past medical record but pt states he is not aware of this, past arthritis R ankle, colon polyps-benign, hiatal hernis, gastritis, duodenitis, recent bilateral ankle edema-started on lasix History of Any Multi-Drug Resistant Organisms: None Reported Past Surgical History: Heart Catheterization, Orthopedic Surgery, Tonsillectomy Additional Past Surgical History / Comment(s): 01/2019 EGD with bx and colonoscopy with bx, ORIF LEFT ELBOW X 3, LEFT GANGLION CYST. , CARDIOVERSION, fx- rt femur repair with plates and screws 03/29 Past Anesthesia/Blood Transfusion Reactions: No Reported Reaction Past Psychological History: No Psychological Hx Reported Smoking Status: Current every day smoker Past Alcohol Use History: Daily Past Drug Use History: None Reported - Past Family History Daughter(s) Family Medical History: Neurologic Disorder Additional Family Medical History / Comment(s): Daughter is . Father Family Medical History: Myocardial Infarction ([place]) Additional Family Medical History / Comment(s): Father of a [place] at the age of 60yrs. Mother Family Medical History: Cancer Additional Family Medical History / Comment(s): Mother of cancer at the age of 81 yrs. Pt cannot recall type of cancer. Sister(s) Family Medical History: Myocardial Infarction ([place]) Additional Family Medical History / Comment(s): Sister of a [place] at the age of 48yrs. Medications and Allergies Home Medications Medication Instructions Recorded Confirmed Type Metoprolol Tartrate [Lopressor] 100 mg PO BID 03/03/18 10/15/21 History amLODIPine [Norvasc] 5 mg PO DAILY 03/03/18 10/15/21 History Apixaban [Eliquis] 5 mg PO BID 06/23/20 10/15/21 History Ferrous Sulfate [Iron (65 MG 325 mg PO DAILY 06/23/20 10/15/21 History Elemental)] Allergies Allergy/AdvReac Type Severity Reaction Status Date / Time No Known Allergies Allergy Verified 10/15/21 14:27 Physical Exam Osteopathic Statement: *. No significant issues noted on an osteopathic structural exam other than those noted in the History and Physical/Consult. Vitals: Vital Signs Temp Pulse Resp BP Pulse Ox 10/15/21 15:00 70 20 124/81 96 10/15/21 14:00 67 20 133/84 98 10/15/21 12:45 98.9 F 78 24 146/89 84 L Intake and Output 10/15/21 10/15/21 10/15/21 06:59 14:59 22:59 Other: Weight 105.233 kg Results CBC & Chem 7: 10/15/21 13:19 10/15/21 13:19 Labs: Abnormal Lab Results - Last 24 Hours (Table) 10/15/21 10/15/21 Range/Units 13:19 13:19 MCV 107.4 H (80.0-100.0) fL MCH 35.1 H (25.0-35.0) pg Lymphocytes # 0.8 L (1.0-4.8) k/uL Sodium 136 L (137-145) mmol/L Glucose 107 H (74-99) mg/dL Magnesium 1.5 L (1.6-2.3) mg/dL Total Bilirubin 2.8 H (0.2-1.3) mg/dL Albumin 3.4 L (3.5-5.0) g/dL Assessment and Plan Assessment: Acute hypoxic respiratory failure likely multifactorial secondary to COPD exacerbation and heart failure Unspecified heart failure COPD exacerbation -We'll start patient on IV Lasix 40 mg twice a day -We'll start patient on IV Solu-Medrol, DuoNeb and doxycycline -Trend troponins -Check echocardiogram -Consult cardiology -Strict I's and O's, daily weight -Wean O2 as tolerated -At time of discharge patient when he counseling on diet compliance Elevated bilirubin -Patient is asymptomatic -Probably due to hepatic congestion -Continue to monitor CMP. We'll obtain further workup if no improvement. Atrial fibrillation -controlled. Resume metoprolol and Eliquis Hypertension -Blood pressure is acceptable -Resume amlodipine CODE STATUS:full code DPOA: oldest daughter DVT prophylaxis: Eliquis Discussed with: Patient, ER, rn Anticipated length of stay > than [address]: home A total of 50 minutes was spent on the care of this complex patient more than 50% of the time was spent in counseling and care coordination.
[2021-10-15] MEDS: ALBUTEROL NEBULIZED 2.5 MG/3 ML INHALATION SCH ×2 (17:09→20:46)
[2021-10-15] MEDS: AZITHROMYCIN 500 MG TAB PO SCH (18:12)
[2021-10-15] MEDS: methylPREDNISolone SOD SUCCI 125 MG/2 ML VIAL IV SCH (18:13)
[2021-10-15] MEDS: NICOTINE 21MG/24HR PATCH TRANSDERM SCH (18:13)
[2021-10-15 18:21] LABS: Glucose,Whole Blood 118 mg/dL (75-99)
[2021-10-15] MEDS: INSULIN ASPART (NovoLOG) 100 UNIT/ML VIAL SQ SCH (18:21)
[2021-10-15] MEDS: APIXABAN 5 MG TAB PO SCH (22:28)
[2021-10-15] MEDS: METOPROLOL TARTRATE 50 MG TAB PO SCH (22:28)
[2021-10-15] MEDS: FUROSEMIDE 10 MG/ML 4 ML VIAL IV SCH (22:28)
[2021-10-16] MEDS: methylPREDNISolone SOD SUCCI 125 MG/2 ML VIAL IV SCH ×5 (00:59→23:53)
[2021-10-16 06:56] LABS: ALT 9 U/L (4-49); AST 19 U/L (17-59); African American GFR (CKD) >90 (>60 ml/min/1.73 sqM); Alkaline Phosphatase 89 U/L (38-126); Anion Gap 5 mmol/L; Blood Urea Nitrogen 13 mg/dL (9-20); Calcium 8.4 mg/dL (8.4-10.2); Carbon Dioxide 35 mmol/L (22-30); Chloride 94 mmol/L (98-107); Globulin 2.9 g/dL; Glucose 161 mg/dL (74-99); Magnesium 1.3 mg/dL (1.6-2.3); Non-African American GFR(CKD) >90 (>60 ml/min/1.73 sqM); Potassium 3.7 mmol/L (3.5-5.1); Sodium 134 mmol/L (137-145); Total Bilirubin 2.2 mg/dL (0.2-1.3); Total Protein 5.9 g/dL (6.3-8.2)
[2021-10-16] MEDS ORDERED: Magnesium Replacement Protocol 1 EACH MISC MISCELLANE PRN (07:27)
[2021-10-16] MEDS: ALBUTEROL NEBULIZED 2.5 MG/3 ML INHALATION SCH ×4 (07:30→19:47)
[2021-10-16] MEDS ORDERED: POTASSIUM CHLORIDE ER 20 MEQ TAB.ER PO STA (08:22)
[2021-10-16] MEDS ORDERED: MAGNESIUM OXIDE 400 MG TAB PO SCH (09:00)
[2021-10-16] MEDS: MAGNESIUM SULFATE-D5W PMX 1 GM in DEXTROSE/WATER 1 100ML.BAG IVPB SCH ×3 (09:59→14:17)
--- NOTE | 2021-10-16 09:59 | P.PN ---
Subjective Progress Note Date: 10/16/21 Principal diagnosis: CC: shortness of breath Patient says that he has noticed improvement in his shortness of breath from yesterday. Patient states that he has lost 16 pounds in 1 day. Patient states that he has been urinating a lot. The respiratory therapist titrated down his oxygen from 6 L to 5 L this morning. I discussed the case with the baby attendant Objective - Vital Signs Vital signs: Vital Signs Temp 97.9 F 10/16/21 07:35 Pulse 76 10/16/21 07:40 Resp 20 10/16/21 07:35 BP 136/68 10/16/21 07:35 Pulse Ox 94 L 10/16/21 07:35 Intake & Output 10/15/21 10/16/21 10/16/21 18:59 06:59 18:59 Intake Total 200 Output Total 1500 1300 Balance -1500 -1100 Weight 100 kg 105.233 kg Intake: Oral 200 Output: Urine 1500 1300 Other: Voiding Method Urinal - Exam General examination - Alert and Oriented 3 in NAD Heart - + S1S2 no murmurs Lungs - bilateral wheezing Abdomen soft NT ND +ve BS Extremities - +1 bilateral pitting edema [employer]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0) fL MCH (25.0-35.0) pg Lymphocytes # (1.0-4.8) k/uL Sodium 134 L (137-145) mmol/L Chloride 94 L (98-107) mmol/L Carbon Dioxide 35 H (22-30) mmol/L Glucose 161 H (74-99) mg/dL POC Glucose (mg/dL) (75-99) mg/dL Magnesium 1.3 L (1.6-2.3) mg/dL Total Bilirubin 2.2 H (0.2-1.3) mg/dL Total Protein 5.9 L (6.3-8.2) g/dL Albumin 3.0 L (3.5-5.0) g/dL Assessment and Plan Assessment: Acute hypoxic respiratory failure likely multifactorial secondary to COPD exacerbation and heart failure Unspecified heart failure COPD exacerbation Tobacco abuse -Resume patient on IV Lasix 40 mg twice a day -Resume IV Solu-Medrol, DuoNeb and doxycycline -Troponin negative 3 -Check echocardiogram -Consult cardiology -Strict I's and O's, daily weight -Wean O2 as tolerated -At time of discharge patient when he counseling on diet compliance -Patient consult on smoking cessation. Nicotine patch -Keep magnesium above 2 and potassium above 4 Elevated bilirubin -Patient is asymptomatic -Probably due to hepatic congestion -Improving -Continue to monitor CMP. Atrial fibrillation -controlled. Resume metoprolol and Eliquis Hypertension -Blood pressure is acceptable -Resume amlodipine CODE STATUS:full code DPOA: oldest daughter DVT prophylaxis: Eliquis Discussed with: rn and cardiology Anticipated length of stay > than [address]: home
[2021-10-16] MEDS: METOPROLOL TARTRATE 50 MG TAB PO SCH ×2 (10:00→20:51)
[2021-10-16] MEDS: FERROUS SULFATE 325 MG TAB PO SCH (10:00)
[2021-10-16] MEDS: amLODIPine 5 MG TAB PO SCH (10:00)
[2021-10-16] MEDS: AZITHROMYCIN 500 MG TAB PO SCH (10:00)
[2021-10-16] MEDS: APIXABAN 5 MG TAB PO SCH ×2 (10:00→20:51)
[2021-10-16] MEDS: NICOTINE 21MG/24HR PATCH TRANSDERM SCH (10:01)
[2021-10-16] MEDS: FUROSEMIDE 10 MG/ML 4 ML VIAL IV SCH ×2 (10:01→20:51)
[2021-10-16 10:13] VITALS: BMI 34.2
--- NOTE | 2021-10-16 10:17 | P.CRDCN ---
History of Present Illness History of present illness: HISTORY OF PRESENTING ILLNESS This is a pleasant 75-year-old male past medical history significant for nonobstructive coronary artery disease, persistent atrial fibrillation on Eliquis, hypertension, dyslipidemia, peripheral vascular disease, former nicotine dependence, COPD. He follows in the office with Dr. Guzman. We have been asked to see in consultation for congestive heart failure. Patient presents to emergency department after his PCP appointment yesterday found to have SpO2 mid 80%s, he was sent to the emergency department for further evaluation. Patient has been having symptoms of shortness of breath, dyspnea on exertion for 2 weeks, he also has notice and increase in weight 16lbs. He denies chest pain, palpitations, lightheadedness, dizziness, near syncope, syncope, abd ominal pain, nausea or vomiting. Denies fever, cough, chills. He usually is able to walk a few blocks, but now can only walk about 20 feet without feeling short of breath. He denies orthopnea or PND. He does endorse eating a lot of canned foods. He states he did quit smoking. Patient started on IV Lasix 40 mg twice a day, patient was 2.8 L urine output over the past 24 hours. Patient states his breathing has improved since admission. DIAGNOSTICS -EKG reveals atrial fibrillation, heart rate 79 -Chest xray chronic parenchymal changes a small right pleural effusion associated right basilar compressive atelectasis. Tiny left pleural effusion. Mild cardiomegaly. -Telemetry tracings indicate atrial fibrillation with controlled ventricular rates -Most recent echocardiogram 06/2020 in the office revealed an EF of 50%, mild to moderate mitral regurgitation, moderate tricuspid regurgitation. -Last Cardiac Catheterization 04/2018 revealed mild to moderate triple vessel disease. Normal EF -Laboratory reviewed, proBNP 4710, troponin negative 3, 19 PCR negative, sodium 134, potassium 3.7, BUN 13, serum creatinine 0.7, magnesium 1.3, WBC 7.3, hemoglobin 15.8, platelets 219. -Current home medications include Eliquis 5 mg twice a day, metoprolol tartrate 100 mg twice a day, amlodipine 5 mg daily REVIEW OF SYSTEMS At the time of my exam: CONSTITUTIONAL: Denies fever or chills. CARDIOVASCULAR: +shortness of breath Denies chest pain, orthopnea, PND or palpitations. RESPIRATORY: Denies cough. GASTROINTESTINAL: Denies abdominal pain, diarrhea, constipation, nausea or vomiting. MUSCULOSKELETAL: Denies myalgias. NEUROLOGIC: Denies numbness, tingling, headache or weakness. ENDOCRINE: Denies fatigue, weight change, polydipsia or polyurina. GENITOURINARY: Denies burning, hematuria or urgency with micturation. HEMATOLOGIC: Denies history of anemia or bleeding. PHYSICAL EXAMINATION Blood pressure 136/68, heart rate 83, afebrile, saturations greater than 92% on 6 L nasal cannula CONSTITUTIONAL: No apparent distress. HEENT: Head is normocephalic. Pupils are equal, round. Sclerae anicteric. Mucous membranes of the mouth are moist. No JVD. No carotid bruit. CHEST EXAMINATION: Lungs are clear to auscultation. No chest wall tenderness is noted on palpation or with deep breathing. HEART EXAMINATION: Regular rate and rhythm. S1, S2 heard. No murmurs, gallops or rub. ABDOMEN: Soft, nontender. Positive bowel sounds. EXTREMITIES: 2+ peripheral pulses, no lower extremity edema and no calf tenderness. SKIN: warm, dry NEUROLOGIC EXAMINATION: Patient is awake, alert and oriented x3. ASSESSMENT Acute on chronic hypoxic respiratory failure, likely combination of acute on chronic diastolic heart failure and COPD exacerbation Acute on chronic diastolic heart failure COPD Exacerbation Non-obstructive coronary artery disease Chronic persistent atrial fibrillation on Eliquis Hypertension Dyslipidemia Former nicotine dependence Peripheral vascular disease Hypomagnesemia PLAN -Obtain 2D echocardiogram and doppler study to assess cardiac structure and function. -Continue IV Lasix 40mg BID -Monitor renal function and electrolytes -I/Os, daily weights -Replace magnesium per protocol -Continue patient's home medication amlodipine, Eliquis, metoprolol tartrate -Follow up with Dr. Guzman on discharge -Further examinations recent clinical course Thank you kindly for this consultation. Nurse Practitioner note has been reviewed, I agree with a documented findings and plan of care. Patient was seen and examined. Past Medical History Past Medical History: Atrial Fibrillation, Hyperlipidemia, Hypertension, Osteoarthritis (OA) Additional Past Medical History / Comment(s): Afib, nonischemic cardiomyopathy per past medical record but pt states he is not aware of this, past arthritis R ankle, colon polyps-benign, History of Any Multi-Drug Resistant Organisms: None Reported Past Surgical History: Heart Catheterization, Orthopedic Surgery, Tonsillectomy Additional Past Surgical History / Comment(s): 01/2019 EGD with bx and col onoscopy with bx, ORIF LEFT ELBOW X 3, LEFT GANGLION CYST. , CARDIOVERSION, fx- rt femur repair with plates and screws 03/29 Past Anesthesia/Blood Transfusion Reactions: No Reported Reaction Past Psychological History: No Psychological Hx Reported Smoking Status: Current every day smoker Past Alcohol Use History: Occasional Additional Past Alcohol Use History / Comment(s): Pt states he drinks 2-3 beers per day, if he drinks. Past Drug Use History: None Reported - Past Family History Daughter(s) Family Medical History: Neurologic Disorder Additional Family Medical History / Comment(s): Daughter is . Father Family Medical History: Myocardial Infarction ([place]) Additional Family Medical History / Comment(s): Father of a [place] at the age of 60yrs. Mother Family Medical History: Cancer Additional Family Medical History / Comment(s): Mother of cancer at the age of 81 yrs. Pt cannot recall type of cancer. Sister(s) Family Medical History: Myocardial Infarction ([place]) Additional Family Medical History / Comment(s): Sister of a [place] at the age of 48yrs. Medications and Allergies Home Medications Medication Instructions Recorded Confirmed Type Metoprolol Tartrate [Lopressor] 100 mg PO BID 03/03/18 10/15/21 History amLODIPine [Norvasc] 5 mg PO DAILY 03/03/18 10/15/21 History Apixaban [Eliquis] 5 mg PO BID 06/23/20 10/15/21 History Ferrous Sulfate [Iron (65 MG 325 mg PO DAILY 06/23/20 10/15/21 History Elemental)] Allergies Allergy/AdvReac Type Severity Reaction Status Date / Time No Known Allergies Allergy Verified 10/15/21 14:27 Physical Exam Vitals: Vital Signs Temp Pulse Pulse Resp BP BP BP 10/16/21 07:30 76 10/16/21 04:00 97.7 F 92 20 150/88 10/15/21 21:10 97.7 F 80 24 135/76 10/15/21 21:02 70 10/15/21 20:47 72 10/15/21 19:50 97.7 F 80 20 127/87 10/15/21 17:20 70 10/15/21 17:09 70 10/15/21 15:00 70 20 124/81 10/15/21 14:00 67 20 133/84 10/15/21 12:45 98.9 F 78 24 146/89 Pulse Ox 10/16/21 07:30 10/16/21 04:00 96 10/15/21 21:10 96 10/15/21 21:02 10/15/21 20:47 10/15/21 19:50 95 10/15/21 17:20 10/15/21 17:09 10/15/21 15:00 96 10/15/21 14:00 98 10/15/21 12:45 84 L Intake and Output 10/15/21 10/16/21 10/16/21 22:59 06:59 14:59 Intake Total 200 Output Total 1500 1300 Balance -1300 -1300 Intake: Oral 200 Output: Urine 1500 1300 Other: Voiding Method Urinal Weight 105.233 kg Results 10/15/21 13:19 10/16/21 05:14 Cardiac Enzymes 10/15/21 10/15/21 10/15/21 Range/Units 13:19 13:19 18:05 AST 23 (17-59) U/L Troponin I <0.012 <0.012 (0.000-0.034) ng/mL 10/15/21 10/16/21 Range/Units 21:43 05:14 AST 19 (17-59) U/L Troponin I <0.012 (0.000-0.034) ng/mL Coagulation 10/15/21 Range/Units 13:19 PT 11.1 (9.0-12.0) sec APTT 27.8 (22.0-30.0) sec CBC 10/15/21 Range/Units 13:19 WBC 7.3 (3.8-10.6) k/uL RBC 4.50 (4.30-5.90) m/uL Hgb 15.8 (13.0-17.5) gm/dL Hct 48.3 (39.0-53.0) % Plt Count 219 (150-450) k/uL Comprehensive Metabolic Panel 10/15/21 10/16/21 Range/Units 13:19 05:14 Sodium 136 L 134 L (137-145) mmol/L Potassium 3.8 3.7 (3.5-5.1) mmol/L Chloride 101 94 L (98-107) mmol/L Carbon Dioxide 30 35 H (22-30) mmol/L BUN 17 13 (9-20) mg/dL Creatinine 0.75 0.73 (0.66-1.25) mg/dL Glucose 107 H 161 H (74-99) mg/dL Calcium 8.9 8.4 (8.4-10.2) mg/dL AST 23 19 (17-59) U/L ALT 10 9 (4-49) U/L Alkaline Phosphatase 95 89 (38-126) U/L Total Protein 6.3 5.9 L (6.3-8.2) g/dL Albumin 3.4 L 3.0 L (3.5-5.0) g/dL Current Medications Generic Name Dose Route Start Last Admin Trade Name Freq PRN Reason Stop Dose Admin Acetaminophen 650 mg 10/15/21 14:53 Acetaminophen Tab 325 Mg Tab PO Q6HR PRN Mild Pain or Fever > 100.5 Albuterol Sulfate 2.5 mg 10/15/21 16:00 10/16/21 07:30 Albuterol Nebulized 2.5 Mg/3 Ml INHALATION 2.5 mg RT-QID MIN Administration Albuterol/Ipratropium 3 ml 10/15/21 15:36 Ipratropium-Albuterol 3 Ml Neb INHALATION RT-Q4H PRN Shortness Of Breath Or Wheezing Amlodipine Besylate 5 mg 10/16/21 09:00 Amlodipine 5 Mg Tab PO DAILY MIN Apixaban 5 mg 10/15/21 21:00 10/15/21 22:28 Apixaban 5 Mg Tab PO 5 mg BID MIN Administration Protocol Azithromycin 500 mg 10/15/21 15:45 10/15/21 18:12 Azithromycin 500 Mg Tab PO 500 mg DAILY MIN Administration Ferrous Sulfate 325 mg 10/16/21 09:00 Ferrous Sulfate 325 Mg Tab PO DAILY MIN Furosemide 40 mg 10/15/21 21:00 10/15/21 22:28 Furosemide 10 Mg/Ml 4 Ml Vial IV 40 mg Q12HR MIN Administration Magnesium Sulfate/Dextrose 1 100 mls @ 100 mls/hr 10/16/21 07:30 gm/ IV Solution IVPB 10/16/21 10:29 Q1H MIN Insulin Aspart 0 unit 10/15/21 17:30 10/15/21 18:21 Insulin Aspart (Novolog) 100 Unit/Ml Vial SQ Not Given AC-TID MIN Protocol Methylprednisolone Sodium Succinate 60 mg 10/15/21 18:00 10/16/21 05:43 Methylprednisolone Sod Succi 125 Mg/2 Ml Vial IV 60 mg Q6HR MIN Administration Metoprolol Tartrate 100 mg 10/15/21 21:00 10/15/21 22:28 Metoprolol Tartrate 50 Mg Tab PO 100 mg BID MIN Administration Miscellaneous Information 1 each 10/16/21 07:27 Magnesium Replacement Protocol 1 Each Misc MISCELLANE DAILY PRN Per Protocol Protocol Naloxone HCl 0.2 mg 10/15/21 14:53 Naloxone 0.4 Mg/Ml 1 Ml Vial IV Q2M PRN Opioid Reversal Nicotine 1 patch 10/15/21 15:45 10/15/21 18:13 Nicotine 21mg/24hr Patch TRANSDERM 1 patch DAILY MIN Administration Intake and Output 10/15/21 10/16/21 10/16/21 22:59 06:59 14:59 Intake Total 200 Output Total 1500 1300 Balance -1300 -1300 Intake: Oral 200 Output: Urine 1500 1300 Other: Voiding Method Urinal Weight 105.233 kg 10/15/21 13:19 10/16/21 05:14
[2021-10-16] MEDS: INSULIN ASPART (NovoLOG) 100 UNIT/ML VIAL SQ SCH (10:38)
--- NOTE | 2021-10-16 11:01 | ECHOF ---
Referral Reason:chf MEASUREMENTS -------- HEIGHT: 175.3 cm WEIGHT: 105.2 kg BP: 124/81 RVIDd: 3.6 cm (< 3.3) IVSd: 1.4 cm (0.6 - 1.1) LVIDd: 5.2 cm (3.9 - 5.3) LVPWd: 1.4 cm (0.6 - 1.1) IVSs: 2.1 cm LVIDs: 3.7 cm LVPWs: 2.0 cm LA Diam: 4.8 cm (2.7 - 3.8) Ao Diam: 3.7 cm (2.0 - 3.7) AV Cusp: 2.3 cm (1.5 - 2.6) MV EXCURSION: 16.486 mm (> 18.000) MV EF SLOPE: 164 mm/s (70 - 150) EPSS: 0.7 cm RAP: 15.00 mmHg RVSP: 60.71 mmHg FINDINGS -------- Atrial fibrillation. This was a technically difficult study with suboptimal views. The left ventricular size is normal. There is moderate concentric left ventricular hypertrophy. O verall left ventricular systolic function is mildly impaired with, an EF between 45 - 50 %. The right ventricle is mildly enlarged. The left atrium is moderately dilated. The right atrium is normal in size. 3.0mg of Lumason was utilized for enhancement of images Interatrial and interventricular septum intact. There is mild aortic valve sclerosis. Mild mitral annular calcification present. Mild mitral regurgitation is present. Mild tricuspid regurgitation present. There is severe pulmonary hypertension. The right ventricul ar systolic pressure, as measured by Doppler, is 60.71mmHg. Trace/mild (physiologic) pulmonic regurgitation. The aortic root size is normal. The inferior vena cava is dilated with no significant inspiratory collapse which is consistent estima naresh right atrial pressure of >15 mmHg. There is no pericardial effusion. CONCLUSIONS -------- 1. The left ventricular size is normal. 2. There is moderate concentric left ventricular hypertrophy. 3. Overall left ventricular systolic function is mildly impaired with, an EF between 45 - 50 %. 4. The right ventricle is mildly enlarged. 5. The left atrium is moderately dilated. 6. 3.0mg of Lumason was utilized for enhancement of images 7. There is mild aortic valve sclerosis. 8. Mild mitral annular calcification present. 9. Mild mitral regurgitation is present. 10. Mild tricuspid regurgitation present. 11. There is severe pulmonary hypertension. 12. The right ventricular systolic pressure, as measured by Doppler, is 60.71mmHg. 13. Trace/mild (physiologic) pulmonic regurgitation. 14. The inferior vena cava is dilated with no significant inspiratory collapse which is consistent es timated right atrial pressure of >15 mmHg. 15. There is no pericardial effusion. OBSTETRICAL NURSE: Kim Posada RDCS
[2021-10-17] MEDS: methylPREDNISolone SOD SUCCI 125 MG/2 ML VIAL IV SCH ×2 (05:44→12:41)
[2021-10-17] MEDS: APIXABAN 5 MG TAB PO SCH ×2 (07:44→21:07)
[2021-10-17] MEDS: FERROUS SULFATE 325 MG TAB PO SCH (07:44)
[2021-10-17] MEDS: amLODIPine 5 MG TAB PO SCH (07:44)
[2021-10-17] MEDS: FUROSEMIDE 10 MG/ML 4 ML VIAL IV SCH (07:44)
[2021-10-17] MEDS: METOPROLOL TARTRATE 50 MG TAB PO SCH ×2 (07:44→21:07)
[2021-10-17] MEDS: AZITHROMYCIN 500 MG TAB PO SCH (07:44)
[2021-10-17] MEDS: NICOTINE 21MG/24HR PATCH TRANSDERM SCH (07:44)
[2021-10-17 08:01] LABS: ALT 14 U/L (4-49); AST 21 U/L (17-59); African American GFR (CKD) >90 (>60 ml/min/1.73 sqM); Albumin 3.2 g/dL (3.5-5.0); Albumin/Globulin Ratio 1.1; Alkaline Phosphatase 78 U/L (38-126); Anion Gap 8 mmol/L; Blood Urea Nitrogen 20 mg/dL (9-20); Calcium 8.6 mg/dL (8.4-10.2); Carbon Dioxide 35 mmol/L (22-30); Chloride 88 mmol/L (98-107); Globulin 2.9 g/dL; Glucose 124 mg/dL (74-99); Magnesium 1.8 mg/dL (1.6-2.3); Non-African American GFR(CKD) 83 (>60 ml/min/1.73 sqM); Potassium 3.7 mmol/L (3.5-5.1); Sodium 131 mmol/L (137-145); Total Bilirubin 1.7 mg/dL (0.2-1.3); Total Protein 6.1 g/dL (6.3-8.2)
[2021-10-17] MEDS: ALBUTEROL NEBULIZED 2.5 MG/3 ML INHALATION SCH ×4 (08:06→23:02)
[2021-10-17] MEDS ORDERED: POTASSIUM CHLORIDE ER 20 MEQ TAB.ER PO STA (10:09)
[2021-10-17] MEDS: MAGNESIUM OXIDE 400 MG TAB PO SCH ×3 (10:33→21:08)
--- NOTE | 2021-10-17 12:29 | P.PN ---
Subjective Progress Note Date: 10/17/21 Principal diagnosis: CC: shortness of breath Patient states that his shortness of breath is much better. He states that he took a shower this morning without oxygen and felt short of breath however when he came out of the shower and sat down and put the oxygen back on he felt much better and recovered quickly. Patient stated that his lower extremity edema has improved. Patient currently on 5 L nasal cannula. Cardiology and he was in the room who said that they likely transition patient to oral Lasix. 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 Psych - Calm and cooperative - Labs CBC & Chem 7: 10/15/21 13:19 10/17/21 07:13 Labs: Abnormal Lab Results - Last 24 Hours (Table) 10/17/21 Range/Units 07:13 Sodium 131 L (137-145) mmol/L Chloride 88 L (98-107) mmol/L Carbon Dioxide 35 H (22-30) mmol/L Glucose 124 H (74-99) mg/dL Total Bilirubin 1.7 H (0.2-1.3) mg/dL Total Protein 6.1 L (6.3-8.2) g/dL Albumin 3.2 L (3.5-5.0) g/dL Assessment and Plan Assessment: Acute hypoxic respiratory failure likely multifactorial secondary to COPD exacerbation and heart failure Acute systolic heart failure Cor pulmonale Severe pulmonary hypertension COPD exacerbation Tobacco abuse -Resume patient on IV Lasix 40 mg twice a day. Awaiting for cardiology to transition patient to oral Lasix -Resume IV Solu-Medrol-> transition to oral steroids, DuoNeb and doxycycline -Troponin negative 3 -Echocardiogram shows decreased EF of 45-50%. Patient also has severe pulmonary hypertension. Right-sided filling pressures are elevated -Consult cardiology -Strict I's and O's, daily weight -Wean O2 as tolerated -At time of discharge patient when he counseling on diet compliance -Patient consult on smoking cessation. Nicotine patch -Keep magnesium above 2 and potassium above 4 -Patient will need home O2 prior to discharge -We'll plan to discharge the patient on Spiriva, Symbicort and rescue inhaler. Elevated bilirubin -Patient is asymptomatic -Probably due to hepatic congestion -Improving -Continue to monitor CMP. Atrial fibrillation -controlled. Resume metoprolol and Eliquis Hypertension -Blood pressure is acceptable -Resume amlodipine CODE STATUS:full code DPOA: oldest daughter DVT prophylaxis: Eliquis Discussed with: rn and cardiology Anticipated length of stay: Anticipate patient will be ready for discharge in the next 24-[address]: home
--- NOTE | 2021-10-17 14:32 | P.PN ---
Subjective Progress Note Date: 10/17/21 This is a pleasant 75-year-old male past medical history significant for nonobstructive coronary artery disease, persistent atrial fibrillation on Eliquis, hypertension, dyslipidemia, peripheral vascular disease, former nicotine dependence, COPD. He follows in the office with Dr. Guzman. We have been asked to see in consultation for congestive heart failure. Patient presents to emergency department after his PCP appointment yesterday found to have SpO2 mid 80%s, he was sent to the emergency department for further evaluation. Patient has been having symptoms of shortness of breath, dyspnea on exertion for 2 weeks, he also has notice and increase in weight 16lbs. He denies chest pain, palpitations, lightheadedness, dizziness, near syncope, syncope, abdominal pain, nausea or vomiting. Denies fever, cough, chills. He usually is able to walk a few blocks, but now can only walk about 20 feet without feeling short of breath. He denies orthopnea or PND. He does endorse eating a lot of canned foods. He states he did quit smoking prior to admission. Patient started on IV Lasix 40 mg twice a day. 10/17/2021 She was seen and examined resting comfortably with the head of bed flat. Overall feels his edema and breathing have improved. He has lost weight. Continues on Lasix 40 mg IV push every 12 hours. Labs today show BUN of 20 and creatinine 0.91 with a sodium of 131. Signs are stable. He remains on IV steroids and updrafts. He is currently on 5 L via nasal cannula with an oxygen saturation of 97%. Cardiogram with Doppler study done yesterday showed impaired LV systolic function with ejection fraction between 45-50%, mild MR, mild TR and severe pulmonary hypertension with an RVSP of 60 mmHg. Objective - Vital Signs Vital signs: Vital Signs Temp 97.7 F 10/17/21 12:35 Pulse 99 10/17/21 12:35 Resp 20 10/17/21 12:35 BP 103/59 10/17/21 12:35 Pulse Ox 97 10/17/21 12:35 Intake & Output 10/16/21 10/17/21 10/17/21 18:59 06:59 18:59 Intake Total 480 480 Output Total 600 Balance 480 -120 Weight 105.233 kg 91.5 kg Intake: Oral 480 480 Output: Urine 600 Other: Voiding Method Urinal Urinal Urinal - Exam PHYSICAL EXAMINATION: HEENT: Head is atraumatic, normocephalic. Pupils equal, round. Neck is supple. There is no elevated jugular venous pressure. HEART EXAMINATION: Heart sounds irregular rate and rhythm, S1 and S2 normal. No murmur or gallop heard. CHEST EXAMINATION: Lungs are diminished bilaterally with coarse expiratory wheezing throughout. No chest wall tenderness is noted on palpation or with deep breathing. ABDOMEN: Soft, nontender. Bowel sounds are heard. No organomegaly noted. EXTREMITIES: Evidence of improving peripheral edema and no calf tenderness noted. NEUROLOGIC patient is awake, alert and oriented x3. . - Labs CBC & Chem 7: 10/15/21 13:19 10/17/21 07:13 Labs: Abnormal Lab Results - Last 24 Hours (Table) 10/17/21 Range/Units 07:13 Sodium 131 L (137-145) mmol/L Chloride 88 L (98-107) mmol/L Carbon Dioxide 35 H (22-30) mmol/L Glucose 124 H (74-99) mg/dL Total Bilirubin 1.7 H (0.2-1.3) mg/dL Total Protein 6.1 L (6.3-8.2) g/dL Albumin 3.2 L (3.5-5.0) g/dL Assessment and Plan Assessment: Acute on chronic hypoxic respiratory failure, likely combination of acute on chronic diastolic heart failure and COPD exacerbation Acute on chronic diastolic heart failure COPD Exacerbation Severe Pulmonary Hypertension Non-obstructive coronary artery disease Chronic persistent atrial fibrillation on Eliquis Hypertension Dyslipidemia Former nicotine dependence Peripheral vascular disease Hypomagnesemia Plan: 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 We will switch the patient to by mouth Lasix. We'll continue to monitor the patient provide further recommendations accordingly. The above dictated assessment and findings were discussed with signing physician. The impression and plan of care have been directed as dictated. Felipa Quintanilla, Nurse Practitioner, acting as scribe for signing physician.
[2021-10-17] MEDS: FUROSEMIDE 40 MG TAB PO SCH (16:01)
[2021-10-18 07:14] LABS: ALT 18 U/L (4-49); AST 30 U/L (17-59); African American GFR (CKD) >90 (>60 ml/min/1.73 sqM); Alkaline Phosphatase 72 U/L (38-126); Anion Gap 3 mmol/L; Blood Urea Nitrogen 26 mg/dL (9-20); Calcium 8.6 mg/dL (8.4-10.2); Chloride 89 mmol/L (98-107); Globulin 2.9 g/dL; Glucose 107 mg/dL (74-99); Non-African American GFR(CKD) 80 (>60 ml/min/1.73 sqM); Potassium 3.8 mmol/L (3.5-5.1); Sodium 132 mmol/L (137-145); Total Bilirubin 1.4 mg/dL (0.2-1.3); Total Protein 5.9 g/dL (6.3-8.2)
[2021-10-18 07:20] LABS: Carbon Dioxide 40 mmol/L (22-30)
[2021-10-18] MEDS: AZITHROMYCIN 500 MG TAB PO SCH (08:35)
[2021-10-18] MEDS: MAGNESIUM OXIDE 400 MG TAB PO SCH (08:35)
[2021-10-18] MEDS: NICOTINE 21MG/24HR PATCH TRANSDERM SCH (08:35)
[2021-10-18] MEDS: FUROSEMIDE 40 MG TAB PO SCH ×2 (08:35→16:07)
[2021-10-18] MEDS: amLODIPine 5 MG TAB PO SCH (08:35)
[2021-10-18] MEDS: FERROUS SULFATE 325 MG TAB PO SCH (08:35)
[2021-10-18] MEDS: APIXABAN 5 MG TAB PO SCH ×2 (08:35→20:24)
[2021-10-18] MEDS: METOPROLOL TARTRATE 50 MG TAB PO SCH ×2 (08:37→20:24)
[2021-10-18] MEDS: predniSONE 50 MG TAB PO SCH (08:37)
[2021-10-18] MEDS ORDERED: POTASSIUM CHLORIDE ER 20 MEQ TAB.ER PO STA (09:22)
[2021-10-18] MEDS: ALBUTEROL NEBULIZED 2.5 MG/3 ML INHALATION SCH ×4 (09:50→20:02)
--- NOTE | 2021-10-18 11:27 | P.PN ---
Subjective Progress Note Date: 10/18/21 Patient says that his breathing is better. I did see patient walk from bathroom to his bed. He has significant wheezing. I counseled patient that when he has wheezing like this at home he needs to use his rescue inhaler. I discussed with nurse about doing home O2 eval. Patient would like to go home tomorrow. 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 Psych - Calm and cooperative - Labs CBC & Chem 7: 10/15/21 13:19 10/18/21 06:08 Labs: Abnormal Lab Results - Last 24 Hours (Table) 10/18/21 Range/Units 06:08 Sodium 132 L (137-145) mmol/L Chloride 89 L (98-107) mmol/L Carbon Dioxide 40 H (22-30) mmol/L BUN 26 H (9-20) mg/dL Glucose 107 H (74-99) mg/dL Total Bilirubin 1.4 H (0.2-1.3) mg/dL Total Protein 5.9 L (6.3-8.2) g/dL Albumin 3.0 L (3.5-5.0) g/dL Assessment and Plan Assessment: Acute hypoxic respiratory failure likely multifactorial secondary to COPD exacerbation and heart failure Acute systolic heart failure Cor pulmonale Severe pulmonary hypertension COPD exacerbation Tobacco abuse -Resume patient on IV Lasix 40 mg twice a day. Awaiting for cardiology to transition patient to oral Lasix -Resume IV Solu-Medrol-> transition to oral steroids, DuoNeb and doxycycline -Troponin negative 3 -Echocardiogram shows decreased EF of 45-50%. Patient also has severe pulmonary hypertension. Right-sided filling pressures are elevated -Consult cardiology -Strict I's and O's, daily weight -Wean O2 as tolerated -At time of discharge patient when he counseling on diet compliance -Patient consult on smoking cessation. Nicotine patch -Keep magnesium above 2 and potassium above 4 -Patient will need home O2 prior to discharge -We'll plan to discharge the patient on Spiriva, Symbicort and rescue inhaler. Elevated bilirubin -Patient is asymptomatic -Probably due to hepatic congestion -Improving -Continue to monitor CMP. Atrial fibrillation -controlled. Resume metoprolol and Eliquis Hypertension -Blood pressure is acceptable -Resume amlodipine CODE STATUS:full code DPOA: oldest daughter DVT prophylaxis: Eliquis Discussed with: rn and cardiology Anticipated length of stay: Anticipate patient will be ready for discharge in the next 24-[address]: home
--- NOTE | 2021-10-18 13:12 | P.PN ---
Subjective Progress Note Date: 10/18/21 This is a pleasant 75-year-old male past medical history significant for nonobstructive coronary artery disease, persistent atrial fibrillation on Eliquis, hypertension, dyslipidemia, peripheral vascular disease, former nicotine dependence, COPD. He follows in the office with Dr. Guzman. We have been asked to see in consultation for congestive heart failure. Patient presents to emergency department after his PCP appointment yesterday found to have SpO2 mid 80%s, he was sent to the emergency department for further evaluation. Patient has been having symptoms of shortness of breath, dyspnea on exertion for 2 weeks, he also has notice and increase in weight 16lbs. He denies chest pain, palpitations, lightheadedness, dizziness, near syncope, syncope, abdominal pain, nausea or vomiting. Denies fever, cough, chills. He usually is able to walk a few blocks, but now can only walk about 20 feet without feeling short of breath. He denies orthopnea or PND. He does endorse eating a lot of canned foods. He states he did quit smoking prior to admission. Patient started on IV Lasix 40 mg twice a day. 10/17/2021 The patient was seen and examined resting comfortably with the head of bed flat. Overall feels his edema and breathing have improved. He has lost weight. Continues on Lasix 40 mg IV push every 12 hours. Labs today show BUN of 20 and creatinine 0.91 with a sodium of 131. Signs are stable. He remains on IV steroids and updrafts. He is currently on 5 L via nasal cannula with an oxygen saturation of 97%. Cardiogram with Doppler study done yesterday showed impaired LV systolic function with ejection fraction between 45-50%, mild MR, mild TR and severe pulmonary hypertension with an RVSP of 60 mmHg. 10/18/2021 The patient was seen and examined sitting up side of the. Family is at bedside. He is tolerating oral Lasix. His edema is improved and he feels his breathing a bit better. He is to require oxygen and will be discharged home with home oxygen. Labs are stable. Vital signs are stable. Objective - Vital Signs Vital signs: Vital Signs Temp 97.6 F 10/18/21 11:29 Pulse 88 10/18/21 12:15 Resp 20 10/18/21 11:29 BP 133/77 10/18/21 11:29 Pulse Ox 90 L 12/05/21 11:49 Intake & Output 10/17/21 10/18/21 10/18/21 18:59 06:59 18:59 Intake Total 480 400 Output Total 600 Balance -120 400 Weight 100.652 kg Intake: Oral 480 400 Output: Urine 600 Other: Voiding Method Urinal Urinal # Voids 4 - Exam PHYSICAL EXAMINATION: HEENT: Head is atraumatic, normocephalic. Pupils equal, round. Neck is supple. There is no elevated jugular venous pressure. HEART EXAMINATION: Heart sounds irregular rate and rhythm, S1 and S2 normal. No murmur or gallop heard. CHEST EXAMINATION: Lungs are diminished bilaterally with faint expiratory wheezing throughout. No chest wall tenderness is noted on palpation or with deep breathing. ABDOMEN: Soft, nontender. Bowel sounds are heard. No organomegaly noted. EXTREMITIES: Evidence of improving peripheral edema and no calf tenderness noted. NEUROLOGIC patient is awake, alert and oriented x3. . - Labs CBC & Chem 7: 10/15/21 13:19 10/18/21 06:08 Labs: Abnormal Lab Results - Last 24 Hours (Table) 10/18/21 Range/Units 06:08 Sodium 132 L (137-145) mmol/L Chloride 89 L (98-107) mmol/L Carbon Dioxide 40 H (22-30) mmol/L BUN 26 H (9-20) mg/dL Glucose 107 H (74-99) mg/dL Total Bilirubin 1.4 H (0.2-1.3) mg/dL Total Protein 5.9 L (6.3-8.2) g/dL Albumin 3.0 L (3.5-5.0) g/dL Assessment and Plan Assessment: Acute on chronic hypoxic respiratory failure, likely combination of acute on chr onic diastolic heart failure and COPD exacerbation Acute on chronic diastolic heart failure COPD Exacerbation Severe Pulmonary Hypertension Non-obstructive coronary artery disease Chronic persistent atrial fibrillation on Eliquis Hypertension Dyslipidemia Former nicotine dependence Peripheral vascular disease Hypomagnesemia 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 Medications were reviewed and will continue the same. We'll continue to follow the patient in route this admission and provide further recommendations accordingly. The above dictated assessment and findings were discussed with signing physician. The impression and plan of care have been directed as dictated. Felipa Quintanilla, Nurse Practitioner, acting as scribe for signing physician.
[2021-10-18 20:19] VITALS: RESP 18
[2021-10-19 05:01] VITALS: TEMP 97.8
[2021-10-19 06:35] LABS: African American GFR (CKD) >90 (>60 ml/min/1.73 sqM); Blood Urea Nitrogen 27 mg/dL (9-20); Calcium 8.6 mg/dL (8.4-10.2); Chloride 88 mmol/L (98-107); Glucose 96 mg/dL (74-99); Non-African American GFR(CKD) 81 (>60 ml/min/1.73 sqM); Potassium 3.8 mmol/L (3.5-5.1); Sodium 133 mmol/L (137-145)
[2021-10-19 06:42] LABS: Anion Gap 7 mmol/L; Carbon Dioxide 38 mmol/L (22-30)
[2021-10-19] MEDS: amLODIPine 5 MG TAB PO SCH (08:34)
[2021-10-19] MEDS: AZITHROMYCIN 500 MG TAB PO SCH (08:34)
[2021-10-19] MEDS: FUROSEMIDE 40 MG TAB PO SCH (08:34)
[2021-10-19] MEDS: NICOTINE 21MG/24HR PATCH TRANSDERM SCH (08:34)
[2021-10-19] MEDS: APIXABAN 5 MG TAB PO SCH (08:34)
[2021-10-19] MEDS: FERROUS SULFATE 325 MG TAB PO SCH (08:34)
[2021-10-19] MEDS: METOPROLOL TARTRATE 50 MG TAB PO SCH (08:34)
[2021-10-19] MEDS: predniSONE 50 MG TAB PO SCH (08:34)
[2021-10-19 08:37] VITALS: BP 130/86
--- NOTE | 2021-10-19 10:06 | P.DS ---
Providers Date of admission: 10/15/21 14:54 Expected date of discharge: 10/19/21 Attending physician: Vee Altman DO Consults: 10/15/21 14:54 Consult Physician Routine Consulting Provider: Chris Ponce Consult Reason/Comments: CHF Do you want consulting provider notified?: Yes Primary care physician: Summer [facility] Course: Discharge Diagnosis: Acute hypoxic respiratory failure likely multi-factorial secondary to COPD exacerbation and heart failure Acute systolic heart failure Severe pulmonary hypertension COPD exacerbation Tobacco abuse. Elevated bilirubin likely due to hepatic congestion: Improving Atrial fibrillation: Controlled Hypertension: Controlled Hospital Course: Patient is a 75-year-old gentleman with a past medical history of tobacco abuse atrial fibrillation and hypertension who presented with shortness of breath. Patient also complained of gaining 16 pounds over the last 2 weeks. In the ED patient had bilateral pitting edema as well as wheezing on exam. He was started on diuretics as well as on COPD pathway. Patient had an echocardiogram done that showed reduced LV of 45-50%. It is also showed severe pulmonary hypertension and elevated right-sided filling pressures. Once patient was euvolemic he was transitioned to oral diuretics to Lasix 40 mg twice a day. At the time of discharge patient reported that his shortness of breath improved and he is looking for to going home. Patient had a home O2 evaluation done and he qualified for oxygen. Patient will need to be discharged on 5 L nasal cannula. I started patient on Symbicort and albuterol rescue inhaler for his COPD. Patient will be discharged on prednisone and azithromycin to complete a 5 day course. Patient instructed to follow cardiology and his PCP. [facility] Patient was counseled on tobacco cessation. Patient states that he will quit smoking. 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 Patient Condition at Discharge: Stable Plan - Discharge Summary Discharge Rx Participant: Yes New Discharge Prescriptions: New Nicotine 21Mg/24Hr Patch [Habitrol] 1 patch TRANSDERM DAILY #14 patch Furosemide [Lasix] 40 mg PO BID@0900,1600 #60 tab Budesonide/Formoterol Fumarate [Symbicort 160-4.5 Mcg Inhaler] 1 puff INHALATION BID #10.2 gm Albuterol Inhaler [Ventolin Hfa Inhaler] 2 puff INHALATION RT-QID PRN #8 gm PRN Reason: Wheezing Potassium Chloride ER [K-Dur 20] 20 meq PO DAILY #30 tab Magnesium Oxide [Mag-Ox] 400 mg PO DAILY #30 tablet predniSONE 50 mg PO DAILY #3 tab Azithromycin [Zithromax] 500 mg PO DAILY #2 tab Continue amLODIPine [Norvasc] 5 mg PO DAILY Metoprolol Tartrate [Lopressor] 100 mg PO BID Ferrous Sulfate [Iron (65 MG Elemental)] 325 mg PO DAILY Apixaban [Eliquis] 5 mg PO BID Discharge Medication List Metoprolol Tartrate [Lopressor] 100 mg PO BID 03/03/18 [History] amLODIPine [Norvasc] 5 mg PO DAILY 03/03/18 [History] Apixaban [Eliquis] 5 mg PO BID 06/23/20 [History] Ferrous Sulfate [Iron (65 MG Elemental)] 325 mg PO DAILY 06/23/20 [History] Albuterol Inhaler [Ventolin Hfa Inhaler] 2 puff INHALATION RT-QID PRN #8 gm 10/19/21 [Rx] Azithromycin [Zithromax] 500 mg PO DAILY #2 tab 10/19/21 [Rx] Budesonide/Formoterol Fumarate [Symbicort 160-4.5 Mcg Inhaler] 1 puff INHALATION BID #10.2 gm 10/19/21 [Rx] Furosemide [Lasix] 40 mg PO BID@0900,1600 #60 tab 10/19/21 [Rx] Magnesium Oxide [Mag-Ox] 400 mg PO DAILY #30 tablet 10/19/21 [Rx] Nicotine 21Mg/24Hr Patch [Habitrol] 1 patch TRANSDERM DAILY #14 patch 10/19/21 [Rx] Potassium Chloride ER [K-Dur 20] 20 meq PO DAILY #30 tab 10/19/21 [Rx] predniSONE 50 mg PO DAILY #3 tab 10/19/21 [Rx] Follow up Appointment(s)/Referral(s): Vipul Guzman MD [STAFF PHYSICIAN] - 2 Weeks Summer Vickers MD [Primary Care Provider] - 1-2 days [facility], [NON-STAFF] - 1 Week Patient Instructions/Handouts: Heart Healthy Diet (ED) Discharge Disposition: HOME WITH HOME HEALTH SERVICES Plan of Treatment: Please restrict your salt intake and also your fluid intake to 2L per day
--- NOTE | 2021-10-19 10:38 | P.PN ---
Subjective This is a pleasant 75-year-old male past medical history significant for nonobstructive coronary artery disease, persistent atrial fibrillation on El iquis, hypertension, dyslipidemia, peripheral vascular disease, former nicotine dependence, COPD. He follows in the office with Dr. Guzman. We have been asked to see in consultation for congestive heart failure. Patient presents to emergency department after his PCP appointment yesterday found to have SpO2 mid 80%s, he was sent to the emergency department for further evaluation. Patient has been having symptoms of shortness of breath, dyspnea on exertion for 2 weeks, he also has notice and increase in weight 16lbs. He denies chest pain, palpitations, lightheadedness, dizziness, near syncope, syncope, abdominal pain, nausea or vomiting. Denies fever, cough, chills. He usually is able to walk a few blocks, but now can only walk about 20 feet without feeling short of breath. He denies orthopnea or PND. He does endorse eating a lot of canned foods. He states he did quit smoking prior to admission. Patient started on IV Lasix 40 mg twice a day. 10/19/2021 The patient was seen and examined at bedside, sitting at the edge of the bed. Overall feels his edema and breathing have improved. He has lost weight. He's currently maintained on amlodipine 5 mg, Eliquis 5 mg twice a day, by mouth Lasix 40 mg twice a day, metoprolol titrate 100 mg twice a day. Labs reveal sodium 133, potassium 3.8, BUN 27, serum creatinine 0.9, magnesium 2.0. Blood pressure 130/86, heart rate 79, afebrile, saturations greater than 92% on 5 L nasal cannula he is requiring home O2. Echocardiogram showed impaired LV systolic function with ejection fraction between 45-50%, mild MR, mild TR and severe pulmonary hypertension with an RVSP of 60 mmHg. GENERAL: Well-appearing, well-nourished and in no acute distress. NECK: Supple without JVD or thyromegaly. LUNGS: Breath sounds diminished with expiratory wheezing to auscultation bilaterally. Respiration equal and unlabored. HEART: Irregular rate and rhythm without murmurs, rubs or gallops. S1 and S2 heard. EXTREMITIES: Normal range of motion, mild bilateral peripheral edema. No clubbing or cyanosis. Peripheral pulses intact. ASSESSMENT Acute on chronic hypoxic respiratory failure, likely combination of acute on chronic diastolic heart failure and COPD exacerbation Acute on chronic diastolic heart failure COPD Exacerbation Non-obstructive coronary artery disease Chronic persistent atrial fibrillation on Eliquis Hypertension Dyslipidemia Former nicotine dependence Peripheral vascular disease Hypomagnesemia PLAN -From a cardiology perspective we will continue current medical management. Patient is stable. Ok to discharge per primary team. -Follow up with Dr. Guzman on discharge Objective - Vital Signs Vital signs: Vital Signs Temp 97.8 F 10/19/21 05:00 Pulse 79 10/19/21 08:36 Resp 18 10/19/21 05:00 BP 130/86 10/19/21 08:36 Pulse Ox 92 L 10/19/21 05:00 Intake & Output 10/18/21 10/19/21 10/19/21 18:59 06:59 18:59 Intake Total 360 Output Total 600 Balance -240 Weight 100.652 kg 85 kg Intake: Oral 360 Output: Urine 600 Other: Voiding Method Urinal Urinal Urinal - Labs CBC & Chem 7: 10/15/21 13:19 10/19/21 05:37 Labs: Abnormal Lab Results - Last 24 Hours (Table) 10/19/21 Range/Units 05:37 Sodium 133 L (137-145) mmol/L Chloride 88 L (98-107) mmol/L Carbon Dioxide 38 H (22-30) mmol/L BUN 27 H (9-20) mg/dL
[2021-10-19] MEDS: ALBUTEROL NEBULIZED 2.5 MG/3 ML INHALATION SCH ×2 (11:33)
[2021-10-19 11:43] VITALS: PULSE 80
== END 2021-10-19 14:20 | disposition home health service (06) | DRG 291 ==
LOC: EC 12:37 → 5NMEDONC 14:54
PROVIDERS: ADMIT Internal Medicine; ATTEND Internal Medicine
DX: I11.0 Hypertensive heart disease with heart failure (principal); J96.21 Acute and chronic respiratory failure with hypoxia; I50.33 Acute on chronic diastolic (congestive) heart failure; I48.19 Other persistent atrial fibrillation; J44.1 Chronic obstructive pulmonary disease with (acute) exacerbation; J98.11 Atelectasis; I42.8 Other cardiomyopathies; E78.5 Hyperlipidemia, unspecified; E83.42 Hypomagnesemia; F17.200 Nicotine dependence, unspecified, uncomplicated; I08.1 Rheumatic disorders of both mitral and tricuspid valves; Z20.822 Contact with and (suspected) exposure to COVID-19; I25.10 Atherosclerotic heart disease of native coronary artery without angina pectoris; I27.29 Other secondary pulmonary hypertension; I27.81 Cor pulmonale (chronic); I73.9 Peripheral vascular disease, unspecified; K76.1 Chronic passive congestion of liver; Z79.01 Long term (current) use of anticoagulants; Z79.899 Other long term (current) drug therapy; Z80.9 Family history of malignant neoplasm, unspecified; Z82.49 Family history of ischemic heart disease and other diseases of the circulatory system
CPT/HCPCS: 36415; 71046; 80048; 80053; 83605; 83735; 83880; 84484; 85025; 85610; 85730; 87635; 93005; 93306; 94640; 94760; 99285

== ENCOUNTER 2022-07-12 10:01 | Emergency (ER) | payer MEDICARE, OTHER ==
[2022-07-12 10:06] VITALS: TEMP 97.7
[2022-07-12 10:19] VITALS: RESP 20
--- NOTE | 2022-07-12 10:29 | ED ---
General Adult HPI - General Chief complaint: Nausea/Vomiting/Diarrhea Stated complaint: Diarrhea Time Seen by Provider: 07/12/22 10:09 Source: patient, family, RN notes reviewed, old records reviewed Mode of arrival: wheelchair Limitations: no limitations - History of Present Illness Initial comments: This is a 76-year-old male patient that presents alert and oriented 4 with family complaining of diarrhea since Tuesday, 4-5 times a day. Denies any vom iting. No fevers. No abdominal or chest pain. Patient does have a history of COPD and he continues to smoke. He is on 3 L oxygen at home. Oxygen saturation 88% on room air. Patient has a history of A. fib, COPD and hypertension. -: days(s) (4) Radiation: non-radiation Severity scale (1-10): 0 Consistency: intermittent Improves with: none Worsens with: none Associated Symptoms: denies other symptoms Treatments Prior to Arrival: none - Related Data Home Medications Medication Instructions Recorded Confirmed Metoprolol Tartrate [Lopressor] 100 mg PO BID 03/03/18 10/15/21 amLODIPine [Norvasc] 5 mg PO DAILY 03/03/18 10/15/21 Apixaban [Eliquis] 5 mg PO BID 06/23/20 10/15/21 Ferrous Sulfate [Iron (65 MG 325 mg PO DAILY 06/23/20 10/15/21 Elemental)] Previous Rx's Medication Instructions Recorded Albuterol Inhaler [Ventolin Hfa 2 puff INHALATION RT-QID PRN #8 gm 10/19/21 Inhaler] Azithromycin [Zithromax] 500 mg PO DAILY #2 tab 10/19/21 Budesonide/Formoterol Fumarate 1 puff INHALATION BID #10.2 gm 10/19/21 [Symbicort 160-4.5 Mcg Inhaler] Furosemide [Lasix] 40 mg PO BID@0900,1600 #60 tab 10/19/21 Magnesium Oxide [Mag-Ox] 400 mg PO DAILY #30 tablet 10/19/21 Nicotine 21Mg/24Hr Patch [Habitrol] 1 patch TRANSDERM DAILY #14 patch 10/19/21 Potassium Chloride ER [K-Dur 20] 20 meq PO DAILY #30 tab 10/19/21 predniSONE 50 mg PO DAILY #3 tab 10/19/21 Doxycycline [Vibramycin] 100 mg PO BID 5 Days #10 capsule 07/12/22 Allergies Allergy/AdvReac Type Severity Reaction Status Date / Time No Known Allergies Allergy Verified 07/12/22 10:06 Review of Systems ROS Statement: Those systems with pertinent positive or pertinent negative responses have been documented in the HPI. ROS Other: All systems not noted in ROS Statement are negative. Past Medical History Past Medical History: Atrial Fibrillation, COPD, Hyperlipidemia, Hypertension, Osteoarthritis (OA) Additional Past Medical History / Comment(s): Afib, nonischemic cardiomyopathy per past medical record but pt states he is not aware of this, past arthritis R ankle, colon polyps-benign, History of Any Multi-Drug Resistant Organisms: None Reported Past Surgical History: Heart Catheterization, Orthopedic Surgery, Tonsillectomy Additional Past Surgical History / Comment(s): 01/2019 EGD with bx and colonoscopy with bx, ORIF LEFT ELBOW X 3, LEFT GANGLION CYST. , CARDIOVERSION, fx- rt femur repair with plates and screws 03/29 Past Anesthesia/Blood Transfusion Reactions: No Reported Reaction Past Psychological History: No Psychological Hx Reported Smoking Status: Current every day smoker Past Alcohol Use History: Occasional Past Drug Use History: None Reported - Past Family History Daughter(s) Family Medical History: Neurologic Disorder Additional Family Medical History / Comment(s): Daughter is . Father Family Medical History: Myocardial Infarction (ID) Additional Family Medical History / Comment(s): Father of a ID at the age of 60yrs. Mother Family Medical History: Cancer Additional Family Medical History / Comment(s): Mother of cancer at the age of 81 yrs. Pt cannot recall type of cancer. Sister(s) Family Medical History: Myocardial Infarction (ID) Additional Family Medical History / Comment(s): Sister of a ID at the age of 48yrs. General Exam Limitations: no limitations General appearance: alert, in no apparent distress Head exam: Present: atraumatic Eye exam: Absent: scleral icterus, conjunctival injection, periorbital swelling, periorbital tenderness ENT exam: Present: mucous membranes moist Neck exam: Present: normal inspection, full ROM. Absent: tenderness, meningismus, lymphadenopathy Respiratory exam: Present: other. Absent: respiratory distress, wheezes, rales, rhonchi, stridor, accessory muscle use Cardiovascular Exam: Present: regular rate GI/Abdominal exam: Present: soft, normal bowel sounds. Absent: distended, tenderness, guarding, rebound, rigid Extremities exam: Present: normal inspection, normal capillary refill. Absent: tenderness Back exam: Absent: rash noted Neurological exam: Present: alert, oriented X3 Psychiatric exam: Present: normal affect, normal mood Skin exam: Present: warm, dry, normal color. Absent: cyanosis, diaphoretic, petechiae, pallor Course Vital Signs 07/12/22 07/12/22 07/12/22 10:03 10:16 12:14 Temperature 97.7 F Pulse Rate 79 68 63 Respiratory 16 20 20 Rate Blood Pressure 118/74 127/98 118/90 O2 Sat by Pulse 88 L 93 L 95 Oximetry Medical Decision Making - Medical Decision Making Patient presents with diarrhea since Tuesday. No fevers, chest pain or difficulty in breathing. Abdomen soft and nontender on exam. Labs show no evidence of leukocytosis, hemoglobin and hematocrit are stable. Electrolytes are unremarkable. Chest x-ray does show left lower lobe concerning for pneumonia and a small right pleural effusion. No evidence of bowel obstruction. Patient's diarrhea is likely viral. Patient does have a cough and will be treated for pneumonia on x-ray with doxycycline. Patient and family are agreeable to this plan of care. Vital signs are stable. He was directed to return to the emergency room with any new or concerning symptoms including difficulty breathing, chest pain or persistent nausea vomiti ng. Case discussed with Dr. Castro - Lab Data Result diagrams: 07/12/22 10:52 07/12/22 10:52 Lab Results 07/12/22 07/12/22 Range/Units 10:52 10:52 WBC 5.5 (3.8-10.6) k/uL RBC 4.51 (4.30-5.90) m/uL Hgb 14.9 (13.0-17.5) gm/dL Hct 47.1 (39.0-53.0) % MCV 104.5 H (80.0-100.0) fL MCH 32.9 (25.0-35.0) pg MCHC 31.5 (31.0-37.0) g/dL RDW 14.7 (11.5-15.5) % Plt Count 249 (150-450) k/uL MPV 7.9 Neutrophils % 67 % Lymphocytes % 16 % Monocytes % 9 % Eosinophils % 4 % Basophils % 1 % Neutrophils # 3.7 (1.3-7.7) k/uL Lymphocytes # 0.9 L (1.0-4.8) k/uL Monocytes # 0.5 (0-1.0) k/uL Eosinophils # 0.2 (0-0.7) k/uL Basophils # 0.1 (0-0.2) k/uL Macrocytosis Moderate Sodium 132 L (137-145) mmol/L Potassium 4.2 (3.5-5.1) mmol/L Chloride 94 L (98-107) mmol/L Carbon Dioxide 31 H (22-30) mmol/L Anion Gap 7 mmol/L BUN 8 L (9-20) mg/dL Creatinine 0.83 (0.66-1.25) mg/dL Est GFR (CKD-EPI)AfAm >90 (>60 ml/min/1.73 sqM) Est GFR (CKD-EPI)NonAf 87 (>60 ml/min/1.73 sqM) Glucose 101 H (74-99) mg/dL Calcium 8.3 L (8.4-10.2) mg/dL Disposition Clinical Impression: Pneumonia, Acute diarrhea, COPD (chronic obstructive pulmonary disease) Disposition: HOME SELF-CARE Condition: Good Instructions (If sedation given, give patient instructions): COPD (Chronic Obstructive Pulmonary Disease) (ED), Acute Diarrhea (ED), Bacterial Pneumonia ( ED) Additional Instructions: Increase your fluid intake to prevent dehydration while having diarrhea. Take antibiotics as prescribed for a left lower lobe pneumonia. Take deep breaths and cough every hour. Return to the emergency room with any new or concerning symptoms. Follow-up with your primary care doctor this week. Prescriptions: Doxycycline [Vibramycin] 100 mg PO BID 5 Days #10 capsule Is patient prescribed a controlled substance at d/c from ED?: No Referrals: Summer Vickers MD [Primary Care Provider] - 1-2 days Time of Disposition: 11:36
--- NOTE | 2022-07-12 10:36 | XR ---
EXAMINATION TYPE: XR abdomen acute w cxr DATE OF EXAM: 07/12/2022 10:30 AM INDICATION: Patient age:Male; 76 years old; Reason for study: r/o obstruction; COMPARISON: Chest radiograph 10/15/2021 TECHNIQUE: Two radiographic views of the abdomen (upright and supine) and a frontal chest radiograph were obtained. FINDINGS CHEST: Lungs/Pleura: There is blunting of the right costophrenic angle. Left lower lobe airspace opacities a re present. Mediastinum: Unremarkable. Vasculature: Normal. Heart: Normal in size. Musculoskeletal: The osseous structures are intact. Other findings: No significant. FINDINGS ABDOMEN: Bowel gas pattern: Normal without dilated loops of small or large bowel. Fecal material and gas are d emonstrated throughout the colon and rectum. Abnormal calcifications: None. Musculoskeletal: Fixation hardware of the right proximal femur hardware appears intact. No acute frac tures identified. Other: None. IMPRESSION: 1. Left lower lobe airspace opacities concerning for pneumonia. 2. Small right pleural effusion. 3. Nonspecific bowel gas pattern without definitive evidence for obstruction.
[2022-07-12 11:10] LABS: African American GFR (CKD) >90 (>60 ml/min/1.73 sqM); Anion Gap 7 mmol/L; Blood Urea Nitrogen 8 mg/dL (9-20); Calcium 8.3 mg/dL (8.4-10.2); Carbon Dioxide 31 mmol/L (22-30); Chloride 94 mmol/L (98-107); Glucose 101 mg/dL (74-99); Non-African American GFR(CKD) 87 (>60 ml/min/1.73 sqM); Potassium 4.2 mmol/L (3.5-5.1); Sodium 132 mmol/L (137-145)
[2022-07-12 11:25] LABS: Basophils # (A) 0.1 k/uL (0-0.2); Basophils % (A) 1 %; Eosinophils # (A) 0.2 k/uL (0-0.7); Eosinophils % (A) 4 %; HCT 47.1 % (39.0-53.0); HGB 14.9 gm/dL (13.0-17.5); Lymphocytes # (A) 0.9 k/uL (1.0-4.8); Lymphocytes % (A) 16 %; MCH 32.9 pg (25.0-35.0); MCHC 31.5 g/dL (31.0-37.0); MCV 104.5 fL (80.0-100.0); Macrocytosis Moderate; Mean Platelet Volume 7.9; Monocytes # (A) 0.5 k/uL (0-1.0); Monocytes % (A) 9 %; Neutrophils # (A) 3.7 k/uL (1.3-7.7); Neutrophils % (A) 67 %; Platelet Count 249 k/uL (150-450); RBC 4.51 m/uL (4.30-5.90); RDW 14.7 % (11.5-15.5); WBC 5.5 k/uL (3.8-10.6)
[2022-07-12] MEDS ORDERED: DOXYCYCLINE 100 MG CAP PO STA (11:37)
[2022-07-12 12:34] VITALS: BP 118/90; PULSE 63
== END 2022-07-12 12:14 | disposition home or self-care (01) ==
LOC: EC 10:01
DX: J44.9 Chronic obstructive pulmonary disease, unspecified (principal); J18.9 Pneumonia, unspecified organism; R19.7 Diarrhea, unspecified; F17.200 Nicotine dependence, unspecified, uncomplicated; I48.91 Unspecified atrial fibrillation; I10 Essential (primary) hypertension; Z79.899 Other long term (current) drug therapy; Z79.01 Long term (current) use of anticoagulants
CPT/HCPCS: 36415; 74022; 80048; 85025; 99284

== ENCOUNTER → 2022-10-05 | Outpatient (CLI) | payer MEDICARE, OTHER ==
[2022-10-05 14:20] LABS: HCT 42.3 % (39.6-50.0); HGB 13.6 g/dL (13.0-17.0); MCH 33.5 pg (27.0-32.0); MCHC 32.2 g/dL (32.0-37.0); MCV 104.2 fL (80.0-97.0); Mean Platelet Volume 9.2 fL (9.5-12.2); NRBC Per 100 WBC 0 /100 WBCS (0.0-0.0); Platelet Count 299 X 10*3/uL (140-440); RBC 4.06 X 10*6/uL (4.40-5.60); RDW 14.9 % (11.5-14.5); WBC 5.63 X 10*3/uL (4.50-10.00)
[2022-10-05 14:32] LABS: ALT 8 U/L (10-49); AST 12 U/L (14-35); African American GFR (CKD) 107.7 (60.0-200.0); Albumin 3.1 g/dL (3.8-4.9); Albumin/Globulin Ratio 1.29 (1.60-3.17); Alkaline Phosphatase 109 U/L (41-126); BUN/Creat Ratio 17.14 Ratio (12.00-20.00); Calcium 8.6 mg/dL (8.7-10.3); Carbon Dioxide 30.9 mmol/L (20.0-27.5); Chloride 98 mmol/L (96-109); Chol/HDL Ratio 2.04 Ratio; Globulin 2.4 g/dL (1.6-3.3); Glucose 97 mg/dL (70-110); LDL Cholesterol,Calculated 55.6 mg/dL (0.0-131.0); Potassium 4.5 mmol/L (3.5-5.5); Sodium 135 mmol/L (135-145); Total Protein 5.5 g/dL (6.2-8.2); VLDL Calculation 10.34 mg/dL (5.00-40.00)
== END | disposition home or self-care (01) ==
LOC: LABWHC1 08:21
PROVIDERS: ATTEND Internal Medicine Interventional Cardiology
DX: I10 Essential (primary) hypertension (principal); E78.2 Mixed hyperlipidemia
CPT/HCPCS: 36415; 80053; 80061; 85027

== ENCOUNTER → 2023-04-13 | Outpatient (CLI) | payer MEDICARE, OTHER ==
[2023-04-13 14:47] LABS: HCT 40.5 % (39.6-50.0); HGB 12.7 g/dL (13.0-17.0); MCH 30.8 pg (27.0-32.0); MCHC 31.4 g/dL (32.0-37.0); MCV 98.1 fL (80.0-97.0); Mean Platelet Volume 9.3 fL (9.5-12.2); NRBC Per 100 WBC 0 /100 WBCS (0.0-0.0); Platelet Count 411 X 10*3/uL (140-440); RBC 4.13 X 10*6/uL (4.40-5.60); RDW 14.6 % (11.5-14.5); WBC 8.74 X 10*3/uL (4.50-10.00)
[2023-04-13 15:24] LABS: ALT 15 U/L (10-49); AST 16 U/L (14-35); Albumin 2.5 g/dL (3.8-4.9); Alkaline Phosphatase 135 U/L (41-126); Blood Urea Nitrogen 15.6 mg/dL (9.0-27.0); Carbon Dioxide 29.9 mmol/L (20.0-27.5); Chloride 95 mmol/L (96-109); Globulin 2.5 g/dL (1.6-3.3); Glucose 95 mg/dL (70-110); Non-African American GFR(CKD) 73.3 (60.0-200.0); Sodium 139 mmol/L (135-145)
== END | disposition home or self-care (01) ==
LOC: LABWHC1 09:25
PROVIDERS: ATTEND Nurse Practitioner Adult Health
DX: I48.11 Longstanding persistent atrial fibrillation (principal); R60.0 Localized edema
CPT/HCPCS: 36415; 80053; 83880; 84443; 85027

== ENCOUNTER 2023-05-06 07:54 | Day surgery (SDC) | payer MEDICARE, OTHER ==
[2023-05-06] MEDS ORDERED: LACTATED RINGERS 1,000 ML IV ONE (08:17)
[2023-05-06 08:23] VITALS: TEMP 97
[2023-05-06] MEDS ORDERED: PROPOFOL 10 MG/ML 20 ML VIAL IV ONE (08:55)
--- NOTE | 2023-05-06 09:28 | P.PCN ---
Date of Procedure: 05/06/23 Procedure(s) Performed: Brief history: Patient is a pleasant 77-year-old white male scheduled for an elective upper endoscopy as well as colonoscopy as a part of evaluation of chronic diarrhea and iron deficiency anemia. His last EGD and colonoscopy was done by Dr. Murray in January 2019 and was noted to have a large ascending colon polyp and surgery was recommended at that time.. Procedure performed: Esophagogastroduodenoscopy with biopsy Colonoscopy with snare polypectomy and tattooing with Darya ink Preoperative diagnosis: Iron deficiency anemia and chronic diarrhea Anesthesia: MAC Procedure: After informed consent was obtained from the patient was brought into the endoscopy unit and IV sedation was administered by anesthesia under continuous monitoring. Initially upper endoscopy was done. The Olympus GF 160 video endoscope was inserted inserted into the mouth and esophagus intubated without any difficulty and was gradually advanced into the stomach and duodenum and carefully examined. The bulb and second part of the duodenum appeared normal. As his were done from the duodenum to rule out celiac disease. The scope was then withdrawn into the stomach adequately insufflated with air and upon careful examination the antrum had mild gastritis and biopsies were done from this area . Mucosa of the and body, cardia and fundus appeared normal. The scope was then withdrawn into the esophagus. The GE junction was located at 40 cm to the incisors. It appeared regular with no erythema erosions or ulcerations. Rest of the esophagus appeared normal. Patient tolerated the procedure well. At this time the patient continued to remain sedation. Initial digital rectal examination was normal. Olympus CF 160 video colonoscope was then inserted into the rectum and gradually advanced to the ascending colon where there was a large polypoid mass involving the entire circumference with some ulceration noted and multiple biopsies were done from this area. The scope could not be advanced beyond into the cecum. Distal ascending colon, appeared normal. In the transverse colon there was a 1 cm polyp removed by snare polypectomy. In the descending colon there was a 1.5 cm broad-based polyp removed by snare polypectomy. In the sigmoid there was a 1 cm and 5 mm polyp removed by snare polypectomy. Scattered left sided diverticulosis seen. Rest of the t sigmoid colon and rectum appeared normal. Retroflexion was performed in the rectum and grade 2 internal hemorrhoids were noted. Patient tolerated the procedure well. Impression: 1.Upper endoscopy revealed mild antral gastritis and small hiatal hernia 2.Colonoscopy revealed: a) large circumferential polypoid mass involving the mid ascending colon status post multiple biopsies followed by tattooing with b) 1 cm transverse colon polyp status post polypectomy c) 1.5 cm descending colon polyp status post polypectomy d) 5 mm and 1 cm sigmoid; polyp status post polypectomy e) and desmoid diverticulosis and large internal hemorrhoids Recommendations: Findings of this examination were discussed with the patient as well as his family. He was advised to follow with the biopsy results. He'll be seen in office next week. In the meantime he'll be scheduled for CT of abdomen and pelvis.
[2023-05-06 09:48] VITALS: RESP 16
[2023-05-06 10:10] VITALS: BP 101/68; PULSE 69
== END 2023-05-06 10:17 | disposition home or self-care (01) ==
LOC: ORWHC2ENDO 07:54
PROVIDERS: ATTEND Internal Medicine Gastroenterology
DX: C18.2 Malignant neoplasm of ascending colon (principal); D12.3 Benign neoplasm of transverse colon; D12.4 Benign neoplasm of descending colon; D12.5 Benign neoplasm of sigmoid colon; K52.9 Noninfective gastroenteritis and colitis, unspecified; K57.30 Diverticulosis of large intestine without perforation or abscess without bleeding; K64.1 Second degree hemorrhoids; K29.50 Unspecified chronic gastritis without bleeding; K31.89 Other diseases of stomach and duodenum; K44.9 Diaphragmatic hernia without obstruction or gangrene; D50.9 Iron deficiency anemia, unspecified; I11.0 Hypertensive heart disease with heart failure; I50.9 Heart failure, unspecified; I48.91 Unspecified atrial fibrillation; I27.20 Pulmonary hypertension, unspecified; J44.9 Chronic obstructive pulmonary disease, unspecified; Z79.01 Long term (current) use of anticoagulants; Z79.899 Other long term (current) drug therapy; Z91.048 Other nonmedicinal substance allergy status; Z91.041 Radiographic dye allergy status
CPT/HCPCS: 88305; 45380; 45385; 43239; J2704; 45381

== ENCOUNTER → 2023-05-13 | Outpatient (CLI) | payer MEDICARE, OTHER ==
[2023-05-13 15:23] LABS: African American GFR (CKD) 79 (>60 ml/min/1.73 sqM); Albumin 2.3 g/dL (3.5-5.0); Anion Gap 4 mmol/L; Blood Urea Nitrogen 23 mg/dL (9-20); Calcium 7.3 mg/dL (8.4-10.2); Carbon Dioxide 32 mmol/L (22-30); Chloride 94 mmol/L (98-107); Glucose 107 mg/dL (74-99); Non-African American GFR(CKD) 68 (>60 ml/min/1.73 sqM); Sodium 130 mmol/L (137-145)
[2023-05-13 15:34] LABS: Potassium 3.3 mmol/L (3.5-5.1)
--- NOTE | 2023-05-15 17:32 | CT ---
EXAMINATION TYPE: CT abdomen pelvis wo/w con CT DLP: 1381 mGycm, Automated exposure control for dose reduction was used. DATE OF EXAM: 05/13/2023 4:40 PM COMPARISON: Acute abdominal series 07/12/2022, CT Angio abdominal aorta with runoff 06/23/2020 CLINICAL INDICATION:Male, 77 years old with history of C18.7 MALIGNANT NEOPLASM OF SIGMOID COLON; col on ca TECHNIQUE: Standard CT of the abdomen and pelvis before and after the uneventful administration of 100 cc of Isovue-300 intravenously. Oral contrast was administered.. Coronal and sagittal reformats w ere performed. FINDINGS: LOWER CHEST: Small right pleural effusion with associated atelectasis. Centrilobular emphysematous ch anges. Coronary arterial calcifications. Mitral annulus calcifications. No pericardial effusion. ABDOMEN LIVER: Unremarkable GALLBLADDER AND BILE DUCTS: Layering increased densities within the lumen consistent with gallstones are present. No biliary duct dilatation. PANCREAS: Unremarkable. SPLEEN: Unremarkable. ADRENAL GLANDS: Unremarkable right adrenal gland. Stable thickening of the left adrenal gland.. KIDNEYS AND URETERS: No evidence of hydronephrosis or renal calculus. The kidneys enhance symmetrical ly. Bilateral subcentimeter hypodense foci within both kidneys cortically which is too small characte rize but likely represent cysts. There is a left inferior pole cyst measuring up to 3.0 cm. Is demons trated within both renal collecting systems on the delayed phase. PELVIS BLADDER: Incompletely distended but grossly unremarkable. Calcifications within the penis suggests Pe yronie's disease. REPRODUCTIVE: Unremarkable. ABDOMEN & PELVIS STOMACH AND BOWEL: Enhancing soft tissue mass identified within the cecum extending into the ascendin g colon grossly measuring 8.6 x 4.7 cm (series 6, image 41). There is some circumferential short segm ent wall thickening suggests involving the distal aspect of the sigmoid colon (series 6, image 74). E levation is limited due to lack of intravenous contrast in this region. Diverticula involving second/ third portion of the duodenum. Distal colonic diverticulosis without evidence for acute diverticuliti s. The appendix is within normal limits. Enteric contrast reaches the descending colon. No evidence o f bowel obstruction. PERITONEUM: No evidence of pneumoperitoneum or free fluid. VASCULATURE: Severe atherosclerotic calcifications are present throughout the abdominal aorta and its branches. No evidence of aortic aneurysm. MUSCULOSKELETAL: No acute osseous abnormalities. Fixation changes of the right proximal femur. No agg ressive osseous lesion. LYMPH NODES: Abnormal prominent right lower quadrant mesenteric lymph nodes with largest measuring up to 1.1 cm (series 6, image 53). Additional prominent right common iliac chain lymph node measuring 0 .9 cm short axis (series 6, image 60). Additional prominent bilateral inguinal lymph nodes with large st in the right measuring 1.0 cm short axis (series 6, image 92). SOFT TISSUE/ABDOMINAL WALL: Diffuse anasarca. Small fat filled umbilical hernia. IMPRESSION: 1. Dominant 8.6 x 4.7 cm mass in the cecum with extension into the ascending colon. This is consider ed malignancy until proven otherwise and direct visualization is recommended. Additionally there is q uestionable short segment wall thickening of the distal colon which may represent reported sigmoid ma lignancy. 2. Abnormal enlarged right lower quadrant lymph nodes with mildly prominent right common iliac chain lymph node and bilateral inguinal lymph nodes. These are concerning for possible metastatic disease. Consider further evaluation with PET/CT. 3. Colonic diverticulosis without evidence for acute diverticulitis. 4. Cholelithiasis. 5. Small right pleural effusion with associated atelectasis. 6. COPD changes.
== END | disposition home or self-care (01) ==
LOC: RADCTMAIN 14:39
PROVIDERS: ATTEND Internal Medicine Gastroenterology
DX: C18.7 Malignant neoplasm of sigmoid colon (principal); C18.0 Malignant neoplasm of cecum; J44.9 Chronic obstructive pulmonary disease, unspecified; J90 Pleural effusion, not elsewhere classified; J98.11 Atelectasis; K57.30 Diverticulosis of large intestine without perforation or abscess without bleeding; K80.20 Calculus of gallbladder without cholecystitis without obstruction
CPT/HCPCS: 80069; 74178; 36415; Q9967